=== PATIENT | male | born 1970 | race Two or more races ===

== ENCOUNTER → 2020-06-12 11:32 | Outpatient (BNVA) | payer MEDICARE, SELFPAY | PROVIDERS: PCP Internal Medicine; Visit Provider Internal Medicine Cardiovascular Disease | DX: Z01.810 Encounter for preprocedural cardiovascular examination (principal); I10 Essential (primary) hypertension; E66.01 Morbid (severe) obesity due to excess calories; Z68.43 Body mass index [BMI] 50.0-59.9, adult; Z79.899 Other long term (current) drug therapy | CPT/HCPCS: 99213 ==

== ENCOUNTER 2020-06-21 18:26 | Emergency (ER) | payer MEDICARE, SELFPAY ==
[2020-06-21 18:34] VITALS: BP 140/80; PULSE 83; RESP 16; TEMP 36.7; O2SAT 99; BMI 50.8
--- NOTE | 2020-06-21 19:56 | ED_ITS ---
HPI - Back Pain/Injury General Chief Complaint: Back Pain/Injury Stated Complaint: back pain Time Seen by Provider: 06/21/20 19:40 Source: patient Mode of arrival: ambulatory History of Present Illness HPI Narrative: 50-year-old male complaining of left-sided mid/ upper back pain x3 days. Reports taking Tylenol/ Motrin, and Percocet at home without relief. Denies direct trauma/ falls. Reports pain worse with movement/ arm movement. Denies numbness, tingling, weakness, urinary incontinence or retention Related Data Home Medications Medication Instructions Recorded Confirmed amlodipine 5 mg tablet 5 mg PO DAILY 06/10/20 06/12/20 atenolol 50 mg tablet 50 mg PO DAILY 06/10/20 06/12/20 celecoxib 200 mg capsule 0 mg PO 06/10/20 06/12/20 cetirizine 10 mg tablet 10 mg PO DAILY 06/10/20 06/12/20 cholecalciferol (vitamin D3) 50 50 mcg PO DAILY 06/10/20 06/12/20 mcg (2,000 unit) capsule cyanocobalamin (vitamin B-12) 1,000 mcg PO DAILY 06/10/20 06/12/20 1,000 mcg tablet,extended release duloxetine 60 mg capsule,delayed 0 mg PO 06/10/20 06/12/20 release furosemide 20 mg tablet 20 mg PO QAM 06/10/20 06/12/20 lisinopril 20 mg tablet 20 mg PO DAILY 06/10/20 06/12/20 omeprazole 20 mg capsule,delayed 20 mg PO DAILY 06/10/20 06/12/20 release oxycodone-acetaminophen 5 mg-325 1 tab PO TID PRN 06/10/20 06/12/20 mg tablet Previous Rx's Medication Instructions Recorded cyclobenzaprine 5 mg PO Q8H PRN 5 Days #14 tab 06/21/20 lidocaine [Lidoderm] 1 patch TOPICAL DAILY PRN #30 ea 06/21/20 MDD remove after 12 hours Allergies Allergy/AdvReac Type Severity Reaction Status Date / Time No Known Allergies Allergy Unverified 05/29/20 17:45 Review of Systems Review of Systems: Constitutional: No Weight loss, No Fever, No Chills Cardiovascular: No Chest Pain, No SOB Respiratory: No Cough Gastrointestinal: No Nausea, No Vomiting, No Diarrhea, No Constipation, No Abdominal pain Genitourinary: No Urinary Incontinence /retention, No Flank Pain, No Urinary Flow Changes Musculoskeletal: No joint pain, No Myalgias, No Joint Swelling Skin: No Skin Lesions, No rash Neuro: No Weakness, No Numbness, No Paresthesias Yes all other systems are reviewed and are negative Neurologic: Denies Sensory deficit (Neuro) [facility] Past Medical History Attestation statement: The following information was validated with the patient. Medical History (Updated 06/21/20 @ 19:58 by KINZA Manzanares) Carpal tunnel syndrome Depression GERD (gastroesophageal reflux disease) Hypertension Migraine Morbid obesity Osteoarthritis Sleep apnea Surgical History (Updated 06/07/20 @ 10:46 by CHERYL Crane) History of bunionectomy of left great toe Social History Social History (Updated 06/12/20 @ 11:49 by CHERYL Crane) Alcohol intake: former Smoking Status: Former smoker Smoked in Last 30 Days: No Use of substances other than those prescribed or required for medical reasons: No Advance Directives: No Advance Directives Information Provided: Yes Physical Exam Vital Signs: Vital Signs: Vital Signs Temp Pulse Resp BP Pulse Ox 06/21/20 18:34 98.0 F 83 16 140/80 H 99 Body Mass Index 50.8 Const: General: cooperative and healthy appearing Orientation/consciousness: patient oriented x3 Limitations: no limitations HENMT: Head: Yes normal to inspection Ears: hearing grossly normal bilaterally General nose exam: Normal external nose present Face and sinus: Yes normal facial exam Eyes: General: appearance normal, both eyes and all related structures EOM: EOMs intact bilaterally Neck: Neck: Yes normal visual inspection and No midline deformity Resp: Effort & Inspection: normal respiratory effort Back/Spine/Pelvis: Other: left mid thoracic MSK tenderness. No deformity. No midline spinous tenderness throughout Skin: Wounds: no wounds Neuro: Other: no saddle anesthesia General: patient oriented x3 Gait exam (Neuro): Normal gait present Motor exam (neuro): 5/5 motor strength present throughout Sensory Exam: No Sensory deficit (Neuro) Extrem: General: Yes normal to inspection Course Course Course Narrative: no red flag symptoms or midline spinous tenderness throughout. Likely MSK pain. Low concern for cauda equina/cord compression Discharge Plan Discharge Clinical Impression: Thoracic back pain Patient Disposition: Home, Self-Care Instructions: Back Pain (ED) Additional Instructions: continue taking Tylenol and Motrin at home In addition continue taking previously prescribed Percocet only when pain is severe Add Flexeril to her regimen. It is a muscle relaxer, take at night as it makes you drowsy, do not drive, drink alcohol, or operate anything while taking it In addition Lidoderm patches or numbing patches, apply to painful area if you develop numbness, tingling, weakness, or incontinence return to the ED Prescriptions: New lidocaine [Lidoderm] 5 % adhesive patch,medicated 1 patch topical DAILY MDD remove after 12 hours PRN (Reason: pain) Qty: 30 RF: 0 cyclobenzaprine 5 mg tablet 5 mg PO Q8H PRN (Reason: pain (scale score 7-10)) 5 Days Qty: 14 RF: 0 No Action oxycodone-acetaminophen 5-325 mg tablet 1 tab PO TID PRNRF: 0 cholecalciferol (vitamin D3) 50 mcg (2,000 unit) capsule 50 mcg PO DAILY RF: 0 atenolol 50 mg tablet 50 mg PO DAILY RF: 0 omeprazole 20 mg capsule,delayed release(DR/EC) 20 mg PO DAILY RF: 0 amlodipine 5 mg tablet 5 mg PO DAILY RF: 0 cetirizine 10 mg tablet 10 mg PO DAILY RF: 0 cyanocobalamin (vitamin B-12) 1,000 mcg tablet extended release 1,000 mcg PO DAILY RF: 0 duloxetine 60 mg capsule,delayed release(DR/EC) 0 mg PO RF: 0 furosemide 20 mg tablet 20 mg PO QAM RF: 0 lisinopril 20 mg tablet 20 mg PO DAILY RF: 0 celecoxib 200 mg capsule 0 mg PO RF: 0 Referrals: Paola Cooney MD [Primary Care Provider] - 5 days
== END 2020-06-21 20:35 | disposition home or self-care (01) ==
PROVIDERS: Emergency Provider Emergency Medicine Emergency Medical Services; PCP Internal Medicine
DX: M54.6 Pain in thoracic spine (principal); I10 Essential (primary) hypertension; Z87.891 Personal history of nicotine dependence; Z79.899 Other long term (current) drug therapy
CPT/HCPCS: 99283; 99284

== ENCOUNTER → 2020-07-02 08:17 | Outpatient (BNVA) | payer MEDICARE, SELFPAY | PROVIDERS: PCP Internal Medicine; Referring Provider Internal Medicine; Visit Provider Surgery | DX: E66.01 Morbid (severe) obesity due to excess calories (principal); Z71.3 Dietary counseling and surveillance | CPT/HCPCS: 99212 ==

== ENCOUNTER 2020-07-08 11:51 | Outpatient (REF) | payer MEDICARE, SELFPAY ==
--- NOTE | 2020-07-08 11:55 | XR_ITS ---
EXAMINATION: XR CHEST CLINICAL INFORMATION: Sleep apnea. COMPARISON: Chest 01/12/2017 TECHNIQUE: 2 views of the chest were obtained. FINDINGS: The lungs are well-expanded and clear. The heart size and pulmonary vascularity is normal. There is mild spondylosis dorsal spine. No lytic process. XR/XR chest 2V IMPRESSION: Unremarkable chest exam.
== END 2020-07-08 11:52 | disposition home or self-care (01) ==
LOC: HO.XRAY 11:51
PROVIDERS: PCP Internal Medicine; Visit Provider Surgery
DX: G47.30 Sleep apnea, unspecified (principal); I10 Essential (primary) hypertension
CPT/HCPCS: 71046

== ENCOUNTER 2020-07-22 17:48 | Outpatient (REF) | payer MEDICARE, SELFPAY | END 2020-07-22 17:49 | disposition home or self-care (01) | LOC: HO.LAB 17:48 | PROVIDERS: PCP Internal Medicine; Visit Provider Internal Medicine | DX: Z20.828 Contact with and (suspected) exposure to other viral communicable diseases (principal) | CPT/HCPCS: C9803; U0003 ==

== ENCOUNTER → 2020-08-19 08:09 | Outpatient (BNVA) | payer MEDICARE, SELFPAY | PROVIDERS: PCP Internal Medicine; Referring Provider Internal Medicine; Visit Provider Surgery | DX: E66.01 Morbid (severe) obesity due to excess calories (principal); G47.30 Sleep apnea, unspecified; K21.9 Gastro-esophageal reflux disease without esophagitis; I10 Essential (primary) hypertension | CPT/HCPCS: Q3014 ==

== ENCOUNTER → 2020-08-21 08:23 | Outpatient (BNVA) | payer MEDICARE, SELFPAY | PROVIDERS: PCP Internal Medicine; Referring Provider Internal Medicine; Visit Provider Dietitian, Registered | DX: Z76.89 Persons encountering health services in other specified circumstances (principal) ==

== ENCOUNTER → 2020-08-22 08:21 | Outpatient (BNVA) | payer MEDICARE, SELFPAY | PROVIDERS: PCP Internal Medicine; Referring Provider Internal Medicine; Visit Provider Dietitian, Registered | DX: Z76.89 Persons encountering health services in other specified circumstances (principal) ==

== ENCOUNTER → 2020-09-23 08:09 | Outpatient (BNVA) | payer MEDICARE, SELFPAY | PROVIDERS: PCP Internal Medicine; Visit Provider Surgery | DX: Z13.89 Encounter for screening for other disorder (principal) | CPT/HCPCS: Q3014 ==

== ENCOUNTER → 2020-10-01 08:05 | Outpatient (BNVA) | payer MEDICARE, SELFPAY | PROVIDERS: PCP Internal Medicine; Visit Provider Surgery | DX: E66.01 Morbid (severe) obesity due to excess calories (principal); I10 Essential (primary) hypertension; G47.30 Sleep apnea, unspecified; K21.9 Gastro-esophageal reflux disease without esophagitis | CPT/HCPCS: Q3014 ==

== ENCOUNTER → 2020-10-03 10:34 | Outpatient (BNVA) | payer OTHER, SELFPAY | PROVIDERS: PCP Internal Medicine; Visit Provider Physician Assistant ==

== ENCOUNTER 2020-10-09 10:17 | Inpatient (IN) | payer OTHER, SELFPAY ==
--- NOTE | 2020-10-03 | ECG_ITS ---
Test Reason : ARACELY Blood Pressure : / mmHG Vent. Rate : 064 BPM Atrial Rate : 064 BPM P-R Int : 164 ms QRS Dur : 094 ms QT Int : 408 ms P-R-T Axes : 037 -20 010 degrees QTc Int : 420 ms Normal sinus rhythm Moderate voltage criteria for LVH, may be normal variant Borderline ECG When compared with ECG of 17-NOV-2015 08:04, No significant change was found Referred By: Ivonne Hinojosa Electronically Signed By:KJ HASTINGS
[2020-10-03 09:36] LABS: MANUAL DIFF FLAG NO
[2020-10-03 10:04] LABS: Basophils Percent Auto 0.3 % (0-2); Eosinophils Absolute Auto 0.2 X10*3/uL (0.0-0.4); Eosinophils Percent Auto 2.8 % (0-4); Hematocrit 47.9 % (42-52); Imm Gran Abs Auto 0.02 X10*3/uL (0.00-0.03); Imm Gran Pct Auto 0.3 % (0.0-0.4); Lymphocytes Percent Auto 27.4 % (20-40); Mean Corpuscular HGB Conc 33.4 g/dl (31.0-36.0); Mean Corpuscular Hemoglobin 30.9 pg (27.0-33.0); Mean Corpuscular Volume 92.6 fL (80-98); Mean Platelet Volume 10.5 fL (9.4-12.4); Monocytes Absolute Auto 0.8 X10*3/uL (0.1-1.2); Monocytes Percent Auto 10.2 % (2-11); Neutrophils Absolute Auto 4.4 X10*3/uL (2.0-8.3); Platelet Count 230 X10*3/uL (160-400); Red Blood Count 5.17 X10*6/uL (4.60-5.80); Red Cell Distribution Width 13.2 % (11.0-16.0); White Blood Count 7.5 X10*3/uL (4.8-10.8)
[2020-10-03 10:10] LABS: INTERNATIONAL NORM RATIO 1.2 (0.9-1.1); Prothrombin Time 14.4 SEC (10.8-13.0)
[2020-10-03 10:31] LABS: Estimated Average Glucose 105 mg/dL; Hemoglobin A1c % 5.3 %
[2020-10-03 11:06] LABS: Alanine Aminotransferase 20 U/L (0-40); Albumin Level 4.3 g/dL (3.5-5.0); Alkaline Phosphatase 61 U/L (39-117); Anion Gap 13 (12-20); Aspartate Amino Transferase 25 U/L (5-37); Blood Urea Nitrogen 20 mg/dL (9-16); C Reactive Protein 1.89 mg/dL (< or = 0.50); Calcium 9.3 mg/dL (8.4-10.2); Carbon Dioxide 30 mmol/L (22-29); Chloride 102 mmol/L (96-108); Cholesterol 151 mg/dL; Estimated Glomerular Filt Rate > 60; Glucose Random 91 mg/dL (60-115); HDL Cholesterol 36 mg/dL; LDL Cholesterol Calculated 107 mg/dl; Potassium 4.2 mmol/l (3.3-5.1); Sodium 141 mmol/L (135-145); Total Protein 7.5 g/dL (6.5-8.0); Triglycerides 41 mg/dL
[2020-10-03 11:10] LABS: TSH reflex Free T4 1.38 mIU/mL (0.32-4.0)
[2020-10-03 11:55] VITALS: BP 143/68; PULSE 76; RESP 20; O2SAT 98; BMI 47.4
--- NOTE | 2020-10-03 12:32 | P.CONAN_ITS ---
Documented by User: Ivonne Hollingsworthney 10/06/20 14:23 HPI - Anesthesia Eval Consult details Narrative: 50yo M for Gastrectomy Sleeve Cardiac cleared 11/2019, Harjeet delayed d/t COVID. No changes. Continues to f/u with cardiology for htn. [facility] Past Medical History Medical History Carpal tunnel syndrome Depression GERD (gastroesophageal reflux disease) Hx of renal calculi Hypertension Migraine Osteoarthritis Sleep apnea Family History Family History Father Arthritis Mother No problems noted. Brother No problems noted. Sister No problems noted. Sister No problems noted. Sister No problems noted. Sister No problems noted. Sister No problems noted. Son No problems noted. Son No problems noted. Son No problems noted. Son No problems noted. Family history of problems with anesthesia: No Surgical History Surgical History History of bunionectomy of left great toe History of varicose vein ligation Morbid obesity History of Problems with Anesthesia: No Social History Social History (Updated 10/03/20 @ 12:21 by Ary Blankenship) Household Members: Family Are you a primary long term acute care registered nurse to a significant other at home: No Do you presently have visiting nurse or other home services: No Alcohol intake: current Alcohol intake frequency: holidays/special occasions only Smoking Status: Former smoker Tobacco Type: Cigarette Cigarettes Per Day: 1 Years Smoked: <1 Smoked in Last 30 Days: No Smoking Quit Date: 2000 Use of substances other than those prescribed or required for medical reasons: No Have you been hit, kicked, punched, or otherwise hurt by someone within the past year? If so, by whom?: No Advance Directives Information Provided: No Recently lost weight without trying: No Narrative Narrative: No recent illness. No CP/SOB with walking. Activity limited to knee pain. Meds Allergies Allergy/AdvReac Type Severity Reaction Status Date / Time No Known Allergies Allergy Verified 10/09/20 10:08 Home Medications Medication Instructions Recorded Confirmed Type atenolol 50 mg tablet 50 mg PO DAILY 06/10/20 10/03/20 History cetirizine 10 mg tablet 10 mg PO DAILY 06/10/20 10/03/20 History duloxetine 60 mg capsule,delayed 60 mg PO BID 06/10/20 10/03/20 History release furosemide 20 mg tablet 20 mg PO QAM 06/10/20 10/03/20 History lisinopril 20 mg tablet 20 mg PO DAILY 06/10/20 10/03/20 History omeprazole 20 mg capsule,delayed 20 mg PO BEDTIME 06/10/20 10/03/20 History release oxycodone-acetaminophen 5 mg-325 1 tab PO TID PRN 06/10/20 10/03/20 History mg tablet hydroxyzine pamoate [Vistaril] 50 mg PO BEDTIME PRN 10/03/20 10/03/20 History Exam Exam Date and Time: October 03, 2020 1232 Height,Weight and Vital Signs: Height 5 ft 8 in Weight 141.5 kg Last Vital Signs Pulse 76 10/03/20 11:55 Resp 20 10/03/20 11:55 BP 143/68 H 10/03/20 11:55 Pulse Ox 98 10/03/20 11:55 Pertinent Lab Results Pertinent Lab Results: Laboratory Tests 10/03/20 10/03/20 10/03/20 09:11 09:11 09:11 WBC 7.5 RBC 5.17 Hgb 16.0 Hct 47.9 MCV 92.6 MCH 30.9 MCHC 33.4 RDW 13.2 Plt Count 230 MPV 10.5 Immature Gran % (Auto) 0.3 Neut % (Auto) 59.0 Lymph % (Auto) 27.4 Crisp % (Auto) 10.2 Eos % (Auto) 2.8 Baso % (Auto) 0.3 Lymph # (Auto) 2.0 Crisp # (Auto) 0.8 Eos # (Auto) 0.2 Baso # (Auto) 0.0 Abs Immat Gran (auto) 0.02 Absolute Neuts (auto) 4.4 Absolute Nucleated RBC 0.000 Nucleated RBC % (auto) 0.0 PT 14.4 H INR 1.2 H APTT 34.0 Sodium 141 Potassium 4.2 Chloride 102 Carbon Dioxide 30 H Anion Gap 13 BUN 20 H Creatinine 0.77 Estim Creat Clear Calc TNP Estimated GFR > 60 Random Glucose 91 Estimat Average Glucose Hemoglobin A1c % Calcium 9.3 Total Bilirubin 1.0 AST 25 ALT 20 Alkaline Phosphatase 61 C-Reactive Protein 1.89 H Total Protein 7.5 Albumin 4.3 Triglycerides 41 Cholesterol 151 LDL Cholesterol, Calc 107 HDL Cholesterol 36 TSH 1.38 Blood Type Antibody Screen 10/03/20 10/03/20 09:11 09:11 WBC RBC Hgb Hct MCV MCH MCHC RDW Plt Count MPV Immature Gran % (Auto) Neut % (Auto) Lymph % (Auto) Crisp % (Auto) Eos % (Auto) Baso % (Auto) Lymph # (Auto) Crisp # (Auto) Eos # (Auto) Baso # (Auto) Abs Immat Gran (auto) Absolute Neuts (auto) Absolute Nucleated RBC Nucleated RBC % (auto) PT INR APTT Sodium Potassium Chloride Carbon Dioxide Anion Gap BUN Creatinine Estim Creat Clear Calc Estimated GFR Random Glucose Estimat Average Glucose 105 Hemoglobin A1c % 5.3 Calcium Total Bilirubin AST ALT Alkaline Phosphatase C-Reactive Protein Total Protein Albumin Triglycerides Cholesterol LDL Cholesterol, Calc HDL Cholesterol TSH Blood Type O Positive Antibody Screen NEGATIVE Narrative Narrative: CXR 06/2020 Unremarkable exam. ECHO 10/2019 LVEF 60-65% No RWMA No valve pathology MIBI 2019: No definitive evidence of ischemia or infarction Gated LVEF 48% no transient ischemic dilation but LV chamber is dilated EKG 10/03/20 Normal sinus rhythm @ 64 Moderate voltage criteria for LVH, may be normal variant Borderline ECG When compared with ECG of 17-NOV-2015 08:04, No significant change was found Airway TM Dist: >3cm Neck ROM: Full Adult Head Mouth w/Numbe Teeth: 1. Missing Loose/Missing/Broken Teeth: Yes (Molars pulled) Heart: RRR Lungs: CTAB Assessment and Plan Assessment Anesthesia Assessment: Anesthesia Plan Discussed and PAT Visit Documented by User: Luis A Langley MD 10/09/20 12:56 [facility] Past Medical History Medical History Carpal tunnel syndrome Depression GERD (gastroesophageal reflux disease) Hx of renal calculi Hypertension Migraine Osteoarthritis Sleep apnea Family History Family History Father Arthritis Mother No problems noted. Brother No problems noted. Sister No problems noted. Sister No problems noted. Sister No problems noted. Sister No problems noted. Sister No problems noted. Son No problems noted. Son No problems noted. Son No problems noted. Son No problems noted. Surgical History Surgical History History of bunionectomy of left great toe History of varicose vein ligation Morbid obesity Social History Social History (Updated 10/03/20 @ 12:21 by Ary Blankenship) Household Members: Family Are you a primary long term acute care registered nurse to a significant other at home: No Do you presently have visiting nurse or other home services: No Alcohol intake: current Alcohol intake frequency: holidays/special occasions only Smoking Status: Former smoker Tobacco Type: Cigarette Cigarettes Per Day: 1 Years Smoked: <1 Smoked in Last 30 Days: No Smoking Quit Date: 2000 Use of substances other than those prescribed or required for medical reasons: No Have you been hit, kicked, punched, or otherwise hurt by someone within the past year? If so, by whom?: No Advance Directives Information Provided: No Recently lost weight without trying: No Meds Allergies Allergy/AdvReac Type Severity Reaction Status Date / Time No Known Allergies Allergy Verified 10/09/20 10:08 Home Medications Medication Instructions Recorded Confirmed Type atenolol 50 mg tablet 50 mg PO DAILY 06/10/20 10/03/20 History cetirizine 10 mg tablet 10 mg PO DAILY 06/10/20 10/03/20 History duloxetine 60 mg capsule,delayed 60 mg PO BID 06/10/20 10/03/20 History release furosemide 20 mg tablet 20 mg PO QAM 06/10/20 10/03/20 History lisinopril 20 mg tablet 20 mg PO DAILY 06/10/20 10/03/20 History omeprazole 20 mg capsule,delayed 20 mg PO BEDTIME 06/10/20 10/03/20 History release oxycodone-acetaminophen 5 mg-325 1 tab PO TID PRN 06/10/20 10/03/20 History mg tablet hydroxyzine pamoate [Vistaril] 50 mg PO BEDTIME PRN 10/03/20 10/03/20 History Exam Airway Adult Head Mouth w/Numbe Teeth: 1. Missing Loose/Missing/Broken Teeth: Yes Assessment and Plan Assessment Anesthesia Assessment: Anesthesia Plan Discussed and Chart Reviewed Final Anesthetic Review NPO: Yes ASA Class: III Final Preanesthetic Review: No Changes in Pt Med Stat, Meds/Allgs Chart Reviewed, Consent Obtained/Reviewed and Anes Risks/Benef Reviewed Patient Risk: High Procedure Risk: Intermediate Anesthetic Plan Anesthetic Plan: GA Disposition: Standard PACU
[2020-10-06 12:53] LABS: Insulin Level Total 15.2 uIU/mL
--- NOTE | 2020-10-08 20:52 | MHC.SHP ---
Pre-Procedural Eval Section A The patient is an INPATIENT: Yes The History & Physical has been completed within 30 days and I have reviewed it.: No Section B Chief Complaint: obesity Details of Present Illness: Morbid obesity Relevant Family History (Specify if Yes): No Relevant Social History: None Present Medications: see Short Stay Collaborative assessment Medical History: No relevant PMH History of Previous Operations: No relevant previous surgery Allergies: Allergies Allergy/AdvReac Type Severity Reaction Status Date / Time No Known Allergies Allergy Verified 10/03/20 12:21 Review of Systems Sugical H&P ROS: Negative: Constitution, Cardiovascular, Respiratory, Neurological, Psychiatric, Hem-Onc, Allergic/Immunologic, Gastrointestinal, Genitourinary, Musculoskeletal, Integumentary, Endocrine and Eyes/Ears/Nose/Throat Exam Surgical H&P Exam: Normal: HEENT, Normal: Heart, Normal: Lungs, Normal: Extremities, Normal: Abdomen, Normal: Skin and Normal: Neurological Plan Diagnosis/Plan: Unchanged I have reviewed the history and physical and performed a pertinent physical examination on my patient. No changes have occurred unless specified.
[2020-10-09] VITALS (13 sets, daily range): BP systolic 122–165; BP diastolic 62–98; PULSE 66–157; RESP 14–20; TEMP 35.9–37; O2SAT 95–100
[2020-10-09] MEDS: Lactated Ringers 1,000 ML 999 ML IVCONT (10:35)
[2020-10-09] MEDS: Lactated Ringers 1,000 ML 100 ML IVCONT (10:40)
[2020-10-09 10:44] LABS: COVID-19 Test Negative (Negative)
[2020-10-09] MEDS: ceFAZolin Sodium/Dextrose,Iso 2 GM/50 ML PIGGYBACK IV ×2 (11:12→19:36)
--- NOTE | 2020-10-09 17:09 | P.DS_ITS ---
DS: Providers Provider Date of Service: 10/10/20 Date of admission: 10/09/20 10:17 Primary care physician: Paola Cooney MD DS: Medications Discharge Medications Home Medications: Home Medications Medication Instructions Recorded Confirmed atenolol 50 mg tablet 50 mg PO DAILY 06/10/20 10/03/20 cetirizine 10 mg tablet 10 mg PO DAILY 06/10/20 10/03/20 duloxetine 60 mg capsule,delayed 60 mg PO BID 06/10/20 10/03/20 release furosemide 20 mg tablet 20 mg PO QAM 06/10/20 10/03/20 lisinopril 20 mg tablet 20 mg PO DAILY 06/10/20 10/03/20 omeprazole 20 mg capsule,delayed 20 mg PO BEDTIME 06/10/20 10/03/20 release oxycodone-acetaminophen 5 mg-325 1 tab PO TID PRN 06/10/20 10/03/20 mg tablet hydroxyzine pamoate [Vistaril] 50 mg PO BEDTIME PRN 10/03/20 10/03/20 Previous Rx's Medication Instructions Recorded lidocaine [Lidoderm] 1 patch TOPICAL DAILY PRN #30 ea 06/21/20 MDD remove after 12 hours amlodipine 5 mg tablet 5 mg PO QAM #30 tab 07/23/20 ondansetron HCl 4 mg tablet 4 mg PO Q6H PRN #30 tab 10/01/20 pantoprazole 40 mg tablet,delayed 40 mg PO DAILY #30 tab 10/01/20 release polyethylene glycol 3350 17 gram 17 g PO DAILY #14 ea 10/01/20 oral powder packet sucralfate 100 mg/mL oral 10 ml PO BID #420 ml 10/01/20 suspension DS: Summary Time Spent with Patient Time attestation: ADMITTING DIAGNOSIS: morbid obesity, HTN, GERD, migraines , arthritis, ARACELY, depression, hiatal hernia DISCHARGE DIAGNOSIS: same, s/p laparoscopic sleeve gastrectomy and repair of hiatal hernia PAST SURGICAL HISTORY: bunionectomy PROCEDURE: upper endoscopy, laparoscopic sleeve gastrectomy with gastropexy, repair of hiatal hernia and lysis of adhesions DISCHARGE SUMMARY: History of Present Illness: The patient is a 50 year-old man with a BMI of 53.49 kg/m2 and associated co- morbidities as described above. The patient had extensive work-up,lost 39.6 lbs preoperatively and was electively scheduled for laparoscopic, possible open s leeve gastrectomy and gastropexy. Risks and complications of the surgery were discussed with the patient in advance, particularly the possibility of , pulmonary embolism, anastomotic leak, bleeding, bowel injury, GERD, cardiac, renal or pulmonary complications. The patient understood all the risks and was in agreement with the surgical plan. Hospital Course: The patient underwent an uneventful laparoscopic sleeve gastrectomy with gastropexy and repair of hiatal hernia on the day of admission. Postoperatively, the patient was transferred to the surgical floor. The patient was on IV Aceta minophen and IV dilaudid for pain control. Patient was started on bariatric phase 1 diet POD #0. On postoperative day one, the patient was feeling well without nausea, vomiting, fevers, or tachycardia. The patient had some mild incisional pain. The abdomen was soft. On the morning of postoperative day one, the patient was continued on 1 ounce of water or ice every half hour. During the first day, the patient did fairly well, having some incisional pain, but able to ambulate adequately and to tolerate liquids well. Since the patient is doing well, we decided that the patient was ready to be discharged. The patient was given instructions to follow-up with me next week and to call my office for any fever over 101, persistent abdominal pain, nausea, vomiting, GERD, symptoms of DVT such as calf tenderness, or leg swelling, or pulmonary embolism such as chest pain or shortness of breath. The patient was also instructed to drink 40-60 ounces of liquids per day using the 1-ounce cups. The patient was given prescription for Tylenol for pain, Zofran prn for nausea, and pantoprazole and carafate. The patient was encouraged to ambulate and use the incentive spirometer. The patient was allowed to shower, but no baths, and encouraged to stay active at home. All of these instructions were given to the patient personally. All questions were answered and the patient understood all instructions, the instructions were also given to the patient in print. Total time spent providing and/or coordinating discharge services: 30 minutes Discharge coordination time: Greater than 30 minutes Physical Exam Vital Signs: Vital Signs: Last Vital Signs Temp 98.6 F 10/09/20 16:55 Pulse 87 10/09/20 16:55 Resp 14 10/09/20 16:55 BP 154/88 H 10/09/20 16:55 Pulse Ox 97 10/09/20 16:55 Body Mass Index 47.4 DS: Data Data Completed and Pending Pending studies at discharge: Pending at discharge 10/09/20 16:24 Surgical [PTH] Routine Labs on day of discharge: Laboratory Tests 10/03/20 10/03/20 10/03/20 09:11 09:11 09:11 WBC 7.5 RBC 5.17 Hgb 16.0 Hct 47.9 MCV 92.6 MCH 30.9 MCHC 33.4 RDW 13.2 Plt Count 230 MPV 10.5 Immature Gran % (Auto) 0.3 Neut % (Auto) 59.0 Lymph % (Auto) 27.4 [place] % (Auto) 10.2 Eos % (Auto) 2.8 Baso % (Auto) 0.3 Lymph # (Auto) 2.0 [place] # (Auto) 0.8 Eos # (Auto) 0.2 Baso # (Auto) 0.0 Abs Immat Gran (auto) 0.02 Absolute Neuts (auto) 4.4 Absolute Nucleated RBC 0.000 Nucleated RBC % (auto) 0.0 PT 14.4 H INR 1.2 H APTT 34.0 Sodium 141 Potassium 4.2 Chloride 102 Carbon Dioxide 30 H Anion Gap 13 BUN 20 H Creatinine 0.77 Estim Creat Clear Calc TNP Estimated GFR > 60 Random Glucose 91 Estimat Average Glucose Hemoglobin A1c % Total Insulin Calcium 9.3 Total Bilirubin 1.0 AST 25 ALT 20 Alkaline Phosphatase 61 C-Reactive Protein 1.89 H Total Protein 7.5 Albumin 4.3 Triglycerides 41 Cholesterol 151 LDL Cholesterol, Calc 107 HDL Cholesterol 36 TSH 1.38 COVID-19 (RAF) COVID-19 Clin Com Blood Type Antibody Screen 10/03/20 10/03/20 10/03/20 09:11 09:11 09:11 WBC RBC Hgb Hct MCV MCH MCHC RDW Plt Count MPV Immature Gran % (Auto) Neut % (Auto) Lymph % (Auto) [place] % (Auto) Eos % (Auto) Baso % (Auto) Lymph # (Auto) [place] # (Auto) Eos # (Auto) Baso # (Auto) Abs Immat Gran (auto) Absolute Neuts (auto) Absolute Nucleated RBC Nucleated RBC % (auto) PT INR APTT Sodium Potassium Chloride Carbon Dioxide Anion Gap BUN Creatinine Estim Creat Clear Calc Estimated GFR Random Glucose Estimat Average Glucose 105 Hemoglobin A1c % 5.3 Total Insulin 15.2 Calcium Total Bilirubin AST ALT Alkaline Phosphatase C-Reactive Protein Total Protein Albumin Triglycerides Cholesterol LDL Cholesterol, Calc HDL Cholesterol TSH COVID-19 (RAF) COVID-19 [employer] Com Blood Type O Positive Antibody Screen NEGATIVE 10/09/20 10:15 WBC RBC Hgb Hct MCV MCH MCHC RDW Plt Count MPV Immature Gran % (Auto) Neut % (Auto) Lymph % (Auto) [place] % (Auto) Eos % (Auto) Baso % (Auto) Lymph # (Auto) [place] # (Auto) Eos # (Auto) Baso # (Auto) Abs Immat Gran (auto) Absolute Neuts (auto) Absolute Nucleated RBC Nucleated RBC % (auto) PT INR APTT Sodium Potassium Chloride Carbon Dioxide Anion Gap BUN Creatinine Estim Creat Clear Calc Estimated GFR Random Glucose Estimat Average Glucose Hemoglobin A1c % Total Insulin Calcium Total Bilirubin AST ALT Alkaline Phosphatase C-Reactive Protein Total Protein Albumin Triglycerides Cholesterol LDL Cholesterol, Calc HDL Cholesterol TSH COVID-19 (RAF) Negative COVID-19 Clin Com See Note Blood Type Antibody Screen Discharge Plan Discharge Anticipated Discharge Date/Time: 10/10/20 11:06 Patient Disposition: Home, Self-Care Referrals: Paola Cooney MD [Primary Care Provider] - Discharge Medications: Continued amlodipine 5 mg tablet 5 mg PO QAM Qty: 30 RF: 5 lidocaine [Lidoderm] 5 % adhesive patch,medicated 1 patch topical DAILY MDD remove after 12 hours PRN (Reason: pain) Qty: 30 RF: 0 hydroxyzine pamoate [Vistaril] 50 mg Capsule 50 mg PO BEDTIME PRN (Reason: Insomnia) RF: 0 pantoprazole 40 mg tablet,delayed release (DR/EC) 40 mg PO DAILY Qty: 30 RF: 2 sucralfate 100 mg/mL suspension 10 ml PO BID Qty: 420 RF: 2 ondansetron HCl [Zofran] 4 mg tablet 4 mg PO Q6H PRN (Reason: nausea and vomiting) Qty: 30 RF: 0 oxycodone-acetaminophen 5-325 mg tablet 1 tab PO TID PRN (Reason: Pain) RF: 0 atenolol 50 mg tablet 50 mg PO DAILY RF: 0 omeprazole 20 mg capsule,delayed release(DR/EC) 20 mg PO BEDTIME RF: 0 cetirizine 10 mg tablet 10 mg PO DAILY RF: 0 duloxetine 60 mg capsule,delayed release(DR/EC) 60 mg PO BID RF: 0 furosemide 20 mg tablet 20 mg PO QAM RF: 0 lisinopril 20 mg tablet 20 mg PO DAILY RF: 0 Discontinued polyethylene glycol 3350 [Miralax] 17 gram powder in packet 17 g PO DAILY Qty: 14 RF: 0 Discharge Orders: Discharge Order (Routine); Ordered 10/10/20 Ordered By: Jerald Dominguez Diet: other Activity on Discharge: No heavy lifting Stand Alone Forms: Patient Portal Discharge page Activity Restrictions/Additional Instructions: No tub baths, sex or returning to work until discussed at first post op appointment. No exercise, alcohol, tobacco or illegal drug use. Continue to use incentive spirometer hourly while awake. Walk in home for 5- 10 minutes every 2 hours during the first week. Continue phase 1 diet today and start phase 2 diet tomorrow morning. Follow all instructions in the bariatric handbook and call with any questions. Visit Report Forms: Patient Portal Discharge page Care Plan Goals: weight loss Health Concerns: morbid obesity Plan of Treatment: see discharge instructions
[2020-10-09] MEDS: Metoclopramide HCl 10 MG/2 ML VIAL IVPUSH (17:58)
[2020-10-09] MEDS: Famotidine/PF 20 MG/2 ML VIAL IVPUSH ×2 (18:01→21:52)
[2020-10-09 19:27] LABS: Hematocrit 47.1 % (42-52); Hemoglobin 15.7 g/dl (14.0-18.0)
[2020-10-09] MEDS: Lactated Ringers 1,000 ML 125 ML IVCONT (19:32)
[2020-10-09 19:57] LABS: Anion Gap 16 (12-20); Blood Urea Nitrogen 13 mg/dL (9-16); Calcium 8.6 mg/dL (8.4-10.2); Carbon Dioxide 25 mmol/L (22-29); Chloride 103 mmol/L (96-108); Creatinine Clr Calc Pharmacy 166.3; Estimated Glomerular Filt Rate > 60; Glucose Random 157 mg/dL (60-115); Potassium 3.8 mmol/l (3.3-5.1); Sodium 140 mmol/L (135-145)
--- NOTE | 2020-10-09 20:09 | PM.OP ---
Brief Operative Note Date of Service: 10/09/20 Pre-op diagnosis: Refractory morbid obesity and comorbidities (see below) Post-op diagnosis: same (diaphragmatic hernia, umbilical hernia and adhesions) Procedure: INITIAL PATIENT BMI ON PRESENTATION AT OUR OFFICE: 53.5 kg/m2 LAST BMI BEFORE SURGERY: 46.8 kg/m2 COMORBIDITIES: diaphragmatic hernia, incarcerated umbilical hernia, intra-abdominal adhesions, sleep apnea, GERD, hypertension, lower extremity edema, degenerative joint disease, depression, liver steatosis, liver fibrosis The patient participated in an intensive weekly lifestyle intervention and exercise program during which the patient has lost between the initial office visit and the last preoperative visit 43.2 lbs, or 12.28% of initial actual body weight. The patient met the BMI-criteria for bariatric surgery based on the BMI on initial presentation. The patient should not be penalized for achieving such weight loss because it is not sustainable long-term without surgical intervention and it was achieved in preparation for bariatric surgery under my direction and based on my published research ([email or web address] and [email or web address]) that a 10% preoperative weight loss improves long-term weight loss after surgery and reduces perioperative complications. Insurance carriers such as [facility] have endorsed my recommendations and have included in their policies criteria to include a 10% preoperative weight loss requirement. PROCEDURE: Esophago-gastroscopy, laparoscopic repair of incarcerated diaphragmatic hernia, laparoscopic lysis of adhesions, laparoscopic sleeve gastrectomy and laparoscopic gastropexy INDICATIONS: This is a 50 year-old male who was electively scheduled for laparoscopic, possibly open sleeve gastrectomy. The risks and complications of the procedure were discussed with the patient in advance, particularly the possibility of ; pulmonary embolism; staple line leak; bleeding; GERD; cardiac, pulmonary, or renal complications; as well as long-term problems such as insufficient weight loss, vitamin deficiency, strictures, or ulcers. The patient understood all the risks, and was in agreement to proceed with surgery. DESCRIPTION OF PROCEDURE: After informed consent was obtained from the patient, the patient was given preoperative antibiotics, and was transferred to the operating room. After successful induction of general anesthesia, a Hobson catheter and pneumatic compressive devices were placed on both lower extremities. An upper endoscopy was performed next. The oropharynx and esophagus appeared to be within normal limits. There was a diaphragmatic hernia present of moderate size that was not reported at the preoperative upper GI. The stomach was entered. Then after all fluid and air were suctioned and the stomach was fully decompressed, the scope was withdrawn and secured in the mid esophagus. The patient was then prepped and draped in the usual sterile manner, and abdominal access was established at the right upper quadrant with the Brandyn technique. A 12 mm blunt port was inserted, and the abdomen was insufflated with CO2 to a pressure of 15 mmHg. Under direct visualization, additional ports were placed, specifically two 5 mm Versi-step ports to the left upper quadrant, and a 5 mm Versi-Step port to the right upper quadrant. 1% lidocaine plan was used to infiltrate all port sites as well as all fascia defects. Using the EndoClose suture passer device, we placed a #1 Polysorb tie across the falciform ligament in order to retract it up against the abdominal wall and prevent injury of the ligament with our instruments during the procedure. There were adhesions at the upper abdomen from an incarcerated umbilical hernia involving the omentum and the anterior abdominal wall. Those were lysed completely with the ultrasonic device (R-Squaredunderbeat, Olympus). Following that, the patient was placed in a steep reverse Trendelenburg position. An additional 5 mm port was placed to the right flank for the Mediflex retractor that was used to retract the left lobe of the liver. The gastro-esophageal fat pad was opened with the ultrasonic device (Thunderbeat, Olympus) and the anterior esophagus and hiatus were exposed. The angle of His was opened with the ultrasonic device the fundus of the stomach from any diaphragmatic and splenic attachments. I then opened the gastrocolic ligament between the transverse colon and the greater curvature of the stomach with the ultrasonic device to enter the lesser sac and facilitate the ligation of the short gastric vessels. I started at a mid-point along the greater curvature and using the Thunderbeat, all short gastric vessels were divided all the way to the angle of His until the left vlad was completely dissected at its entirety. I then divided the gastro-colic ligament distally to a distance of about 3-4 cm proximal to the esophagus. There were extensive congenital adhesions between the pancreas and posterior gastric wall. Those were lysed completely with the ultrasonic device. Adhesiolysis took approximately 45 min to complete. There was an obvious significant-sized hiatal hernia. I continued dissecting along the hiatus toward the left vlad and the angle of His. I fully mobilized the fat pad that was incarcerated in the hernia. I then continued by dissecting even further into the posterior retro-esophageal space all the way to the angle of His. I continued to mobilize the esophagus into the mediastinum circumferentially. Both vagal nerves were seen and preserved. At that point, I was able to have at least 3 to 5 cm of esophagus into the abdomen. After I completely mobilized the esophagus from both the left and right vlad and I had a good mobilization of the esophagus circumferentially, I closed the hernia defect with three interrupted #0 Surgidac suture using the Endo Stitch device, two of which were placed posterior and one anterior to the esophagus. The stomach was then divided transversely with two Endo SHARONDA-45 purple and five SHARONDA-60 articulating purple loads using the [employer]305 stapler and loads. Every effort was made that the gastric sleeve had a tubular shape and an even caliber throughout. Once the sleeve resection was completed, the staple line of the gastric sleeve was reinforced with Hemoclips. The resected stomach was retrieved without difficulty from the Brandyn port. A gastropexy was then performed in order to prevent postoperative GERD and partial gastric volvulus. Several interrupted 2.0 Surgidac sutures were placed between the sleeve's staple line and the previously divided greater omentum and gastro-colic ligament using the Endo-Stitch device. An upper endoscopy was performed. There was no narrowing at the GE junction. The scope was easily advanced all the way to the pylorus which was clearly visualized. There was no narrowing anywhere and the sleeve's caliber was even throughout. The sleeve's staple line was inspected and there was no evidence of ischemia, bleeding or dehiscence. At that point the gastroscope was withdrawn from the patient?s mouth while we were decompressing the bowel and the stomach from any remaining air. I looked into the lesser sac to see how the sleeve was situating and it was situating well. There was no bleeding from the staple line, spleen, or short gastric vessels. The Mediflex retractor was removed, and the undersurface of the liver was inspected and there was no bleeding. The patient was placed in supine position. I closed the fascial defect of the 12 mm port site with a figure of eight #1 Polysorb suture. Then 100 cc 0.25 % Marcaine plain with 10 mg of Dexamethasone were used to infiltrate the fascial closure as well as all skin incisions. At this point, the abdomen was deflated, all ports were removed under direct vision, and no bleeding was noted from any of the port sites. The skin incisions were irrigated with saline and were closed with 4-0 absorbable monofilament sutures. Steri-Strips and OpSites were used to cover all incisions. The patient was extubated and was transferred in stable condition to the recovery room for further care. I was present and performed all robert parts of the procedure. Ms. Hunter was the airplane first officer. There were no residents to assist with this case. Federico Dominguez MD, PhD, FACS Surgeon: Jerald Dominguez MD Anesthesia: GETA, local and other (TAP block) Employee Relations Consultant: Chante Hunter Estimated blood loss (mL): 10 IV fluids (mL): 2,500 Urine output (mL): 0 (No Hobson to record) Pathology: other (Stomach) Condition: stable Disposition: PACU
[2020-10-09] MEDS: ondansetron HCL 4 MG/2 ML VIAL IVPUSH (20:30)
[2020-10-09] MEDS: 0.9 % Sodium Chloride Flush 3 ML SYRINGE IVFLUSH (21:59)
[2020-10-10 03:09] VITALS: BP 139/83; PULSE 69; RESP 20; TEMP 36.5; O2SAT 100
[2020-10-10] MEDS: ondansetron HCL 4 MG/2 ML VIAL IVPUSH (04:01)
[2020-10-10] MEDS: Lactated Ringers 1,000 ML 125 ML IVCONT (04:02)
[2020-10-10 04:53] LABS: MANUAL DIFF FLAG NO
[2020-10-10 04:57] LABS: Hematocrit 44.9 % (42-52); Hemoglobin 14.8 g/dl (14.0-18.0); Imm Gran Abs Auto 0.02 X10*3/uL (0.00-0.03); Imm Gran Pct Auto 0.2 % (0.0-0.4); Lymphocytes Absolute Auto 0.7 X10*3/uL (1.2-4.9); Lymphocytes Percent Auto 8.5 % (20-40); Mean Corpuscular Hemoglobin 30.4 pg (27.0-33.0); Mean Corpuscular Volume 92.2 fL (80-98); Mean Platelet Volume 10.3 fL (9.4-12.4); Monocytes Absolute Auto 0.4 X10*3/uL (0.1-1.2); Monocytes Percent Auto 4.6 % (2-11); Neutrophils Absolute Auto 7.2 X10*3/uL (2.0-8.3); Neutrophils Percent Auto 86.7 % (45-73); Platelet Count 237 X10*3/uL (160-400); Red Blood Count 4.87 X10*6/uL (4.60-5.80); Red Cell Distribution Width 12.9 % (11.0-16.0); White Blood Count 8.3 X10*3/uL (4.8-10.8)
[2020-10-10 05:22] LABS: Anion Gap 16 (12-20); Blood Urea Nitrogen 11 mg/dL (9-16); Carbon Dioxide 25 mmol/L (22-29); Chloride 102 mmol/L (96-108); Creatinine Clr Calc Pharmacy 166.3; Estimated Glomerular Filt Rate > 60; Glucose Random 148 mg/dL (60-115); Potassium 4.6 mmol/l (3.3-5.1); Sodium 138 mmol/L (135-145)
[2020-10-10 08:00] VITALS: BP 161/78; PULSE 68; RESP 19; TEMP 36.9; O2SAT 100
--- NOTE | 2020-10-10 08:11 | PM.PNGS ---
Subjective Subjective Date of Service: 10/10/20 Interval history: Patient cesar sminimal pain. No nausea. Ambulated and used the spirometry. Physical Exam Vital Signs: Vital Signs: Last Vital Signs Temp 97.7 F 10/10/20 03:09 Pulse 69 10/10/20 03:09 Resp 20 10/10/20 03:09 BP 139/83 10/10/20 03:09 Pulse Ox 100 10/10/20 03:09 Body Mass Index 47.4 GI: Inspection: Yes normal to inspection, Yes incision (dry, clean and intact) and Yes obesity Extrem: Right lower extremity: normal to inspection (no calf tenderness) Left lower extremity: normal to inspection (no calf tenderness) Progress Note: A&P Assessment and plan (1) Morbid obesity: Status: Acute (2) Hypertension: Problem details: taking atenolol, amlodipine & lisinopril Status: Acute (3) Sleep apnea: Problem details: has CPAP-uses daily Status: Acute (4) GERD (gastroesophageal reflux disease): Problem details: omeprazole controls symptoms Status: Acute (5) S/P laparoscopic sleeve gastrectomy: Status: Acute Assessment and Plan: 50 year old Male was admitted 10/09/2020 with morbid obesity and comorbidities. Problem 1: s/p laparoscopic sleeve gastrectomy, gastropexy, diaphragmatic hernia repair, and lysis of adhesions Status: Doing well Plan: Check am labs, If OK, will continue phase 1 bariatric diet and discharge later today. (6) S/P repair of paraesophageal hernia: Status: Acute (7) Diaphragmatic hernia: Status: Acute (8) Umbilical hernia: Status: Acute (9) Depression: Problem details: controlled w/duloxetine Status: Inactive (10) Lower extremity edema: Status: Acute (11) Steatosis, liver: Status: Acute (12) Liver fibrosis: Status: Acute (13) Intra-abdominal adhesions: Status: Acute (14) Congenital intra-abdominal adhesions: Status: Acute (15) Osteoarthritis: Problem details: in knees Status: Inactive Fall Risk Details Current Medications: Current Medications Generic Name Dose Route Start Last Admin Trade Name Freq PRN Reason Stop Dose Admin Amlodipine Besylate 5 mg 10/10/20 09:00 Amlodipine Besylate 5 Mg Tablet PO DAILY BONY Protocol Atenolol 50 mg 10/10/20 09:00 Atenolol 50 Mg Tablet PO DAILY BONY Protocol Famotidine 20 mg 10/09/20 21:00 10/09/20 21:52 Famotidine/Pf 20 Mg/2 Ml Vial IVPUSH 20 mg BID BONY Administration Hydromorphone HCl 0.25 mg 10/09/20 19:07 Hydromorphone Hcl 0.5 Mg/0.5 Ml Syringe IVPUSH Q4H PRN Pain, Moderate (Pain Scale 4-6 Hydroxyzine HCl 50 mg 10/09/20 19:07 Hydroxyzine Hcl 50 Mg Tablet PO BEDTIME PRN Insomnia Lactated Ringer's 1,000 mls @ 125 mls/hr 10/09/20 19:07 10/10/20 04:02 Lr IVCONT 125 mls/hr .Q8H BONY Administration Acetaminophen 1,000 mg in 100 mls @ 16.7 mls/hr 10/09/20 19:07 10/10/20 07:45 Ofirmev IV Not Given .Q6H BONY Lisinopril 20 mg 10/10/20 09:00 Lisinopril 20 Mg Tablet PO DAILY [facility] Protocol Metoclopramide HCl 10 mg 10/09/20 17:52 10/09/20 17:58 Metoclopramide Hcl 10 Mg/2 Ml Vial IVPUSH 10 mg Q6H PRN Administration Nausea Ondansetron HCl 4 mg 10/09/20 19:07 10/10/20 04:01 Ondansetron Hcl 4 Mg/2 Ml Vial IVPUSH 4 mg Q8H BONY Administration Sodium Chloride 3 ml 10/10/20 00:00 10/10/20 07:46 0.9 % Sodium Chloride Flush 3 Ml Syringe IVFLUSH Not Given QSHIFT [facility] Time Spent With Patient Time: Total time spent is greater than 50% in coordination of care (as documented) at patient's floor/unit and/or counseling patient: Time with patient: less than 15 minutes
[2020-10-10] MEDS: amLODIPine Besylate 5 MG TABLET PO (08:39)
[2020-10-10] MEDS: atenoloL 50 MG TABLET PO (08:39)
--- NOTE | 2020-10-10 08:39 | MHC.CM.PN ---
PATIENT IS FULLY INDEPENDENT. DISCHARGED HOME - SELF CARE RN AWARE OF PLAN.
[2020-10-10] MEDS: Famotidine/PF 20 MG/2 ML VIAL IVPUSH (08:40)
--- NOTE | 2020-10-10 09:23 | HO.POSTANES ---
Post Anesthesia Evaluation Post Anesthesia Evaluation Vital Signs: Vital Signs Temp Pulse Resp BP Pulse Ox 10/10/20 08:00 98.5 F 68 19 161/78 H 100 10/10/20 03:09 97.7 F 69 20 139/83 100 10/09/20 23:55 98.4 F 70 18 152/98 H 100 Anesthesia: General Endotracheal-GETA Mental Status: Awake Pain Control: Satisfactory Nausea/Vomiting: None Hydration: Adequate Anesthesia-Related Issues: No Anes. Related Issues
== END 2020-10-10 10:35 | disposition home or self-care (01) | DRG 620 ==
LOC: HO.SSSA 17:08 → HO.S3 17:49
PROVIDERS: Physician Assistant; Admitting Provider Surgery; PCP Internal Medicine; Visit Provider Surgery
PROC: 0DB64Z3 Excision of Stomach, Percutaneous Endoscopic Approach, Vertical (ICD-10-PCS; CPT 43845; principal; 2020-10-09 11:30)
DX: E66.01 Morbid (severe) obesity due to excess calories (principal); K44.0 Diaphragmatic hernia with obstruction, without gangrene; K21.9 Gastro-esophageal reflux disease without esophagitis; F32.9 Major depressive disorder, single episode, unspecified; K66.0 Peritoneal adhesions (postprocedural) (postinfection); G47.30 Sleep apnea, unspecified; Z68.43 Body mass index [BMI] 50.0-59.9, adult; Z20.822 Contact with and (suspected) exposure to COVID-19; Z79.899 Other long term (current) drug therapy
CPT/HCPCS: 36415; 80048; 80053; 80061; 83036; 83525; 84443; 85014; 85018; 85025; 85610; 85730; 86140; 86850; 86900; 86901; 87635; 88307; 88342; 93005; 99024; A4649; J0131; J0690; J1100; J1170; J2250; J2370; J2405; J2765; J3010

== ENCOUNTER → 2020-10-17 07:20 | Outpatient (BNVA) | payer OTHER, SELFPAY | PROVIDERS: PCP Internal Medicine; Visit Provider Surgery | DX: E66.01 Morbid (severe) obesity due to excess calories (principal); Z98.84 Bariatric surgery status | CPT/HCPCS: 99212 ==

== ENCOUNTER 2020-10-22 14:51 | Outpatient (REF) | payer OTHER, SELFPAY ==
--- NOTE | ~2020-10-22 | US_ITS ---
EXAMINATION: US VENOUS ULTRASOUND WITH DOPPLER LOWER EXTREMITY, BILATERAL CLINICAL INFORMATION: Pain lower leg. COMPARISON: None TECHNIQUE: Ultrasound of the deep veins is performed from the hip to the calf with compression sonography and color and pulse Doppler assessment. Spectral analysis with color-flow imaging is performed. FINDINGS: RIGHT: There is normal venous compression and respiratory variation and augmented flow. The visualized common femoral vein, superficial femoral vein, profunda femoral vein, popliteal vein, and the trifurcation region shows no evidence of deep venous thrombosis. There is no significant popliteal fossa cyst. LEFT: There is normal venous compression and respiratory variation and augmented flow. The visualized common femoral vein, superficial femoral vein, profunda femoral vein, popliteal vein, and the trifurcation region shows no evidence of deep venous thrombosis. There is no significant popliteal fossa cyst. If the patient's symptoms persist, followup ultrasound in 5 days 7 days might be of value to exclude proximal propagation from a non-visualized calf vein. US/US venous duplex LE BI IMPRESSION: No DVT demonstrated in the bilateral lower extremity.
== END 2020-10-22 14:52 | disposition home or self-care (01) ==
LOC: HO.US 14:51
PROVIDERS: PCP Internal Medicine; Visit Provider Surgery
DX: M79.669 Pain in unspecified lower leg (principal); Z98.84 Bariatric surgery status
CPT/HCPCS: 93970

== ENCOUNTER → 2020-11-12 08:09 | Outpatient (BNVA) | payer OTHER, SELFPAY | PROVIDERS: PCP Internal Medicine; Visit Provider Surgery | DX: E66.01 Morbid (severe) obesity due to excess calories (principal); Z68.41 Body mass index [BMI] 40.0-44.9, adult; I10 Essential (primary) hypertension; Z71.3 Dietary counseling and surveillance | CPT/HCPCS: 99212 ==

== ENCOUNTER → 2020-12-10 08:13 | Outpatient (BNVA) | payer OTHER, SELFPAY | PROVIDERS: PCP Internal Medicine; Visit Provider Surgery ==

== ENCOUNTER → 2020-12-15 10:11 | Outpatient (BNVA) | payer OTHER, SELFPAY | PROVIDERS: PCP Internal Medicine; Visit Provider Internal Medicine Cardiovascular Disease | DX: I10 Essential (primary) hypertension (principal) | CPT/HCPCS: 93005; 99212 ==

== ENCOUNTER 2024-06-08 10:36 | Emergency (ER) | payer OTHER, SELFPAY ==
--- NOTE | ~2024-06-08 | XR_ITS ---
EXAMINATION: XR FOOT, LEFT CLINICAL INFORMATION: Pain COMPARISON: October 27, 2012 TECHNIQUE: AP, lateral, and oblique views of the left foot. FINDINGS: There is no interval change in appearance of surgical resection of distal fifth metatarsal. The rest of dose are unremarkable no fracture or osseous destruction seen. XR/XR foot LT min 3V IMPRESSION: No interval change. Status post resection of the distal fifth metatarsal Electronically signed by: Liborio Stallings MD 06/08/2024 02:51 PM EDT
[2024-06-08 10:41] VITALS: BP 128/72; PULSE 65; RESP 20; TEMP 36.7; O2SAT 97; BMI 43.9
--- NOTE | 2024-06-08 12:40 | ED.LOWEXIN ---
HPI - Extremity Injury (Lower) General Chief Complaint: Extremity Injury, Lower Stated Complaint: toe inj Time Seen by Provider: 06/08/24 12:39 Source: patient Mode of arrival: ambulatory Limitations: no limitations History of Present Illness HPI Narrative: Patient is a 54-year-old male presents emergency department for evaluation. Reports a couple of days ago he stubbed his left great toe on the sofa. He noticed that part of the distal tip of the nail was coming up from the surface so he used toenail clippers to cut this. Skin was ultimately exposed beneath it and he had some blood from this area. He saw a blood blister develop and so he popped this. He continues to have pain to this area, some bloody and pus-like discharge as well. He reports he is not a diabetic. Pain increases with weight-bearing. Last tetanus vaccination 2021 Related Data Home Medications ?Medication ?Instructions ?Recorded ?Confirmed atenolol 50 mg tablet 50 mg PO DAILY 06/10/20 10/03/20 cetirizine 10 mg tablet 10 mg PO DAILY 06/10/20 10/03/20 duloxetine 60 mg capsule,delayed 60 mg PO BID 06/10/20 10/03/20 release omeprazole 20 mg capsule,delayed 20 mg PO BEDTIME 06/10/20 10/03/20 release oxycodone-acetaminophen 5 mg-325 1 tab PO TID PRN Pain 06/10/20 10/03/20 mg tablet hydroxyzine pamoate 50 mg capsule 50 mg PO BEDTIME PRN Insomnia 10/03/20 10/03/20 (Vistaril) Previous Rx's ?Medication ?Instructions ?Recorded lidocaine 5 % topical patch 1 patch topical DAILY PRN pain #30 06/21/20 (Lidoderm) ea ondansetron HCl 4 mg tablet 4 mg PO Q6H PRN nausea and 10/01/20 (Zofran) vomiting #30 tabs pantoprazole 40 mg tablet,delayed 40 mg PO DAILY #30 tabs 10/01/20 release fondaparinux 2.5 mg/0.5 mL 2.5 mg (0.5 mL) subcut DAILY #5 mL 10/17/20 subcutaneous solution syringe (Arixtra) sucralfate 100 mg/mL oral 10 ml PO BID #600 mL 12/15/20 suspension amlodipine 5 mg tablet 5 mg PO QAM #30 tabs 10/14/21 cephalexin 500 mg capsule 500 mg PO QID #28 caps 06/08/24 Allergies Allergy/AdvReac Type Severity Reaction Status Date / Time No Known Allergies Allergy Verified 06/08/24 10:44 Review of Systems Review of Systems: Yes all other systems are reviewed and are negative [facility] Past Medical History Attestation statement: The following information was validated with the patient. Source: old records reviewed Medical History Liver fibrosis Steatosis, liver Lower extremity edema Hx of renal calculi Carpal tunnel syndrome Osteoarthritis GERD (gastroesophageal reflux disease) Hypertension Depression Migraine Sleep apnea Surgical History History of sleeve gastrectomy History of varicose vein ligation Morbid obesity History of bunionectomy of left great toe Family History Family History Father Arthritis Mother No problems noted. Brother No problems noted. Sister No problems noted. Sister No problems noted. Sister No problems noted. Sister No problems noted. Sister No problems noted. Son No problems noted. Son No problems noted. Son No problems noted. Son No problems noted. Social History Social History (Updated 10/03/20 @ 12:21 by Ary Blankenship RN) Household Members: Family Are you a primary intensive care anaesthetist to a significant other at home: No Do you presently have visiting nurse or other home services: No Alcohol intake: current Alcohol intake frequency: holidays/special occasions only Comment: no longer nauseous Cigarettes Per Day: 1 Years Smoked: <1 Advance Directives: No Advance Directives Information Provided: Yes Do you have a plan to hurt others: No Plan service: No Current occupational status: disabled Physical Exam Vital Signs: Vital Signs: Last Vital Signs Temp 98.0 F 06/08/24 10:41 Pulse 65 06/08/24 10:41 Resp 20 06/08/24 10:41 BP 128/72 06/08/24 10:41 Pulse Ox 97 06/08/24 10:41 O2 Del Method Room Air 06/08/24 10:41 BMI result Body Mass Index 43.9 Appearance: Alert.?Oriented to person, place and time. No acute distress.?Normal affect. CVS: Heart sounds normal. Normal heart rate and rhythm.? Pulses normal.?? Respiratory: No respiratory distress.? Lung sounds clear to auscultation bilaterally?? Skin: Skin warm and dry.? Normal skin color.? Extremities: No lower extremity edema.? Left great toe without obvious deformity, mild erythema but no warmth. Toe was held in full extension, has some increased pain with flexion but is able to flex the digit. No subungual hematoma is present. The distal nail bed is scabbed with a scant amount of serosanguineous discharge noted. Neuro: Moves all extremities spontaneously. Sensation intact bilaterally. Ambulates with normal steady gait. Medications Administered Discontinued Medications Generic Name Dose Route Start Last Admin Trade Name Freq PRN Reason Stop Dose Admin Cephalexin HCl 500 mg 06/08/24 12:49 06/08/24 13:08 Cephalexin 500 Mg Capsule PO 06/08/24 12:50 500 mg ONCE ONE Administration Medical Decision Making Medical Decision Making [facility] Narrative: Patient is a 54-year-old male with past medical history of osteoarthritis, carpal tunnel syndrome, renal calculi, liver steatosis/fibrosis, GERD, hypertension, migraines, ARACELY presenting to emergency department for evaluation of injury to the left great toe as per HPI. Extremity is neurovascularly intact distally. No subungual hematoma is present. XR was obtained and is without evidence of acute fracture to the distal tuft. Given his reported pus-like discharge in his current presentation we discussed the use of antibiotics, outpatient follow-up with PCP/Podiatry as necessary. Provided with a postop shoe to take pain off of the great toe when ambulating. Differential Diagnosis Differential Diagnoses: The differential diagnosis associated with the presentation includes (See narrative above) Independent Interpretation I performed an independent interpretation of an: Plain X-Ray (See narrative above) Radiology Impression Discussion of test interpretation with radiology: I have reviewed the radiologist's reading. Radiologist Impression: XR/XR foot LT min 3V IMPRESSION: No interval change. Status post resection of the distal fifth metatarsal Independent Historian Clinical information obtained from an independent historian. History obtained from or confirmed by: Spouse External Record Review External record reviewed: Outpatient record Prescription Management I considered prescription management with: Pain Medication (Tylenol) and Antibiotic Discharge Plan Discharge Clinical Impression: Contusion of toe, right, Nail avulsion of toe Patient Disposition: Home, Self-Care Instructions: Nail Avulsion (ED) Prescriptions: New cephalexin 500 mg capsule 500 mg PO QID Qty: 28 0RF No Action sucralfate 100 mg/mL suspension 10 ml PO BID Qty: 600 0RF amlodipine 5 mg tablet 5 mg PO QAM Qty: 30 2RF Rx Instructions: please call and reschedule last appointment lidocaine [Lidoderm] 5 % adhesive patch,medicated 1 patch topical DAILY MDD remove after 12 hours PRN (Reason: pain) Qty: 30 0RF Rx Instructions: leave on most painful area for up to 12 hrs hydroxyzine pamoate [Vistaril] 50 mg Capsule 50 mg PO BEDTIME PRN (Reason: Insomnia) pantoprazole 40 mg tablet,delayed release (DR/EC) 40 mg PO DAILY Qty: 30 2RF ondansetron HCl [Zofran] 4 mg tablet 4 mg PO Q6H PRN (Reason: nausea and vomiting) Qty: 30 0RF oxycodone-acetaminophen 5-325 mg tablet 1 tab PO TID PRN (Reason: Pain) atenolol 50 mg tablet 50 mg PO DAILY omeprazole 20 mg capsule,delayed release(DR/EC) 20 mg PO BEDTIME cetirizine 10 mg tablet 10 mg PO DAILY duloxetine 60 mg capsule,delayed release(DR/EC) 60 mg PO BID fondaparinux [Arixtra] 2.5 mg/0.5 mL syringe 2.5 mg subcut DAILY Qty: 5 0RF Referrals: Yumiko Prakash MD [Primary Care Provider] - Print Language: Croatian
[2024-06-08] MEDS: cephALEXin 500 MG CAPSULE PO (13:08)
[2024-06-08 15:21] VITALS: BP 128/72; PULSE 65; RESP 20; TEMP 36.7; O2SAT 97
== END 2024-06-08 15:22 | disposition home or self-care (01) ==
PROVIDERS: Emergency Provider Student in an Organized Health Care Education/Training Program; PCP Internal Medicine
DX: S91.202A Unspecified open wound of left great toe with damage to nail, initial encounter (principal); S90.211A Contusion of right great toe with damage to nail, initial encounter; W22.03XA Walked into furniture, initial encounter; Y93.9 Activity, unspecified; Y92.039 Unspecified place in apartment as the place of occurrence of the external cause; Y99.9 Unspecified external cause status
CPT/HCPCS: 73630; 99283

== ENCOUNTER 2024-09-20 11:56 | Emergency (ER) | payer OTHER, SELFPAY ==
--- NOTE | ~2024-09-20 | XR_ITS ---
EXAMINATION: XR KNEE 4 OR MORE VIEWS RIGHT HISTORY: pain x 3 wks COMPARISON: There are no prior studies available for comparison. FINDINGS: Four views of the right knee are submitted. Osseous mineralization is normal. There is no fracture or dislocation. There is severe osteoarthritis of the medial and patellofemoral compartments, with joint space narrowing and osteophyte formation. More moderate changes are noted involving the lateral compartment. The soft tissues are unremarkable. There is no joint effusion. XR/XR knee RT 4V IMPRESSION: Osteoarthritis of the right knee as described. Electronically signed by: Joseph Ying MD 09/20/2024 01:03 PM RONEN
--- NOTE | ~2024-09-20 | XR_ITS ---
EXAMINATION: XR ELBOW, LEFT CLINICAL INFORMATION: severe pain since yesterday COMPARISON: None available. TECHNIQUE: AP, lateral, and oblique views of the left elbow. FINDINGS: No acute fracture, dislocation, or suspicious focal bony abnormality. There is a healed distal diaphyseal fracture of the humerus. Mild to moderate osteoarthrosis of the radiocapitellar and ulnar trochlear joints present. No evidence of joint effusion is seen. There are medial epicondylar and lateral epicondylar enthesophytes. No soft tissue abnormalities. XR/XR elbow LT 2V IMPRESSION: 1. No acute findings left elbow. No evidence of joint effusion. 2. Healed fracture distal humeral diaphysis. 3. 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 4. Enthesopathy of the medial and lateral epicondyles. Electronically signed by: Martinez Anaya MD 09/20/2024 01:08 PM RONEN
[2024-09-20 12:15] VITALS: BP 132/78; PULSE 63; RESP 18; TEMP 36.8; O2SAT 97; BMI 44.7
--- NOTE | 2024-09-20 12:15 | ED_ITS ---
HPI - General Adult General Chief complaint: Extremity Injury, Lower Stated complaint: Pain L elbow & R knee Time Seen by Provider: 09/20/24 16:36 Source: patient and RN notes reviewed Mode of arrival: ambulatory Limitations: no limitations History of Present Illness ED Provider: Bertha Toribio PA-C HPI narrative: This is a 54-year-old male, with a history of osteoarthritis, who presents emergency department with concerns for right knee pain, and left elbow pain. Patient reports he has had right knee pain ongoing for the last 3-4 weeks. Patient states that he has a history of arthritis, and states that the pain has only worsened. He states that the pain worsens with weight-bearing, and with range of motion. Denies any new trauma, injury, heavy lifting or falls. Patient does report over the last 3-4 days, he has had increased pain in his left elbow. Denies any injury, trauma, or heavy lifting. 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 He has been taking ibuprofen and consistently which has not been providing him with much relief. He denies seeing a orthopedic provider for any of his symptoms recently. He denies any SOB or chest pain. He is right-hand dominant. He does report that as a young adult, he fractured his left arm. No other complaints or concerns at this time. MD complaint: Right knee pain, left elbow pain Location: upper extremity Radiation: non-radiation and extremity Severity: moderate Quality: burning and aching Pain Consistency: constant Relieving factors: rest Exacerbating factors: movement Associated symptoms: denies other symptoms Treatments prior to arrival: none Related Data Home Medications ?Medication ?Instructions ?Recorded ?Confirmed atenolol 50 mg tablet 50 mg PO DAILY 06/10/20 10/03/20 cetirizine 10 mg tablet 10 mg PO DAILY 06/10/20 10/03/20 duloxetine 60 mg capsule,delayed 60 mg PO BID 06/10/20 10/03/20 release omeprazole 20 mg capsule,delayed 20 mg PO BEDTIME 06/10/20 10/03/20 release oxycodone-acetaminophen 5 mg-325 1 tab PO TID PRN Pain 06/10/20 10/03/20 mg tablet hydroxyzine pamoate 50 mg capsule 50 mg PO BEDTIME PRN Insomnia 10/03/20 10/03/20 (Vistaril) Previous Rx's ?Medication ?Instructions ?Recorded lidocaine 5 % topical patch 1 patch topical DAILY PRN pain #30 06/21/20 (Lidoderm) ea ondansetron HCl 4 mg tablet 4 mg PO Q6H PRN nausea and 10/01/20 (Zofran) vomiting #30 tabs pantoprazole 40 mg tablet,delayed 40 mg PO DAILY #30 tabs 10/01/20 release fondaparinux 2.5 mg/0.5 mL 2.5 mg (0.5 mL) subcut DAILY #5 mL 10/17/20 subcutaneous solution syringe (Arixtra) sucralfate 100 mg/mL oral 10 ml PO BID #600 mL 12/15/20 suspension amlodipine 5 mg tablet 5 mg PO QAM #30 tabs 10/14/21 cephalexin 500 mg capsule 500 mg PO QID #28 caps 06/08/24 acetaminophen 500 mg tablet 500 - 1,000 mg (1 - 2 x 500 mg) PO 09/20/24 (Tylenol Extra Strength) Q6H PRN pain #30 tabs ibuprofen 600 mg tablet 600 mg PO Q6H PRN pain #30 tabs 09/20/24 Allergies Allergy/AdvReac Type Severity Reaction Status Date / Time No Known Allergies Allergy Verified 09/20/24 12:18 Review of Systems 2 Review of Systems: Yes all other systems are reviewed and are negative Constitutional: Constitutional: Reports as per [facility] Past Medical History Medical History Liver fibrosis Steatosis, liver Lower extremity edema Hx of renal calculi Carpal tunnel syndrome Osteoarthritis GERD (gastroesophageal reflux disease) Hypertension Depression Migraine Sleep apnea Surgical History History of sleeve gastrectomy History of varicose vein ligation Morbid obesity History of bunionectomy of left great toe Family History Family History Father Arthritis Mother No problems noted. Brother No problems noted. Sister No problems noted. Sister No problems noted. Sister No problems noted. Sister No problems noted. Sister No problems noted. Son No problems noted. Son No problems noted. Son No problems noted. Son No problems noted. Social History Social History (Updated 10/03/20 @ 12:21 by Ary Blankenship RN) Household Members: Family Are you a primary childcare director to a significant other at home: No Do you presently have visiting nurse or other home services: No Alcohol intake: current Alcohol intake frequency: holidays/special occasions only Comment: no longer nauseous Cigarettes Per Day: 1 Years Smoked: <1 Advance Directives: No Advance Directives Information Provided: Yes service: No Current occupational status: disabled Physical Exam ED Vital Signs: Vital Signs - 24 hr 09/20/24 12:15 09/20/24 17:45 09/20/24 17:56 Temperature 98.2 F 98.2 F 98.2 F Pulse Rate 63 54 54 Respiratory Rate 18 16 16 Blood Pressure 132/78 117/70 117/70 Pulse Oximetry 97 98 98 Oxygen Delivery Method Room Air Room Air Room Air BMI result Body Mass Index 44.7 Const General: cooperative, comfortable and no acute distress Orientation/consciousness: patient oriented x3 Limitations: no limitations HENMT Head: Yes normal to inspection, Yes normocephalic and Yes atraumatic Ears: hearing grossly normal bilaterally General nose exam: Normal external nose present Face and sinus: Yes normal facial exam Mouth: Normal oral and palatal mucosa present, oropharynx normal and moist mucous membranes Throat: Yes posterior oropharynx normal Eyes General: appearance normal, both eyes and all related structures Eyelids: Yes eyelids normal Conjunctivae: conjunctivae normal Sclerae: sclerae normal Pupils: Equal, round and reactive pupils present EOM: EOMs intact bilaterally Neck Neck: Yes normal visual inspection, Yes full ROM and Yes no lymphadenopathy Lymphatic: no lymphadenopathy noted Chest Chest palpation & inspection: normal inspection of the chest Resp Effort & Inspection: normal respiratory effort and able to speak in complete sentences Auscultation: clear to auscultation bilaterally, no crackles, no rales, no rhonchi and no wheezes Cardio Rate: regular rate Rhythm: regular rhythm Heart sounds: S1 normal heart sound present and S2 normal heart sound present GI Inspection: Yes normal to inspection Skin General skin exam: no rashes or lesions noted Trauma: no lacerations or abrasions Wounds: no wounds Neuro General: patient oriented x3 and moves all extremities Cranial nerves: Yes Equal, round and reactive pupils present Extrem Other: Left elbow, with full range of motion, no overlying erythema or warmth. No bony abnormalities. No bony step-off. He does have tenderness palpation along any medial and lateral epicondyle. Right knee, with no obvious bony deformity or swelling. No erythema or warmth. Crepitus noted with range of motion, full range of motion. He does have tenderness palpation along the medial and lateral joint line, positive patellar grind test, pain with varus and valgus strain, negative anterior-posterior drawer test. General: Yes normal to inspection Right upper extremity: normal to inspection Left upper extremity: normal to inspection Right lower extremity: normal to inspection Left lower extremity: normal to inspection Course Course Course Narrative: This is a rapid medical exam performed by Luc Fink NP: Additional HPI, ROS, PE not included below will be deferred to primary provider. Patient is a 54-year-old male presenting with complaint of left elbow and right knee pain. Knee pain x 3 weeks, elbow pain since yesterday. Denies fall or other trauma. Denies fevers, chills. States feels different from his OA. Plan: imaging, labs Medical Decision Making Medical Decision Making [facility] Narrative: This is a 54-year-old male who presents emergency department with concerns for left elbow pain, and right knee pain. No trauma or injury. On arrival, vital signs within normal limits. He is speaking full sentences under no acute distress. Left elbow, with no bony deformity or swelling. He does have full range of motion of both joints. Right knee x-ray was performed revealing severe osteoarthritis. Left elbow revealing a healed fracture of the distal humeral diaphysis, [id number] degenerative arthritis of the elbow joint, as well as enthesopathy of the medial and lateral epicondyles. I discussed overall workup with patient. He reports that he did fracture his arm in the past, this is likely the finding that they were seeing on x-ray. He has full range of motion, he does have tenderness palpation along the medial and lateral epicondyle. Strong radial pulse. Stressed the importance of following up with non destructive evaluation specialist. Discharged on ibuprofen and Tylenol. Given strict return precautions. He understands and agrees with plan. Patient stable for discharge Differential Diagnosis Differential Diagnoses: The differential diagnosis associated with the presentation includes Epicondylitis, fracture, contusion, sprain, strain, osteoarthritis, internal ligamentous derangement of the knee Lab Data [facility] Lab Attestation statement: I reviewed the patient's lab results. No leukocytosis, stable H&H, no evidence of BRENDAN, slight elevation in CRP, ESR within normal limits. 09/20/24 14:34 09/20/24 14:34 Labs: Lab Results 09/20/24 Range/Units 14:34 WBC 7.6 (4.8-10.8) X10*3/uL RBC 5.02 (4.60-5.80) X10*6/uL Hgb 15.6 (14.0-18.0) g/dl Hct 45.7 (42.0-52.0) % MCV 91.0 (80.0-98.0) fL MCH 31.1 (27.0-33.0) pg MCHC 34.1 (31.0-36.0) g/dl RDW 13.3 (11.0-16.0) % Plt Count 228 (160-400) X10*3/uL MPV 9.7 (9.4-12.4) fL Immature Gran % (Auto) 0.3 (0.0-0.4) % Neut % (Auto) 60.1 (45-73) % Lymph % (Auto) 28.1 (20-40) % [place] % (Auto) 7.9 (2-11) % Eos % (Auto) 3.3 (0-4) % Baso % (Auto) 0.3 (0-2) % Lymph # (Auto) 2.2 (1.2-4.9) X10*3/uL [place] # (Auto) 0.6 (0.1-1.2) X10*3/uL Eos # (Auto) 0.3 (0.0-0.4) X10*3/uL Baso # (Auto) 0.0 (0.0-0.2) X10*3/uL Abs Immat Gran (auto) 0.02 (0.00-0.03) X10*3/uL Absolute Neuts (auto) 4.6 (2.0-8.3) x10*3/uL Absolute Nucleated RBC 0.000 (0.0-0.012) X10*3/uL Nucleated RBC % (auto) 0.0 (0.0-0.2) /100WBC ESR 7 (0-15) MM/HR Sodium 144 (135-145) mmol/L Potassium 3.7 (3.3-5.1) mmol/L Chloride 109 H (96-108) mmol/L Carbon Dioxide 31 H (22-29) mmol/L Anion Gap 8 L (12-20) BUN 12 (9-16) mg/dL Creatinine 0.82 (0.5-1.4) mg/dL Estim Creat Clear Calc 140.6 Estimated GFR > 60 Random Glucose 114 (60-115) mg/dL Calcium 9.6 D (8.4-10.2) mg/dL Total Bilirubin 0.4 (0.0-1.0) mg/dL AST 25 (5-37) U/L ALT 18 (0-40) U/L Alkaline Phosphatase 73 (39-117) U/L C-Reactive Protein 0.59 H (< or = 0.50) mg/dL Total Protein 7.3 (6.5-8.0) g/dL Albumin 4.0 (3.5-5.0) g/dL Radiology Impression Discussion of test interpretation with radiology: I have reviewed the radiologist's reading. Radiologist Impression: [address] [address] XRay Report Signed Patient: Surinder Mckinney MR#: [id number] : 1970 Acct:[id number] Age/Sex: 54 / M ADM Date: 09/20/24 Loc: .ED Attending Dr: Ordering Physician: Tonya Fink NP Date of Service: 09/20/24 Procedure(s): XR knee RT 4V Accession Number(s): [id number] cc: Yumiko Prakash MD; Tonya Fink NP~ EXAMINATION: XR KNEE 4 OR MORE VIEWS RIGHT HISTORY: pain x 3 wks COMPARISON: There are no prior studies available for comparison. FINDINGS: Four views of the right knee are submitted. Osseous mineralization is normal. There is no fracture or dislocation. There is severe osteoarthritis of the medial and patellofemoral compartments, with joint space narrowing and osteophyte formation. More moderate changes are noted involving the lateral compartment. The soft tissues are unremarkable. There is no joint effusion. XR/XR knee RT 4V IMPRESSION: Osteoarthritis of the right knee as described. Electronically signed by: Joseph Ying MD 09/20/2024 01:03 PM EST RP Dictated By: Joseph Ying MD XR/XR elbow LT 2V IMPRESSION: 1. No acute findings left elbow. No evidence of joint effusion. 2. Healed fracture distal humeral diaphysis. 3. 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 4. Enthesopathy of the medial and lateral epicondyles. Electronically signed by: Martinez Anaya MD 09/20/2024 01:08 PM EST RP Dictated By: Martinez Anaya MD Independent Historian Clinical information obtained from an independent historian. History obtained from or confirmed by: Spouse Discharge Plan Discharge Clinical Impression: Elbow pain, left, Knee pain, right Patient Disposition: Home, Self-Care Instructions: Knee Pain (ED), Arthralgia (ED) Additional Instructions: You were seen in the emergency department due to left elbow pain, and right knee pain. Your x-ray of your left elbow shows an old fracture of your distal humeral diaphysis, you also have [id number] degenerative arthritis, as well as inflammation seen. Your x-ray of your right knee shows severe osteoarthritis in the right knee. You need to follow-up with the non destructive evaluation specialist, call tomorrow to make an appointment. criminal research specialist can help treat your symptoms, refer to physical therapy, and help manage pain and symptoms. Alternate between ibuprofen and or Tylenol as needed for pain and symptoms. Rest, ice, and elevate as this can also help with your symptoms. If any new or worsening symptoms occur including but not limited to inability to flex or extend at your joints, increased redness, swelling, please seek emergent care. If you develop chest pain or shortness of breath, please call 911. Follow-up with your primary care physician. Prescriptions: New ibuprofen 600 mg tablet 600 mg PO Q6H PRN (Reason: pain) Qty: 30 0RF acetaminophen [Tylenol Extra Strength] 500 mg tablet 500 - 1,000 mg PO Q6H PRN (Reason: pain) Qty: 30 0RF No Action sucralfate 100 mg/mL suspension 10 ml PO BID Qty: 600 0RF amlodipine 5 mg tablet 5 mg PO QAM Qty: 30 2RF Rx Instructions: please call and reschedule last appointment lidocaine [Lidoderm] 5 % adhesive patch,medicated 1 patch topical DAILY MDD remove after 12 hours PRN (Reason: pain) Qty: 30 0RF Rx Instructions: leave on most painful area for up to 12 hrs hydroxyzine pamoate [Vistaril] 50 mg Capsule 50 mg PO BEDTIME PRN (Reason: Insomnia) cephalexin 500 mg capsule 500 mg PO QID Qty: 28 0RF pantoprazole 40 mg tablet,delayed release (DR/EC) 40 mg PO DAILY Qty: 30 2RF ondansetron HCl [Zofran] 4 mg tablet 4 mg PO Q6H PRN (Reason: nausea and vomiting) Qty: 30 0RF oxycodone-acetaminophen 5-325 mg tablet 1 tab PO TID PRN (Reason: Pain) atenolol 50 mg tablet 50 mg PO DAILY omeprazole 20 mg capsule,delayed release(DR/EC) 20 mg PO BEDTIME cetirizine 10 mg tablet 10 mg PO DAILY duloxetine 60 mg capsule,delayed release(DR/EC) 60 mg PO BID fondaparinux [Arixtra] 2.5 mg/0.5 mL syringe 2.5 mg subcut DAILY Qty: 5 0RF Referrals: [facility] [Provider Group] Interventions: ED Discharge Assessment Last Done: 09/20/24 17:56 Discharge Date/Time: 09/20/24 17:56 Print Language: [place]ese
[2024-09-20 14:39] LABS: MANUAL DIFF FLAG NO
[2024-09-20 14:51] LABS: Basophils Percent Auto 0.3 % (0-2); Eosinophils Absolute Auto 0.3 X10*3/uL (0.0-0.4); Eosinophils Percent Auto 3.3 % (0-4); Hematocrit 45.7 % (42.0-52.0); Hemoglobin 15.6 g/dl (14.0-18.0); Imm Gran Abs Auto 0.02 X10*3/uL (0.00-0.03); Imm Gran Pct Auto 0.3 % (0.0-0.4); Lymphocytes Absolute Auto 2.2 X10*3/uL (1.2-4.9); Lymphocytes Percent Auto 28.1 % (20-40); Mean Corpuscular HGB Conc 34.1 g/dl (31.0-36.0); Mean Corpuscular Hemoglobin 31.1 pg (27.0-33.0); Mean Platelet Volume 9.7 fL (9.4-12.4); Monocytes Absolute Auto 0.6 X10*3/uL (0.1-1.2); Monocytes Percent Auto 7.9 % (2-11); Neutrophils Absolute Auto 4.6 x10*3/uL (2.0-8.3); Neutrophils Percent Auto 60.1 % (45-73); Platelet Count 228 X10*3/uL (160-400); Red Blood Count 5.02 X10*6/uL (4.60-5.80); Red Cell Distribution Width 13.3 % (11.0-16.0); White Blood Count 7.6 X10*3/uL (4.8-10.8)
[2024-09-20 14:54] LABS: Alanine Aminotransferase 18 U/L (0-40); Alkaline Phosphatase 73 U/L (39-117); Anion Gap 8 (12-20); Aspartate Amino Transferase 25 U/L (5-37); Bilirubin Total 0.4 mg/dL (0.0-1.0); Blood Urea Nitrogen 12 mg/dL (9-16); C Reactive Protein 0.59 mg/dL (< or = 0.50); Calcium 9.6 mg/dL (8.4-10.2); Carbon Dioxide 31 mmol/L (22-29); Chloride 109 mmol/L (96-108); Creatinine Clr Calc Pharmacy 140.6; Estimated Glomerular Filt Rate > 60; Glucose Random 114 mg/dL (60-115); Potassium 3.7 mmol/L (3.3-5.1); Sodium 144 mmol/L (135-145); Total Protein 7.3 g/dL (6.5-8.0)
[2024-09-20 15:43] LABS: Erythrocyte Sedimentation Rate 7 MM/HR (0-15)
[2024-09-20 17:45] VITALS: BP 117/70; PULSE 54; RESP 16; TEMP 36.8; O2SAT 98
[2024-09-20 17:56] VITALS: BP 117/70; PULSE 54; RESP 16; TEMP 36.8; O2SAT 98
== END 2024-09-20 17:56 | disposition home or self-care (01) ==
PROVIDERS: Registered Nurse Emergency; Emergency Provider Emergency Medicine; PCP Internal Medicine
DX: M25.562 Pain in left knee (principal); M25.561 Pain in right knee; I10 Essential (primary) hypertension; Z98.84 Bariatric surgery status; Z79.899 Other long term (current) drug therapy
CPT/HCPCS: 36415; 73070; 73564; 80053; 85025; 85652; 86140; 99283

== ENCOUNTER → 2024-09-20 12:17 | Outpatient (BNV) | payer OTHER, SELFPAY | PROVIDERS: PCP Internal Medicine; Visit Provider Radiology Diagnostic Radiology | DX: M17.11 Unilateral primary osteoarthritis, right knee (principal); M19.022 Primary osteoarthritis, left elbow; M77.8 Other enthesopathies, not elsewhere classified; S42.492 Other displaced fracture of lower end of left humerus | CPT/HCPCS: 73070; 73564 ==

== ENCOUNTER 2024-10-22 08:10 | Outpatient (REF) | payer OTHER, SELFPAY ==
--- NOTE | ~2024-10-22 | XR_ITS ---
EXAMINATION: XR KNEE 3 VIEWS RIGHT HISTORY: M17.11 - Unilateral primary osteoarthritis, right knee COMPARISON: Comparison is made with the prior examination dated 09/20/2024. FINDINGS: Standing AP views of the bilateral knees and additional lateral and sunrise patellar views of the right knee are submitted. Osseous mineralization is normal. There is no fracture or dislocation. There is severe osteoarthritis of the medial and patellofemoral compartments, and moderate osteoarthritis of the lateral compartment, with joint space narrowing and osteophyte formation. There is severe osteoarthritis of the medial compartment of the left knee. The soft tissues are unremarkable. There is no joint effusion. XR/XR knee RT 3V IMPRESSION: Osteoarthritis of the right knee as described. Electronically signed by: Joseph Ying MD 10/22/2024 02:20 PM RONEN
--- OUTSIDE RECORDS SUMMARY | 2024-10-22 08:23 | XMS_ITS | Continuity of Care Document ---
Author Organization [facility] Address [address] [address],[address] [place] [address] Phone Care Team Providers Care Corporate Real Estate Manager Name Role Phone Z-Converted, Provider Unavailable Unavailabl e Medications Medication Instructions Dosage Effective Dates (start - stop) Status Comments Lasix 20 mg Tab 2 Every Day - Active M-4 [employer]EE [employer] use daily prn edema as directed - Active Lasix 20 mg Tab 1 Every Day - Active ibuprofen 800 mg Tab 1 T.I.D prn pain - Active atenolol 50 mg Tab 1 tab PO daily - Ac tive lisinopril 10 mg Tab 1 tab PO daily - Active Advance Directives Directive Yes / No Effective Date File Name No Information Encounters Encounter Description Practice Location Reason(s) For Visit Diagnoses Date Provider Providers Copied on Encounter [facility], [address] [place] [address],[facility] [address], [place], [place], [id number], tel:[phone] Converted Locations No Information 8 Z-Convert ed Provider. . [facility], [address] [address],[address], [place], [place], [id number], [place] tel:[phone] [facility] Pain in joint involving lower legBackache, unspecifiedEdem aCough 8 Z-Convert ed Provider. . [facility], [address] [place] [address],[address], [place], [place], [id number], tel:[phone] Converted Locations No Information 8 Z-Convert ed Provider. . [facility], [address] [facility] [address], [place], [place], [id number], [place] tel:[phone] [facility] Unspecified essential hypertension Jun- 0 8 Z-Convert ed Provider. . [facility], [address] [facility] [address] [facility] [address] [facility], [place], [place], [id number], [place] tel:[phone] Converted Locations No Information 8 Dobles Lissa . [address] [place], [place], [id number] . tel:[phone] [facility], [address] [facility] [address], [place], [place], [id number], [place] tel:[phone] [facility] Urinary frequency 8 Dobles Lissa . [address] [place], [place], [id number] . tel:[phone] [facility], [address] [facility] [address], [place], [place], [id number], [place] tel:[phone] [facility] Unspecified chest pain 8 Z-Convert ed Provider. . Family History Family Member Type Diagnosis Age At Onset No Information Immunizations Vaccine Date Status Comments INFLUENZA VACCINE AGE 3 AND ABOVE administered Source: New Immuniza tion Record Payers Payer name Insurance type Covered constitution party ID Authoriza tion(s) No Information Social History Type Description Quantity Date Captured Comments Sex Male Smoking Status No Information Chief Complaint And Reason For Visit No Information Reason For Referral Reason For Referral No Information History Of Present Illness Encounter Date Complaint History Of Prese nt Illness No Information Functional Status Date Functional Assessmen t No Information Instructions Date Instruction Additional Infor mation No Information Assessments Type Assessment Date No Information Patient Care Teams Name Effective Dates (start - stop) Status Members No Information
--- OUTSIDE RECORDS SUMMARY | 2024-10-22 08:23 | XMS_ITS | Encounter Summary ---
Author Organization [facility] Address [address] [facility] [address] [place] [address] Care Team Providers Care Sales And Marketing Associate Name Role Phone Unavailable Primary Care Provider Unavailabl e Encounter Details Date Type Department Care Team (Latest Contact Info) Description 05/15/2019 Abstract [facility]VERSION[facility] Dental, Provider, DDS Social History Tobacco Use Types Packs/Day Years Used Date Smoking Tobacco: Never Assessed Sex and Gender Information Value Date Recorded Sex Assigned at Male 07/12/2022 10:25 AM EDT Legal Sex Male 10:25 AM EDT Gender Identity Not on file Sexual Orientation Not on file documented as of this encounter Plan of Treatment Not on file documented as of this encounter Visit Diagnoses Not on filedocumented in this encounter
--- OUTSIDE RECORDS SUMMARY | 2024-10-22 08:23 | XMS_ITS | Clinical Summary ---
Author Organization [facility] it Address [address] [place] [address] Care Team Providers Care Human Resources Intern Name Role Phone Yumiko Michelle MD Primary Care Prov ider Allergies No known active allergies Medications celecoxib (CeleBREX) 200 mg capsule Take 1 Capsule by mouth 2 times daily as needed for Pain. 4 Active atenoloL (TENORMIN) 50 mg tablet Take 1 tablet (50 mg total) by mouth 1 (one) time each day. 4 Active amLODIPine (NORVASC) 5 mg tablet Take 1 tablet (5 mg total) by mouth 1 (one) time each day. 4 Active docusate sodium (COLACE) 250 mg capsule Take 1 Capsule by mouth daily as needed for Constipation. 4 Active pantoprazole (PROTONIX) 40 mg EC tablet Take 1 tablet (40 mg total) by mouth 1 (one) time each day. 4 Active capsaicin (Zostrix) 0.033 % cream Apply 4 g topically 3 times daily as needed (PAIN). 4 Active diclofenac (VOLTAREN) 1 % topical gel Apply 1 Dose topically 2 (two) times a day. 4 Active DULoxetine (CYMBALTA) [address] capsule Take 1 capsule (30 mg total) by mouth 1 (one) time each day. 90 capsule 4 Active fexofenadine (EDDY) 60 mg tablet Take 1 tablet (60 mg total) by mouth 1 (one) time each day. 90 tablet 4 Active Active Problems Problem Noted Date Diagnosed Date Seasonal allergies 06/06/2024 Hypercholesterolemia 06/22/2023 Sweating increase 09/08/2021 Chronic, continuous use of opioids 05/03/2019 Morbid obesity 12/23/2016 Umbilical hernia without obstruction and without gangrene 06/02/2016 Meralgia paresthetica of right side 11/04/2014 Overview (08/14/2024): Per Dr. Ruiz note 10/22/14 OA (osteoarthritis) of knee 01/18/2013 Overview (08/14/2024): Xrays mod OA 11/2011 DJD of shoulder 01/18/2013 Overview (08/14/2024): Mild on xray 2011 Obstructive sleep apnea 10/30/2012 Vitamin D deficiency 08/10/2012 Essential hypertension, benign 06/14/2011 Low testosterone 06/14/2011 Overview (08/14/2024): Previously saw Dr. Samuel (Uro) and used testosterone gel; DC'd about 2013 Arthralgia of multiple sites 06/14/2011 Overview (08/14/2024): Low back, both knees, ankles, left shoulder Diagnosed with RA prev PCP but no inflammatory changes observed in joints today Will get previous records Fibromyalgia 06/14/2011 Overview (08/14/2024): Per patient. Dx from previous PCP GERD (gastroesophageal reflux disease) 1 Migraine 06/14/2011 Depression with anxiety 06/14/2011 Overview (08/14/2024): Sees Mecca Campuzano therapist, Quique Henderson prescriber at [facility] in [place]. CTS (carpal tunnel syndrome) 06/14/2011 Immunizations Name Administration Dates Next Due Hepatitis B (Iztckcw-U-Pibha , Recombivax HB-Adult) 19yo and older 04/08/2014,08/31/2013,08/01/2013 Influenza Quadravalent, MDCK , 0.5ml, preservative free (Flucelvax) 6mo and older 06/22/2023,07/26/2022,06/25/2021,2019,07/30/2019,07/25/2018 Influenza Quadravalent, MDCK , 0.5ml, with preservative (Flucelvax) 6mo and older 07/04/2017 Influenza trivalent, 0.5mL, preservative free (Fluarix; FluLaval; Fluzone) ages 6mo and older (Afluria) 3 years and older 06/06/2024,09/21/2016,05/23/2015,2013,07/12/2013,08/10/2012,06/14/2011 MMR, measles mumps and rubel la Live (Priorix; M-M-R II) 12mo and older 08/01/2013 Td Tetanus diptheria (Tdvax) 7yo and older 12/15/2021 Tdap Tetanus diptheria acell ular pertussis (Boostrix; Adacel) 7yo and older 12/02/2011 Zoster recombinant (Shingrix ) 19yo and older 09/06/2023 Surgical History Surgery Date Site/Laterality Comments FOOT SURGERY 2009, 2010 PROCEDURE: HISTORICAL FOOT SURGERY; COMMENT: [facility]- left metatarsal repair BARIATRIC SURGERY 10/09/2020 PROCEDURE: [facility] RSTRICTIV PX LONGITUDINAL GASTRECTOMY; COMMENT: Dr. Dominguez - May Medical History Medical History Date Comments Arthralgia of multiple sites 06/14/2011 DX: Arthralgia of multiple sites Essential hypertension, benign 06/14/2011 D X:Essential hypertension, benign Hypercholesterolemia 06/14/2011 DX:Hypercho lesterolemia Low testosterone 06/14/2011 DX:Low testoste patrick CTS (carpal tunnel syndrome) 06/14/2011 DX: CTS (carpal tunnel syndrome) Depression with anxiety 06/14/2011 DX:Depre ssion with anxiety; COMMENT: Sees Mecca Campuzano therapist, Quique Henderson prescriber at [facility] in [place]. Migraine 06/14/2011 DX:Migraine GERD (gastroesophageal reflux disease) 06/14/2011 DX:GERD (gastroesophageal reflux disease) Fibromyalgia 06/14/2011 DX:Fibromyalgia; COMMENT: Per patient. Dx from previous PCP Vitamin D deficiency 08/10/2012 DX:Vitamin D deficiency Sleep apnea 10/30/2012 DX:Sleep apnea Morbid obesity (CMS/HCC) 12/23/2016 DX:Morb id obesity ([facility]) Chronic, continuous use of opioids 05/03/2019 DX:Chronic, continuous use of opioids Family History Medical History Relation Name Comments No Known Problems Brother 1 Half pater nal Other: HIV Brother 2 Half paternal Asthma Daughter Abel : 09/08/1993 Arthritis Father GI problems Father Diabetes Maternal Grandfather No Known Problems Maternal Grandmother No Known Problems Mother No Known Problems Paternal Grandfather No Known Problems Paternal Grandmother No Known Problems Sister 1 Half pater nal No Known Problems Sister 2 Half pater nal No Known Problems Sister 3 Half pater nal No Known Problems Sister 4 Half pater nal No Known Problems Sister 5 Half mater nal Asthma Son 1 Danish : 04/04/2000 No Known Problems Son 2 Surinder Lloyd : 2000; fraternal twin No Known Problems Son 3 Surinder Todd : 2000; fraternal twin No Known Problems Son 4 Romina : 003 Breast cancer Neg Hx Colon cancer Neg Hx Heart attack Neg Hx Ovarian cancer Neg Hx Prostate cancer Neg Hx Uterine cancer Neg Hx Relation Name Status Comments Brother 1 Alive Brother 2 Daughter Abel Alive Father Alive Maternal Grandfather Maternal Grandmother Alive Mother Alive Paternal Grandfather Paternal Grandmother Sister 1 Alive Sister 2 Alive Sister 3 Alive Sister 4 Alive Sister 5 Alive Son 1 Danish Alive Son 2 Surinder Lloyd Alive Son 3 Surinder Todd Alive Son 4 Romina Alive Social History Tobacco Use Types Packs/Day Years Used Date Smoking Tobacco: Never Smokeless Tobacco: Never Alcohol Use Standard Drinks/Week Comments Yes 0 (1 standard drink = 0.6 oz pur e alcohol) Sex and Gender Information Value Date Recorded Sex Assigned at Male 09/20/2024 3:09 PM EST Legal Sex Male 2:57 AM EST Gender Identity Male 09/20/2024 3:09 PM EST Sexual Orientation Straight 09/20/2024 3: 09 PM EST Obstetrics History Last Filed Vital Signs Vital Sign Reading Time Taken Comments Blood Pressure 112/66 06/06/2024 2:20 PM EDT Pulse 67 06/06/2024 2:20 PM EDT Temperature - - Respiratory Rate - - Oxygen Saturation - - Inhaled Oxygen Concentration - - Weight 131 kg (288 lb 12.8 oz) 06/06/2024 2:20 P M EDT Height 172.7 cm (5' 8 ) 06/06/2024 2:20 PM EDT Body Mass Index 43.91 06/06/2024 2:20 PM EDT Plan of Treatment Upcoming Encounters Date Type Department Care Team (Late st Contact Info) Description 10/23/2024 9:30 AM EST Office Visit Adult Medicine [facility] [address] [place] [phone] Yumiko Michelle MD [address] [place] [id number] Health Maintenance Due Date Last Done Comments Pneumococcal Vaccine: 50+ Years (1 of 1 - PCV) 02/17/2022 DTaP,Tdap,and Td Vaccines (3 - Td or Tdap) 06/16/2022 12/15/2021, 12/02/2011 HIV Screening 08/21/2022 Social Influencers of Health Screening 08/21/2022 Zoster Vaccines (2 of 2) 11/01/2023 09/06/2023 COVID-19 Vaccine (4 - season) 2024 09/06/2023, 2021, 12/30/2020 Depression Screening 10/20/2024 10/20/2023 Hypertension/CHF/CAD Annual BMP Blood Test 04/19/2025 04/19/2024, 04/19/2024 Colorectal Cancer Screening: FIT-DNA (Cologuard) 09/16/2025 09/16/2022 Cholesterol Screening (Lipid Panel) 04/19/2029 04/19/2024, 04/19/2024 MMR Vaccines Aged Out 08/01/2013 No longer eligi ble based on patient's age to complete this topic Hepatitis B Vaccines Completed 04/08/2014, 08/31/2013, 08/01/2013 Hepatitis C Screening Completed 07/26/2022 Influenza Vaccine Completed 06/06/2024, , 07/26/2022, Additional history exists HIB Vaccines Aged Out No longer eligi ble based on patient's age to complete this topic HPV Vaccines Aged Out No longer eligi ble based on patient's age to complete this topic Hepatitis A Vaccines Aged Out No long er eligible based on patient's age to complete this topic IPV Vaccines Aged Out No longer eligi ble based on patient's age to complete this topic Meningococcal ACWY Vaccine Aged Out N o longer eligible based on patient's age to complete this topic Meningococcal B Vacine Aged Out No lo nger eligible based on patient's age to complete this topic Pneumococcal Vaccine: Pediatrics (0 to 5 Years) and At-Risk Patients (6 to 64 Years) Aged Out No longer eligible based on patient's age to complete this topic RSV Immunization Patients Under 20 months Aged Out No longer eligible based on patient's age to complete this topic Varicella Vaccines Aged Out No longer eligible based on patient's age to complete this topic Procedures Procedure Name Priority Date/Time Associated Diagnosis Comments ANNUAL BMP BLOOD TEST Routine 04/19/2024 LIPID PANEL Routine 04/19/2024 DEPRESSION SCREENING Routine 10/20/2023 FIT-DNA Routine 09/16/2022 HEPATITIS C SCREENING Routine 07/26/2022 from Last 3 Months or Most Recently Relevant to Health Maintenance Results * Annual BMP Blood Test (04/19/2024) Pathologist [facility] Annual BMP Blood Test Abstracted Historical Provider HEALTH MAINTENANCE Final Result * (ABNORMAL) Lipid panel (04/19/2024) [facility] LDL/HDL Ratio 4 0 - 4 Triglycerides 75 0 - 150 mg/dL Cholesterol 148 0 - 200 mg/dL HDL 39(A) >=40 mg/dL LDL Cholesterol 94 0 - 100 mg/dL Blood Venous blood specimen / Unknown Historical Provider LAB BLOOD ORDERABLES Sylvia l Result * Depression Screening (10/20/2023) [facility] Depression Screening Abstracted Historical Provider HEALTH MAINTENANCE Final Result * FIT-DNA (Cologuard) (09/16/2022) [facility] Colorectal Cancer Screening: FIT-DNA (Cologuard) Negative, Abstracted Historical Provider HEALTH MAINTENANCE Final Result * Hepatitis C Screening (07/26/2022) [facility] Hepatitis C Screening Abstracted Historical Provider HEALTH MAINTENANCE Final Result from Last 3 Months or Most Recently Relevant to Health Maintenance Care Teams Human Resources Intern Relationship Specialty Start Date End Date Yumiko Michelle MD PCP - General Internal Medicine 05/06/22
--- OUTSIDE RECORDS SUMMARY | 2024-10-22 08:23 | XMS_ITS | Clinical Summary ---
Author Organization [employer] Address [address] [facility] [address] [place] [address] Care Team Providers Care Trimmer Sorter Name Role Phone Unavailable Primary Care Provider Unavailabl e Social History Tobacco Use Types Packs/Day Years Used Date Smoking Tobacco: Never Assessed Sex and Gender Information Value Date Recorded Sex Assigned at Male 07/12/2022 10:25 AM EDT Legal Sex Male 10:25 AM EDT Gender Identity Not on file Sexual Orientation Not on file Plan of Treatment Health Maintenance Due Date Last Done Comments CT Colonography 1972 Colonoscopy 1972 Colorectal Cancer Screening 1972 Depression Screening 1972 FIT DNA/Cologuard 1972 FIT 1972 FOBT 1972 Lipid Panel 1972 Sigmoidoscopy 1972 Alcohol/Substance Use Screening 1984 Tobacco Screening 1984 Family Planning (PISQ) 02/17/1987 DTaP/Tdap/Td Vaccines (1 - Tdap) 02/17/1991 Hepatitis B Vaccines (1 of 3 - 19+ 3-dose series) 02/17/1991 Pneumococcal Vaccine: 50+ Ye ars (1 of 1 - PCV) 02/17/2022 Zoster Vaccines (1 of 2) 02/17/2022 COVID-19 Vaccine ( - 2023-2 5 season) 2024 Influenza Vaccine (#1) 2024 RSV Patients and Pa tients Aged 60 years or older (1 - 1-dose 75+ series) 02/17/2047 HIB Vaccines Aged Out No longer eligi [...] patient's age to complete this topic Meningococcal Vaccine Aged Out No shashank kang eligible based on patient's age to complete this topic Pneumococcal Vaccine: Pediat rics (0 to 5 Years) and At-Risk Patients (6 to 49) Years) Aged Out No longer eligible b ased on patient's age to complete this topic RSV under 20 months Aged Out No longe r eligible based on patient's age to complete this topic Rotavirus Vaccines Aged Out No longer eligible based on patient's age to complete this topic
== END 2024-10-22 08:11 | disposition home or self-care (01) ==
LOC: HO.HOSX 08:10
PROVIDERS: Visit Provider Physician Assistant
DX: M17.11 Unilateral primary osteoarthritis, right knee (principal); M25.562 Pain in left knee
CPT/HCPCS: 73562; 99202

== ENCOUNTER 2024-10-22 13:56 | Outpatient (AMB) | payer OTHER, SELFPAY ==
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
[2024-10-22 14:24] VITALS: BMI 44.1
--- OUTSIDE RECORDS SUMMARY | 2024-10-22 15:07 | XMS_ITS | Encounter Summary ---
Author Organization [facility] Address [address] [place] [address] Care Team Providers Care Car Rental Sales Assistant Name Role Phone Paola Cooney MD Primary Care Provider Medina Amaya MD Primary Care Provider Yumiko Jerome MD Primary Care Prov ider Sylvie Groves NP Unavailable Pritesh Santana MD Unavailable Unavailabl e Encounter Details Date Type Department Care Team Description 08/01/2019 [facility] Medical Records [address] [place] [address] 90[address] Abstract, Provider Social History Tobacco Use Types Packs/Day Years Used Date Smoking Tobacco: Never Smokeless Tobacco: Never Alcohol Use Standard Drinks/Week Comments Yes 0 (1 standard drink = 0.6 oz pur e alcohol) Social occasions Sex Assigned at Date Recorded Male 03/07/2020 10:51 AM EDT Job Start Date Occupation Industry Not on file Not on file Not on file documented as of this encounter Plan of Treatment Not on file documented as of this encounter Visit Diagnoses Not on filedocumented in this encounter Care Teams Car Rental Sales Assistant Relationship Specialty Start Date End Date Paola Cooney MD PCP - General 06/30/10 02/24/21 Medina Lemus MD PCP - General Internal Medicine 02/25/21 05/05/22 Yumiko Prakash MD [address] [place] [address] [id number] PCP - General Internal Medicine 05/06/22 Sylvie Groves NP [address] [place] [address] 01020 Specialist Nurse Practitioner [facility] 06/06/24 Pritesh Santana MD [address] [place] [address] 59483 Specialist Pulmonology 06/06/24 documented as of this encounter
--- OUTSIDE RECORDS SUMMARY | 2024-10-22 15:07 | XMS_ITS | Clinical Summary ---
Author Organization [facility] it Address [address] [place] [address] Care Team Providers Care Learning Coach Name Role Phone Yumiko Michelle MD Primary [...] Mecca Campuzano therapist, Quique Henderson prescriber at [facility] in [place]. CTS (carpal tunnel syndrome) 06/14/2011 Immunizations Name Administration Dates Next Due Hepatitis B (Iwyfuag-O-Spzrr , Recombivax HB-Adult) 19yo and older 04/08/2014,08/31/2013,08/01/2013 [...] 2009, 2010 PROCEDURE: HISTORICAL FOOT SURGERY; COMMENT: [facility]- left metatarsal repair BARIATRIC SURGERY 10/09/2020 PROCEDURE: [facility] RSTRICTIV PX LONGITUDINAL GASTRECTOMY; COMMENT: Dr. Dominguez - Nitro Medical History Medical History Date Comments Arthralgia of multiple sites 06/14/2011 DX: Arthralgia of multiple sites Essential hypertension, benign 06/14/2011 D X:Essential hypertension, benign Hypercholesterolemia 06/14/2011 DX:Hypercho lesterolemia Low testosterone 06/14/2011 DX:Low testoste patrick CTS (carpal tunnel syndrome) 06/14/2011 DX: CTS (carpal tunnel syndrome) Depression with anxiety 06/14/2011 DX:Depre ssion with anxiety; COMMENT: Sees Mecca Campuzano therapist, Quique Henderson prescriber at [facility] in [place]. Migraine 06/14/2011 DX:Migraine GERD (gastroesophageal reflux disease) 06/14/2011 DX:GERD (gastroesophageal reflux disease) Fibromyalgia 06/14/2011 DX:Fibromyalgia; COMMENT: Per patient. Dx from previous PCP Vitamin D deficiency 08/10/2012 DX:Vitamin D deficiency Sleep apnea 10/30/2012 DX:Sleep apnea Morbid obesity (CMS/HCC) 12/23/2016 DX:Morb id obesity ([facility]) Chronic, continuous use of opioids 05/03/2019 DX:Chronic, [...] 9:30 AM EST Office Visit Adult Medicine [facility] [address] [place] [phone] Yumiko Michelle MD [address] [place] [address]684 Health Maintenance Due Date Last Done Comments [...] * Annual BMP Blood Test (04/19/2024) Pathologist [facility] Annual BMP Blood Test Abstracted Historical Provider HEALTH MAINTENANCE Final Result * (ABNORMAL) Lipid panel (04/19/2024) [facility] LDL/HDL Ratio 4 0 - 4 Triglycerides 75 0 - 150 mg/dL Cholesterol 148 0 - 200 mg/dL HDL 39(A) >=40 mg/dL LDL Cholesterol 94 0 - 100 mg/dL Blood Venous blood specimen / Unknown Historical Provider LAB BLOOD ORDERABLES Sylvia l Result * Depression Screening (10/20/2023) [facility] Depression Screening Abstracted Historical Provider HEALTH MAINTENANCE Final Result * FIT-DNA (Cologuard) (09/16/2022) [facility] Colorectal Cancer Screening: FIT-DNA (Cologuard) Negative, Abstracted Historical Provider HEALTH MAINTENANCE Final Result * Hepatitis C Screening (07/26/2022) [facility] Hepatitis C Screening Abstracted Historical Provider HEALTH MAINTENANCE Final Result from Last 3 Months or Most Recently Relevant to Health Maintenance Care Teams Learning Coach Relationship Specialty Start Date End Date Yumiko Michelle MD PCP - General Internal Medicine 05/06/22
--- OUTSIDE RECORDS SUMMARY | 2024-10-22 15:07 | XMS_ITS | Encounter Summary ---
Author Organization [facility] Address [address] [place] [address] Care Team Providers Care Importer Or Exporter Name Role Phone Paola Cooney MD Primary Care Provider Mdeina Amaya MD Primary Care Provider Yumiko Jerome MD Primary Care Prov ider Sylvie Groves NP Unavailable [phone] Pritesh Santana MD Unavailable Unavailabl e Encounter Details Date Type Department Care Team Description 06/15/2011 Release of Information Medical Records [address] [place] [address] Abstract, Provider Social History Tobacco Use Types Packs/Day Years Used Date Smoking Tobacco: Never Smokeless Tobacco: Never Alcohol Use Standard Drinks/Week Comments Not Asked 0 (1 standard drink = 0.6 oz pur e alcohol) Sex Assigned at Date Recorded Male 03/07/2020 10:51 AM EDT Job Start Date Occupation Industry Not on file Not on file Not on file documented as of this encounter Plan of Treatment Not on file documented as of this encounter Visit Diagnoses Not on filedocumented in this encounter Care Teams Importer Or Exporter Relationship Specialty Start Date End Date Paola Cooney MD PCP - General 06/30/10 02/24/21 Medina Lemus MD PCP - General Internal Medicine 02/25/21 05/05/22 Yumiko Prakash MD [address] [place] [address] [phone] PCP - General Internal Medicine 05/06/22 Sylvie Groves NP [address] [place] [address] Specialist Nurse Practitioner [facility] 06/06/24 Pritesh Santana MD [address] [place] [address] Specialist Pulmonology 06/06/24 documented as of this encounter
--- OUTSIDE RECORDS SUMMARY | 2024-10-22 15:07 | XMS_ITS | Encounter Summary ---
Author Organization [facility] Address [address] [place] [address] Care Team Providers Care Violin Repairer Name Role Phone Paola Cooney MD Primary Care Provider Medina Amaya MD Primary Care Provider Yumiko Jerome MD Primary Care Prov ider Sylvie Groves NP Unavailable [phone] Pritesh Santana MD Unavailable Unavailabl e Encounter Details Date Type Department Care Team Description 06/28/2019 Pyridine Recovery Operator Report Medical Records [address] [place] [address] Beronica Solis Social History Tobacco Use Types Packs/Day Years [...] on filedocumented in this encounter Care Teams Violin Repairer Relationship Specialty Start Date End Date Paola Cooney MD PCP - General 06/30/10 02/24/21 Medina Lemus MD PCP - General Internal Medicine 02/25/21 05/05/22 Yumiko Prakash MD [address] [place] [address] [id number] PCP - General Internal Medicine 05/06/22 Sylvie Groves NP [address] [place] [address] Specialist Nurse Practitioner [facility] 06/06/24 Pritesh Santana MD [address] [place] [address] Specialist Pulmonology 06/06/24 documented as of this encounter
--- OUTSIDE RECORDS SUMMARY | 2024-10-22 15:07 | XMS_ITS | Encounter Summary ---
Author Organization [facility] Address [address] [place] [address] Care Team Providers Care Conference Services Coordinator Name Role Phone Paola Cooney MD Primary Care Provider Medina Amaya MD Primary Care Provider Yumiko Jerome MD Primary Care Prov ider Sylvie Groves DRY END TESTER Unavailable [phone] Pritesh Santana MD Unavailable Unavailabl e Reason for Visit * Reason Onset Date Comments Faxed Refill 02/12/2019 Encounter Details Date Type Department Care Team Description 02/12/2019 Refill Adult Medicine [address] [address] Paola Cooney MD Faxed Refill Social History Tobacco Use Types Packs/Day Years Used Date Smoking Tobacco: Never Smokeless Tobacco: Never Alcohol Use Standard Drinks/Week Comments Yes 0 (1 standard drink = 0.6 oz pur e alcohol) Social occasions Sex Assigned at Date Recorded Male 03/07/2020 10:51 AM EDT Job Start Date Occupation Industry Not on file Not on file Not on file documented as of this encounter Miscellaneous Notes * Telephone Encounter - Judit Hoyt M.A. - 02/12/2019 3:29 PM EDT Lab Results Component Value Date NA 141 01/22/2019 K 4.1 01/22/2019 CO2 27 01/22/2019 CL 105 01/22/2019 BUN 18 01/22/2019 CREAT 0.75 01/22/2019 GLU 110 01/22/2019 CA 9.2 01/22/2019 GFR > 60 01/22/2019 * Telephone Encounter - Mikki Norton - 02/12/2019 2:36 PM EDT Patient would like script to be: E-PRESCRIBED/FAXED TO PHARMACY WHEN WAS THE PATIENT'S LAST APPOINTMENT IN ADULT MEDICINE? 01/22/19 WHEN WAS THE LAST TIME THE PATIENT SAW THEIR PCP? 12/28/18 Does patient have an upcoming appointment? No-patient refused appointment, will call back to book appointment (THE MEDICATION REQUESTED IS ON THE MED LIST ABOVE) All of the medications requested were on the CURRENT MEDS list Did you check the Pharmacy information above?: YES Patient wants: 30 -day supply Is this a mail order prescription request ? NO If the refill is from a FAXED refill request what is the RX # listed on the fax? N/A Patients current insurance carrier is: [place] / [place] / Product Type: MEDICARE [id number] documented in this encounter Plan of Treatment Not on file documented as of this encounter Visit Diagnoses Not on filedocumented in this encounter Care Teams Conference Services Coordinator Relationship Specialty Start Date End Date Paola Cooney MD PCP - General 06/30/10 02/24/21 Medina Lemus MD PCP - General Internal Medicine 02/25/21 05/05/22 Ruth Digeo, Yumiko Shah MD [address] [place] [address] PCP - General Internal Medicine 05/06/22 Sylvie Groves NP [address] [place] [address]60[address] Specialist Nurse Practitioner Family 06/06/24 Pritesh Santana MD [address] [place] [address] 44830 Specialist Pulmonology 06/06/24 documented as of this encounter
--- OUTSIDE RECORDS SUMMARY | 2024-10-22 15:07 | XMS_ITS | Encounter Summary ---
Author Organization [facility] Address [address] [place] [address] Care Team Providers Care Fitness Manager Name Role Phone Paola Cooney MD Primary Care Provider Medina Amaya MD Primary Care Provider Yumiko Jerome MD Primary Care Prov ider Sylvie Groves NP Unavailable [phone] Pritesh Santana MD Unavailable Unavailabl e Encounter Details Date Type Department Care Team Description 06/21/2019 Pre K Lead Teacher Report Medical Records [address] [place] [address] Abstract, Provider Social History Tobacco Use Types [...] on filedocumented in this encounter Care Teams Fitness Manager Relationship Specialty Start Date End Date Paola Cooney MD PCP - General 06/30/10 02/24/21 Medina Lemus MD PCP - General Internal Medicine 02/25/21 05/05/22 Yumiko Prakash MD [address] [place] [address] [phone] PCP - General Internal Medicine 05/06/22 Sylvie Groves NP [address] [place] [address]20 Specialist Nurse Practitioner [facility] 06/06/24 Pritesh Santana MD [address] [place] [address] Specialist Pulmonology 06/06/24 documented as of this encounter
--- OUTSIDE RECORDS SUMMARY | 2024-10-22 15:07 | XMS_ITS | Encounter Summary ---
Author Organization [facility] Address [address] [place] [address] Care Team Providers Care Cell Preparer Name Role Phone Paola Cooney MD Primary Care Provider Medina Amaya MD Primary Care Provider Yumiko Jerome MD Primary Care Prov ider Sylvie Groves VENDING MACHINE COIN COLLECTOR Unavailable [phone] Pritesh Santana MD Unavailable Unavailabl e Reason for Visit * Reason Onset Date Comments Faxed Refill 08/31/2019 Encounter Details Date Type Department Care Team Description 08/31/2019 Refill Adult Medicine [address] [address] Paola Cooney MD Faxed Refill Social History [...] encounter Miscellaneous Notes * Telephone Encounter - Martinez Luong M.A. - 09/03/2019 9:25 AM EST Faxed to pharmacy * Telephone Encounter - Barbara Dorantes M.A. - 09/03/2019 8:29 AM EST Lab Results Component Value Date NA 141 01/22/2019 K 4.1 01/22/2019 CO2 27 01/22/2019 CL 105 01/22/2019 BUN 18 01/22/2019 CREAT 0.75 01/22/2019 GLU 110 01/22/2019 CA 9.2 01/22/2019 GFR > 60 01/22/2019 * Telephone Encounter - Jennifer Tse - 08/31/2019 5:35 PM EST Patient would like script to be: E-PRESCRIBED/FAXED TO PHARMACY WHEN WAS THE PATIENT'S LAST APPOINTMENT IN ADULT MEDICINE? 07/30/19 WHEN WAS THE LAST TIME THE PATIENT SAW THEIR PCP? Same as above Does patient have an upcoming appointment? Yes 11/05/19 (THE MEDICATION REQUESTED IS ON THE MED [...] N/A Patients current insurance carrier is: [facility] / Plan: [facility] [employer] / Product Type: HMO [id number] documented in this encounter Plan of Treatment Not on file documented as of this encounter Visit Diagnoses Not on filedocumented in this encounter Care Teams Cell Preparer Relationship Specialty Start Date End Date Paola Cooney MD PCP - General 06/30/10 02/24/21 Medina Lemus MD PCP - General Internal Medicine 02/25/21 05/05/22 Yumiko Prakash MD [address] [place] [address]20 PCP - General Internal Medicine 05/06/22 Sylvie Groves NP [address] [place] [address]20 Specialist Nurse Practitioner Family 06/06/24 Pritesh Santana MD [address] [place] [address] Specialist Pulmonology 06/06/24 documented as of this encounter
--- OUTSIDE RECORDS SUMMARY | 2024-10-22 15:07 | XMS_ITS | Encounter Summary ---
Author Organization [facility] Address [address] [place] [address] Care Team Providers Care Talent Acquisition Consultant Name Role Phone Yumiko Prakash MD Primary Care Prov ider Sylvie Groves ATTENDANCE OFFICER Unavailable [phone] Pritesh Santana MD Unavailable Unavailabl e Reason for Referral * EXTERNAL (Routine) - Authorized/Booked Specialty Diagnoses / Procedures Referred By Andrew wilde Referred To Contact Ophthalmology Procedures REFERRAL TO EXTERNAL OPHTHALMOLOGY Dominic Baldwin MD [address] [place] [address] Default, Provider Referral ID Status Reason Start Date Expiration Date V isits Requested Visits Authorized [id number] Authorized/B ooked 12/09/2023 12/08/2024 1 1 Encounter Details Date Type Department Care Team Description 12/09/2023 Pt. Non Urgent Medical Question Adult Medicine [address] [address] Yumiko Prakash MD [address] [place] [address] [phone] Social History Tobacco Use Types Packs/Day Years Used Date Smoking Tobacco: Never Smokeless Tobacco: Never Alcohol Use Standard Drinks/Week Comments Yes 0 (1 standard drink = 0.6 oz pur e alcohol) Social occasions Sex Assigned at Date Recorded Male 03/07/2020 10:51 AM EDT Job Start Date Occupation Industry Not on file Not on file Not on file documented as of this encounter Progress Notes * Noy Nayak R.N. - 12/09/2023 10:24 AM EDT Left detailed message on identified vm for pt advising referral Sent my chart message * Noy Nayak R.N. - 12/09/2023 10:11 AM EDT Please advise, ROSALINO 10/20/23 with PCP documented in this encounter Miscellaneous Notes * Telephone Encounter - Macho Gamboa - 12/09/2023 9:58 AM EDTFrom: Surinder Doss To: Grisel Diego Sent: 12/09/2023 9:45 AM EDT Subject: Eye Exam Rai . por favor necesito un referido para dominic un oftalm??logo lo m??s pronto posible. Los espejuelos que tengo no me ayudan mucho para estudiar me raj dolor de carlos alberto. Panfilo documented in this encounter Plan of Treatment Not on file documented as of this encounter Visit Diagnoses Not on filedocumented in this encounter Care Teams Talent Acquisition Consultant Relationship Specialty Start Date End Date Yumiko Prakash MD [address] [place] [phone] PCP - General Internal Medicine 05/06/22 Sylvie Groves NP [address] [place] [address] Specialist Nurse Practitioner Family 06/06/24 Pritesh Santana MD [address] [place] [address] 118[address] Specialist Pulmonology 06/06/24 documented as of this encounter
--- OUTSIDE RECORDS SUMMARY | 2024-10-22 15:07 | XMS_ITS | Encounter Summary ---
Author Organization [facility] Address [address] [place] [address] Care Team Providers Care Poly Packer And Heat Sealer Name Role Phone Paola Cooney MD Primary Care Provider Medina Amaya MD Primary Care Provider Yumiko Jerome MD Primary Care Prov ider Sylvie Groves NP Unavailable [phone] Pritesh Santana MD Unavailable Unavailabl e Encounter Details Date Type Department Care Team Description 08/13/2019 Old Medical Records Medical Records [address] [place] [address] Abstract, Provider Social History Tobacco Use Types [...] on filedocumented in this encounter Care Teams Poly Packer And Heat Sealer Relationship Specialty Start Date End Date Paola Cooney MD PCP - General 06/30/10 02/24/21 Medina Lemus MD PCP - General Internal Medicine 02/25/21 05/05/22 Yumiko Prakash MD [address] [place] [address] [phone] PCP - General Internal Medicine 05/06/22 Sylvie Groves NP [address] [place] [address]20 Specialist Nurse Practitioner [facility] 06/06/24 Pritesh Santana MD [address] [place] [address] Specialist Pulmonology 06/06/24 documented as of this encounter
--- OUTSIDE RECORDS SUMMARY | 2024-10-22 15:07 | XMS_ITS | Encounter Summary ---
Author Organization [employer] [facility] Address [address] [facility] [address] [place] [address] Care Team Providers Care Marine Fireman Name Role Phone Unavailable Primary Care Provider [...]
--- OUTSIDE RECORDS SUMMARY | 2024-10-22 15:07 | XMS_ITS | Encounter Summary ---
Author Organization [facility] Address [address] [place] [address] Care Team Providers Care Founder And Ceo Name Role Phone Paola Cooney MD Primary Care Provider Medina Amaya MD Primary Care Provider Yumiko Jerome MD Primary Care Prov ider Sylvie Groves NP Unavailable [phone] Pritesh Santana MD Unavailable Unavailabl e Encounter Details Date Type Department Care Team Description 10/21/2017 [facility] Medical Records [address] [place] [address] Abstract, Provider Social History Tobacco Use Types [...] on filedocumented in this encounter Care Teams Founder And Ceo Relationship Specialty Start Date End Date Paola Cooney MD PCP - General 06/30/10 02/24/21 Medina Lemus MD PCP - General Internal Medicine 02/25/21 05/05/22 Yumiko Prakash MD [address] [place] [address] [phone] PCP - General Internal Medicine 05/06/22 Sylvie Groves NP [address] [place] [address] Specialist Nurse Practitioner [facility] 06/06/24 Pritesh Santana MD [address] [place] [address] Specialist Pulmonology 06/06/24 documented as of this encounter
--- OUTSIDE RECORDS SUMMARY | 2024-10-22 15:07 | XMS_ITS | Encounter Summary ---
Author Organization [facility] Address [address] [place] [address] Care Team Providers Care Barber Shop Manager Name Role Phone Paola Cooney MD Primary Care Provider Medina Amaya MD Primary Care Provider Yumiko Jerome MD Primary Care Prov ider Sylvie Groves NP Unavailable [phone] Pritesh Santana MD Unavailable Unavailabl e Encounter Details Date Type Department Care Team Description 02/23/2017 [facility] Medical Records [address] [place] [address] Abstract, Provider Social History Tobacco Use Types [...] on filedocumented in this encounter Care Teams Barber Shop Manager Relationship Specialty Start Date End Date Paola Cooney MD PCP - General 06/30/10 02/24/21 Medina Lemus MD PCP - General Internal Medicine 02/25/21 05/05/22 Yumiko Prakash MD [address] [place] [address] [id number] PCP - General Internal Medicine 05/06/22 Sylvie Groves NP [address] [place] [address] Specialist Nurse Practitioner [facility] 06/06/24 Pritesh Santana MD [address] [place] [address] Specialist Pulmonology 06/06/24 documented as of this encounter
--- OUTSIDE RECORDS SUMMARY | 2024-10-22 15:07 | XMS_ITS | Encounter Summary ---
Author Organization [facility] Address [address] [place] [address] Care Team Providers Care Order Entry Administrator Name Role Phone Paola Cooney MD Primary Care Provider Medina Amaya MD Primary Care Provider Yumiko Jerome MD Primary Care Prov ider Sylvie Groves NP Unavailable [phone] Pritesh Santana MD Unavailable Unavailabl e Encounter Details Date Type Department Care Team Description 03/03/2020 Cork Grinder Report Medical Records [address] [place] [address] Dom Warren MD Social History Tobacco Use Types Packs/Day Years [...] on filedocumented in this encounter Care Teams Order Entry Administrator Relationship Specialty Start Date End Date Paola Cooney MD PCP - General 06/30/10 02/24/21 Medina Lemus MD PCP - General Internal Medicine 02/25/21 05/05/22 Yumiko Prakash MD [address] [place] [address] [phone] PCP - General Internal Medicine 05/06/22 Sylvie Groves NP [address] [place] [address]20 Specialist Nurse Practitioner Family 06/06/24 Pritesh Santana MD [address] [place] [address] 25081 Specialist Pulmonology 06/06/24 documented as of this encounter
--- OUTSIDE RECORDS SUMMARY | 2024-10-22 15:07 | XMS_ITS | Encounter Summary ---
Author Organization [facility] Address [address] [place] [address] Care Team Providers Care Shook Splicer Name Role Phone Paola Cooney MD Primary Care Provider Medina Amaya MD Primary Care Provider Yumiko Jerome MD Primary Care Prov ider Sylvie Groves NP Unavailable [phone] Pritesh Santana MD Unavailable Unavailabl e Encounter Details Date Type Department Care Team Description 08/18/2015 CUSTOMER LOYALTY REPRESENTATIVE/[employer] Report Medical Records [address] [place] [address] Abstract, Provider Social History Tobacco Use Types Packs/Day Years Used Date Smoking Tobacco: Never Smokeless Tobacco: Never Alcohol Use Standard Drinks/Week Comments Yes 0 (1 standard drink = 0.6 oz pur e alcohol) Socially Sex Assigned at Date Recorded Male 03/07/2020 10:51 AM EDT Job Start Date Occupation Industry Not on file Not on file Not on file documented as of this encounter Plan of Treatment Not on file documented as of this encounter Visit Diagnoses Not on filedocumented in this encounter Care Teams Shook Splicer Relationship Specialty Start Date End Date Paola Cooney MD PCP - General 06/30/10 02/24/21 Medina Lemus MD PCP - General Internal Medicine 02/25/21 05/05/22 Yumiko Prakash MD [address] [place] [address] [phone] PCP - General Internal Medicine 05/06/22 Sylvie Groves NP [address] [place] [address] Specialist Nurse Practitioner Family 06/06/24 Pritesh Santana MD [address] [place] [address] Specialist Pulmonology 06/06/24 documented as of this encounter
--- OUTSIDE RECORDS SUMMARY | 2024-10-22 15:07 | XMS_ITS | Encounter Summary ---
Author Organization [facility] Address [address] [place] [address] Care Team Providers Care Blackjack Dealer Name Role Phone Paola Cooney MD Primary Care Provider Medina Amaya MD Primary Care Provider Yumiko Jerome MD Primary Care Prov ider Sylvie Groves NP Unavailable Pritesh Santana MD Unavailable Unavailabl e Encounter Details Date Type Department Care Team Description 11/13/2018 [facility] Medical Records [address] [place] [address] Abstract, Provider Social History Tobacco Use Types [...] on filedocumented in this encounter Care Teams Blackjack Dealer Relationship Specialty Start Date End Date Paola Cooney MD PCP - General 06/30/10 02/24/21 Medina Lemus MD PCP - General Internal Medicine 02/25/21 05/05/22 Yumiko Prakash MD [address] [place] [address] [id number] PCP - General Internal Medicine 05/06/22 Sylvie Groves NP [address] [place] [address] Specialist Nurse Practitioner [facility] 06/06/24 Pritesh Santana MD [address] [place] [address] Specialist Pulmonology 06/06/24 documented as of this encounter
--- OUTSIDE RECORDS SUMMARY | 2024-10-22 15:07 | XMS_ITS | Encounter Summary ---
Author Organization [facility] Address [address] [place] [address] Care Team Providers Care It Administrative Assistant Name Role Phone Paola Cooney MD Primary Care Provider Medina Amaya MD Primary Care Provider Yumiko Jerome MD Primary Care Prov ider Sylvie Groves NP Unavailable [phone] Pritesh Santana MD Unavailable Unavailabl e Encounter Details Date Type Department Care Team Description 12/07/2011 Controlled Substance Plan Medical Records [address] [place] [address] Abstract, Provider Social History Tobacco Use Types Packs/Day Years Used Date Smoking Tobacco: Never Smokeless Tobacco: Never Alcohol Use Standard Drinks/Week Comments No 0 (1 standard drink = 0.6 oz pur e alcohol) Sex Assigned at Date Recorded Male 03/07/2020 10:51 AM EDT Job Start Date Occupation Industry Not on file Not on file Not on file documented as of this encounter Plan of Treatment Not on file documented as of this encounter Visit Diagnoses Not on filedocumented in this encounter Care Teams It Administrative Assistant Relationship Specialty Start Date End Date Paola Cooney MD PCP - General 06/30/10 02/24/21 Medina Lemus MD PCP - General Internal Medicine 02/25/21 05/05/22 Yumiko Prakash MD [address] [place] [address] [id number] PCP - General Internal Medicine 05/06/22 Sylvie Groves NP [address] [place] [address]389 Specialist Nurse Practitioner Family 06/06/24 Pritehs Santana MD [address] [place] [address] 08176 Specialist Pulmonology 06/06/24 documented as of this encounter
--- OUTSIDE RECORDS SUMMARY | 2024-10-22 15:07 | XMS_ITS | Encounter Summary ---
Author Organization [facility] Address [address] [place] [address] Care Team Providers Care Gasser Machine Operator Name Role Phone Paola Cooney MD Primary Care Provider Medina Amaya MD Primary Care Provider Yumiko Jerome MD Primary Care Prov ider Sylvie Groves SET UP INSPECTOR Unavailable [phone] Pritesh Santana MD Unavailable Unavailabl e Reason for Visit * Reason Onset Date Comments Testing 01/04/2019 ECHO Appt Encounter Details Date Type Department Care Team Description 01/04/2019 Telephone Radiology - [address] [address] Paola Cooney MD Testing (ECHO Appt) Social History Tobacco Use Types Packs/Day Years [...] encounter Miscellaneous Notes * Telephone Encounter - Chrissy Roland - 01/04/2019 8:20 AM EDT ECHO has been scheduled at [facility] for 01/29/19 at 1:00 pm Information letter has been mailed Chrissy Sen documented in this encounter Plan of Treatment Not on file documented as of this encounter Visit Diagnoses Not on filedocumented in this encounter Care Teams Gasser Machine Operator Relationship Specialty Start Date End Date Paola Cooney MD PCP - General 06/30/10 02/24/21 Medina Lemus MD PCP - General Internal Medicine 02/25/21 05/05/22 Yumiko Prakash MD [address] [place] [address] PCP - General Internal Medicine 05/06/22 Sylvie Groves NP [address] [place] [address] Specialist Nurse Practitioner Family 06/06/24 Pritesh Santana MD [address] [place] [address] Specialist Pulmonology 06/06/24 documented as of this encounter
--- OUTSIDE RECORDS SUMMARY | 2024-10-22 15:07 | XMS_ITS | Encounter Summary ---
Author Organization [facility] Address [address] [place] [address] Care Team Providers Care Vehicle And Equipment Cleaner Name Role Phone Paola Cooney MD Primary Care Provider Medina Amaya MD Primary Care Provider Yumiko Jerome MD Primary Care Prov ider Sylvie Groves NP Unavailable Pritesh Santana MD Unavailable Unavailabl e Encounter Details Date Type Department Care Team Description 07/23/2020 Director Of Catering Report Medical Records [address] [place] [address] Jerald Dominguez MD Social History Tobacco Use Types Packs/Day [...] on filedocumented in this encounter Care Teams Vehicle And Equipment Cleaner Relationship Specialty Start Date End Date Paola Cooney MD PCP - General 06/30/10 02/24/21 Medina Lemus MD PCP - General Internal Medicine 02/25/21 05/05/22 Yumiko Prakash MD [address] [place] [address] PCP - General Internal Medicine 05/06/22 Sylvie Groves NP [address] [place] [address] Specialist Nurse Practitioner Family 06/06/24 Pritesh Santana MD [address] [place] [address] Specialist Pulmonology 06/06/24 documented as of this encounter
--- OUTSIDE RECORDS SUMMARY | 2024-10-22 15:07 | XMS_ITS | Encounter Summary ---
Author Organization [facility] Address [address] [place] [address] Care Team Providers Care Interior Horticulturist Name Role Phone Paola Cooney MD Primary Care Provider Medina Amaya MD Primary Care Provider Yumiko Jerome MD Primary Care Prov ider Sylvie Groves NP Unavailable [phone] Pritesh Santana MD Unavailable Unavailabl e Encounter Details Date Type Department Care Team Description 07/19/2019 Ware Finisher Report Medical Records [address] [place] [address] Jerald Dominguez MD Social History Tobacco Use [...] on filedocumented in this encounter Care Teams Interior Horticulturist Relationship Specialty Start Date End Date Paola Cooney MD PCP - General 06/30/10 02/24/21 Medina Lemus MD PCP - General Internal Medicine 02/25/21 05/05/22 Yumiko Prakash MD [address] [place] [address] PCP - General Internal Medicine 05/06/22 Sylvie Groves NP [address] [place] [address] Specialist Nurse Practitioner Family 06/06/24 Pritesh Santana MD [address] [place] [address] Specialist Pulmonology 06/06/24 documented as of this encounter
--- OUTSIDE RECORDS SUMMARY | 2024-10-22 15:07 | XMS_ITS | Encounter Summary ---
Author Organization [facility] Address [address] [place] [address] Care Team Providers Care Glass Laminating Operator Name Role Phone Paola Cooney MD Primary Care Provider Medina Amaya MD Primary Care Provider Yumiko Jerome MD Primary Care Prov ider Sylvie Groves NP Unavailable [phone] Pritesh Santana MD Unavailable Unavailabl e Encounter Details Date Type Department Care Team Description 07/27/2012 Business Affairs Manager Report Medical Records [address] [place] [address] Jayme Samuel, PA-C Social History Tobacco Use Types Packs/Day Years [...] on filedocumented in this encounter Care Teams Glass Laminating Operator Relationship Specialty Start Date End Date Paola Cooney MD PCP - General 06/30/10 02/24/21 Medina Lemus MD PCP - General Internal Medicine 02/25/21 05/05/22 Yumiko Prakash MD [address] [place] [address] [phone] PCP - General Internal Medicine 05/06/22 Sylvie Groves NP [address] [place] [address] Specialist Nurse Practitioner Family 06/06/24 Pritesh Santana MD [address] [place] [address] 480[address] Specialist Pulmonology 06/06/24 documented as of this encounter
--- OUTSIDE RECORDS SUMMARY | 2024-10-22 15:07 | XMS_ITS | Encounter Summary ---
Author Organization [facility] Address [address] [place] [address] Care Team Providers Care Tempering Kiln Tender Name Role Phone Paola Cooney MD Primary Care Provider Medina Amaya MD Primary Care Provider Yumiko Jerome MD Primary Care Prov ider Sylvie Groves NP Unavailable [phone] Pritesh Santana MD Unavailable Unavailabl e Reason for Visit * Reason Onset Date Comments Faxed Refill 11/20/2019 Encounter Details Date Type Department Care Team Description 11/20/2019 Refill Adult Medicine [address] [address] Paola Cooney MD Faxed Refill Social History [...] encounter Miscellaneous Notes * Telephone Encounter - Radha Conti - 11/20/2019 11:55 AM EDT Patient would like script to be: E-PRESCRIBED/FAXED TO PHARMACY WHEN WAS THE PATIENT'S LAST APPOINTMENT IN ADULT MEDICINE? 11/05/19 WHEN WAS THE LAST TIME THE PATIENT SAW THEIR PCP? 07/30/19 Does patient have an upcoming appointment? Yes 02/07/20 (THE MEDICATION REQUESTED IS ON THE MED LIST ABOVE) All of the medications requested were on the CURRENT MEDS list Did you check the Pharmacy information above?: YES Patient wants: 90 -day supply Is this a mail order prescription request ? NO If the refill is from a FAXED refill request what is the RX # listed on the fax? N/A Patients current insurance carrier is: Payor: [employer] [facility] Fineline MCR / Plan: [facility] / Product Type: HMO [id number] documented in this encounter Plan of Treatment Not on file documented as of this encounter Visit Diagnoses Not on filedocumented in this encounter Care Teams Tempering Kiln Tender Relationship Specialty Start Date End Date Paola Cooney MD PCP - General 06/30/10 02/24/21 Medina Lemus MD PCP - General Internal Medicine 02/25/21 05/05/22 Yumiko Prakash MD [address] [place] [address] PCP - General Internal Medicine 05/06/22 Sylvie Groves NP [address] [place], [place] [phone] Specialist Nurse Practitioner Family 06/06/24 Pritesh Santana MD [address] [place], [place] [phone] Specialist Pulmonology 06/06/24 documented as of this encounter
--- OUTSIDE RECORDS SUMMARY | 2024-10-22 15:07 | XMS_ITS | Encounter Summary ---
Author Organization [facility] Address [address] [place] [address] Care Team Providers Care Visual Merchandising Associate Name Role Phone Paola Cooney MD Primary Care Provider Medina Amaya MD Primary Care Provider Yumiko Jerome MD Primary Care Prov ider Sylvie Groves NP Unavailable [phone] Pritesh Santana MD Unavailable Unavailabl e Encounter Details Date Type Department Care Team Description 07/12/2019 Scale Tester Report Medical Records [address] [place] [address] Abstract, Provider Social History Tobacco Use Types [...] on filedocumented in this encounter Care Teams Visual Merchandising Associate Relationship Specialty Start Date End Date Paola Cooney MD PCP - General 06/30/10 02/24/21 Medina Lemus MD PCP - General Internal Medicine 02/25/21 05/05/22 Yumiko Prakash MD [address] [place] [address] [phone] PCP - General Internal Medicine 05/06/22 Sylvie Groves NP [address] [place] [address]20 Specialist Nurse Practitioner [facility] 06/06/24 Pritesh Santana MD [address] [place] [address]6300 Specialist Pulmonology 06/06/24 documented as of this encounter
--- OUTSIDE RECORDS SUMMARY | 2024-10-22 15:07 | XMS_ITS | Encounter Summary ---
Author Organization [facility] Address [address] [place] [address] Care Team Providers Care Bulk Tank Driver Name Role Phone Paola Cooney MD Primary Care Provider Medina Amaya MD Primary Care Provider Yumiko Jerome MD Primary Care Prov ider Sylvie Groves STAINED GLASS GLAZIER Unavailable [phone] Pritesh Santana MD Unavailable Unavailabl e Reason for Visit * Reason Onset Date Comments radiology 07/27/2014 mri testing. Encounter Details Date Type Department Care Team Description 07/27/2014 [place] Adult [address] [address] Paola Cooney MD radiology (mri testing.) Social History Tobacco Use Types Packs/Day Years [...] encounter Miscellaneous Notes * Telephone Encounter - Patti Roldan L.P.N. - 07/29/2014 9:47 AM EST External order forwarded to [facility] 07/29/2014 Medicare/[employer] No auth requried * Telephone Encounter - Paola Cooney MD - 07/29/2014 9:20 AM EST Order placed for external MRI. * Telephone Encounter - Shonda Agrawal - 07/27/2014 12:37 PM EST Surinder Doss will not fit in the mri machine at [place] for the mri lumbar spine you requested, can you please order an external mri lumbar spine for him to have his test on the open mri scanner? Thanks. Shonda. MRI Dept. documented in this encounter Plan of Treatment Not on file documented as of this encounter Results * MRI OF LUMBAR SPINE NO CONTRAST (08/06/2014) Paola Cooney MD MRI documented in this encounter Visit Diagnoses Diagnosis Low back pain radiating to right leg- Primary Lumbago documented in this encounter Care Teams Bulk Tank Driver Relationship Specialty Start Date End Date Paola Cooney MD PCP - General 06/30/10 02/24/21 Medina Lemus MD PCP - General Internal Medicine 02/25/21 05/05/22 Yumiko Prakash MD [address] [place] [address] PCP - General Internal Medicine 05/06/22 Sylvie Groves NP [address] [place] [address] [phone] Specialist Nurse Practitioner Family 06/06/24 Pritesh Santana MD [address] [place] [address] Specialist Pulmonology 06/06/24 documented as of this encounter
--- OUTSIDE RECORDS SUMMARY | 2024-10-22 15:07 | XMS_ITS | Encounter Summary ---
Author Organization [facility] Address [address] [place] [address] Care Team Providers Care Weight Loss Counselor Name Role Phone Paola Cooney MD Primary Care Provider Medina Amaya MD Primary Care Provider Yumiko Jerome MD Primary Care Prov ider Sylvie Groves NP Unavailable [phone] Pritesh Santana MD Unavailable Unavailabl e Encounter Details Date Type Department Care Team Description 07/21/2016 [facility] Medical Records [address] [place] [address] Abstract, Provider Social History Tobacco Use Types [...] on filedocumented in this encounter Care Teams Weight Loss Counselor Relationship Specialty Start Date End Date Paola Cooney MD PCP - General 06/30/10 02/24/21 Medina Lemus MD PCP - General Internal Medicine 02/25/21 05/05/22 Yumiko Prakash MD [address] [place] [address] [phone] PCP - General Internal Medicine 05/06/22 Sylvie Groves NP [address] [place] [address]20 Specialist Nurse Practitioner [facility] 06/06/24 Pritesh Santana MD [address] [place] [address] Specialist Pulmonology 06/06/24 documented as of this encounter
--- OUTSIDE RECORDS SUMMARY | 2024-10-22 15:07 | XMS_ITS | Encounter Summary ---
Author Organization [facility] Address [address] [place] [address] Care Team Providers Care Caddie Name Role Phone Paola Cooney MD Primary Care Provider Medina Amaya MD Primary Care Provider Yumiko Jerome MD Primary Care Prov ider Sylvie Groves NP Unavailable Pritesh Santana MD Unavailable Unavailabl e Encounter Details Date Type Department Care Team Description 07/24/2019 Square Cutter Report Medical Records [address] [place] [address] Jerald Dominguez MD Social History Tobacco Use [...] on filedocumented in this encounter Care Teams Caddie Relationship Specialty Start Date End Date Paola Cooney MD PCP - General 06/30/10 02/24/21 Medina Lemus MD PCP - General Internal Medicine 02/25/21 05/05/22 Yumiko Prakash MD [address] [place] [address]20 PCP - General Internal Medicine 05/06/22 Sylvie Groves NP [address] [place] [address]20 Specialist Nurse Practitioner Family 06/06/24 Pritesh Santana MD [address] [place] [address] Specialist Pulmonology 06/06/24 documented as of this encounter
--- OUTSIDE RECORDS SUMMARY | 2024-10-22 15:07 | XMS_ITS | Encounter Summary ---
Author Organization [facility] Address [address] [place] [address] Care Team Providers Care Tin Worker Name Role Phone Paola Cooney MD Primary Care Provider Medina Amaya MD Primary Care Provider Yumiko Jerome MD Primary Care Prov ider Sylvie Groves CARE COORDINATOR Unavailable [phone] Pritesh Santana MD Unavailable Unavailabl e Reason for Visit * Reason Onset Date Comments Provider Call Back 05/11/2012 Encounter Details Date Type Department Care Team Description 05/11/2012 Telephone Adult [address] [address] Paola Cooney MD Provider Call Back Social History Tobacco Use Types Packs/Day Years [...] encounter Miscellaneous Notes * Telephone Encounter - Clarita Liu - 05/11/2012 3:20 PM EDT [facility] returning Margaux call. Please call [phone] and ask for Pio. documented in this encounter Plan of Treatment Not on file documented as of this encounter Visit Diagnoses Not on filedocumented in this encounter Care Teams Tin Worker Relationship Specialty Start Date End Date Paola Cooney MD PCP - General 06/30/10 02/24/21 Medina Lemus MD PCP - General Internal Medicine 02/25/21 05/05/22 Yumiko Prakash MD [address] [place] [address] PCP - General Internal Medicine 05/06/22 Sylvie Groves NP [address] [place] [address] Specialist Nurse Practitioner Family 06/06/24 Pritesh Santana MD [address] [place] [address] Specialist Pulmonology 06/06/24 documented as of this encounter
--- OUTSIDE RECORDS SUMMARY | 2024-10-22 15:07 | XMS_ITS | Encounter Summary ---
Author Organization [facility] Address [address] [place] [address] Care Team Providers Care Self Pay Collector Name Role Phone Paola Cooney MD Primary Care Provider Medina Amaya MD Primary Care Provider Yumiko Jerome MD Primary Care Prov ider Sylvie Groves NP Unavailable [phone] Pritesh Santana MD Unavailable Unavailabl e Encounter Details Date Type Department Care Team Description 10/17/2020 Back Tender Report Medical Records [address] [place] [address] Jerald Dominguez MD Social History Tobacco Use [...] on filedocumented in this encounter Care Teams Self Pay Collector Relationship Specialty Start Date End Date Paola Cooney MD PCP - General 06/30/10 02/24/21 Medina Lemus MD PCP - General Internal Medicine 02/25/21 05/05/22 Yumiko Prakash MD [address] [place] [address] PCP - General Internal Medicine 05/06/22 Sylvie Groves NP [address] [place] [address] Specialist Nurse Practitioner Family 06/06/24 Pritesh Santana MD [address] [place] [address] Specialist Pulmonology 06/06/24 documented as of this encounter
--- OUTSIDE RECORDS SUMMARY | 2024-10-22 15:07 | XMS_ITS | Encounter Summary ---
Author Organization [facility] Address [address] [place] [address] Care Team Providers Care Divinity Professor Name Role Phone Paola Cooney MD Primary Care Provider Medina Amaya MD Primary Care Provider Yumiko Jerome MD Primary Care Prov ider Sylvie Groves MEDICAL CLERK Unavailable [phone] Pritesh Santana MD Unavailable Unavailabl e Reason for Visit * Reason Onset Date Comments Faxed Refill 04/09/2016 Encounter Details Date Type Department Care Team Description 04/09/2016 Refill Adult Medicine [address] [address] Paola Cooney MD Faxed Refill Social History [...] encounter Miscellaneous Notes * Telephone Encounter - Tala Campuzano - 04/09/2016 9:43 AM EDT Patient would like script to be: E-PRESCRIBED/FAXED TO PHARMACY WHEN WAS THE PATIENT'S LAST APPOINTMENT IN ADULT MEDICINE? 11/13/2015 WHEN WAS THE LAST TIME THE PATIENT SAW THEIR PCP? Same as above Does patient have an upcoming appointment? Yes 04/12/2016 (THE MEDICATION REQUESTED IS ON THE MED LIST ABOVE) All of the medications requested were on the CURRENT MEDS list Did you check the Pharmacy information above?: YES Patient wants: 30 -day supply Is this a mail order prescription request ? NO Patients current insurance carrier is: [place] / Plan: MEDICAID $0 UNLTD V/REF REQ. /Product Type: MEDICAID [id number] documented in this encounter Plan of Treatment Not on file documented as of this encounter Visit Diagnoses Not on filedocumented in this encounter Care Teams Divinity Professor Relationship Specialty Start Date End Date Paola Cooney MD PCP - General 06/30/10 02/24/21 Medina Lemus MD PCP - General Internal Medicine 02/25/21 05/05/22 Yumiko Prakash MD [address] [place] [address] PCP - General Internal Medicine 05/06/22 Sylvie Groves NP [address] [place] [address] Specialist Nurse Practitioner Family 06/06/24 Pritesh Santana MD [address] [place] [address] Specialist Pulmonology 06/06/24 documented as of this encounter
--- OUTSIDE RECORDS SUMMARY | 2024-10-22 15:07 | XMS_ITS | Encounter Summary ---
Author Organization [facility] Address [address] [place] [address] Care Team Providers Care Unmanned Aircraft Systems Roboticist Name Role Phone Paola Cooney MD Primary Care Provider Medina Amaya MD Primary Care Provider Yumiko Jerome MD Primary Care Prov ider Sylvie Groves NP Unavailable [phone] Pritesh Santana MD Unavailable Unavailabl e Encounter Details Date Type Department Care Team Description 08/19/2020 Black Puller Report Medical Records [address] [place] [address] Jerald Dominguez MD Social History Tobacco Use [...] on filedocumented in this encounter Care Teams Unmanned Aircraft Systems Roboticist Relationship Specialty Start Date End Date Paola Cooney MD PCP - General 06/30/10 02/24/21 Medina Lemus MD PCP - General Internal Medicine 02/25/21 05/05/22 Yumiko Prakash MD [address] [place] [address] PCP - General Internal Medicine 05/06/22 Sylvie Groves NP [address] [place] [address] Specialist Nurse Practitioner Family 06/06/24 Pritesh Santana MD [address] [place] [address] Specialist Pulmonology 06/06/24 documented as of this encounter
--- OUTSIDE RECORDS SUMMARY | 2024-10-22 15:07 | XMS_ITS | Encounter Summary ---
Author Organization [facility] Address [address] [place] [address] Care Team Providers Care Director Of Finance Name Role Phone Paola Cooney MD Primary Care Provider Medina Amaya MD Primary Care Provider Yumiko Jerome MD Primary Care Prov ider Sylvie Groves CYBER SECURITY ARCHITECT Unavailable [phone] Pritesh Santana MD Unavailable Unavailabl e Encounter Details Date Type Department Care Team Description 01/26/2019 Orders Only Medical Records [address] [place] [address] Paola Cooney MD Social History Tobacco Use Types Packs/Day [...] on file documented as of this encounter Procedures Procedure Name Priority Date/Time Associated Diagnosis Comments OUTSIDE VASCULAR STUDY Routine 01/23/2019 OUTSIDE VASCULAR STUDY Routine 01/23/2019 documented in this encounter Results * OUTSIDE VASCULAR STUDY (01/23/2019) Lissa Miner DPM CARDIOLOGY * OUTSIDE VASCULAR STUDY (01/23/2019) Paola Cooney MD CARDIOLOGY documented in this encounter Visit Diagnoses Not on filedocumented in this encounter Care Teams Director Of Finance Relationship Specialty Start Date End Date Paola Cooney MD PCP - General 06/30/10 02/24/21 Medina Lemus MD PCP - General Internal Medicine 02/25/21 05/05/22 Yumiko Prakash MD [address] [place] [address] PCP - General Internal Medicine 05/06/22 Sylvie Groves NP [address] [place] [address] Specialist Nurse Practitioner Family 06/06/24 Pritesh Santana MD [address] [place] [address] Specialist Pulmonology 06/06/24 documented as of this encounter
--- OUTSIDE RECORDS SUMMARY | 2024-10-22 15:07 | XMS_ITS | Encounter Summary ---
Author Organization [facility] Address [address] [place] [address] Care Team Providers Care Gas Engine Repairer Name Role Phone Paola Cooney MD Primary Care Provider Medina Amaya MD Primary Care Provider Yumiko Jerome MD Primary Care Prov ider Sylvie Groves NP Unavailable [phone] Pritesh Santana MD Unavailable Unavailabl e Encounter Details Date Type Department Care Team Description 09/15/2012 Industrial Psychology Professor Report Medical Records [address] [place] [address] Jayme Samuel, PA-C Social History Tobacco Use [...] on filedocumented in this encounter Care Teams Gas Engine Repairer Relationship Specialty Start Date End Date Paola Cooney MD PCP - General 06/30/10 02/24/21 Medina Lemus MD PCP - General Internal Medicine 02/25/21 05/05/22 Yumiko Prakash MD [address] [place] [address] [id number] PCP - General Internal Medicine 05/06/22 Sylvie Groves NP [address] [place] [address] 01020 Specialist Nurse Practitioner Family 06/06/24 Pritesh Santana MD [address] [place] [address] 8[address]80 Specialist Pulmonology 06/06/24 documented as of this encounter
--- OUTSIDE RECORDS SUMMARY | 2024-10-22 15:07 | XMS_ITS | Encounter Summary ---
Author Organization [facility] Address [address] [place] [address] Care Team Providers Care Medical Diagnostic Radiographer Name Role Phone Paola Cooney MD Primary Care Provider Medina Amaya MD Primary Care Provider Yumiko Jerome MD Primary Care Prov ider Sylvie Groves NP Unavailable [phone] Pritesh Santana MD Unavailable Unavailabl e Encounter Details Date Type Department Care Team Description 07/20/2016 [facility] Medical Records [address] [place] [address] Abstract, Provider Social History Tobacco Use Types [...] on filedocumented in this encounter Care Teams Medical Diagnostic Radiographer Relationship Specialty Start Date End Date Paola Cooney MD PCP - General 06/30/10 02/24/21 Medina Lemus MD PCP - General Internal Medicine 02/25/21 05/05/22 Yumiko Prakash MD [address] [place] [address] [phone] PCP - General Internal Medicine 05/06/22 Sylvie Groves NP [address] [place] [address]20 Specialist Nurse Practitioner [facility] 06/06/24 Pritesh Santana MD [address] [place] [address] 15291 Specialist Pulmonology 06/06/24 documented as of this encounter
--- OUTSIDE RECORDS SUMMARY | 2024-10-22 15:07 | XMS_ITS | Encounter Summary ---
Author Organization [facility] Address [address] [place] [address] Care Team Providers Care Process Designer Name Role Phone Paola Cooney MD Primary Care Provider Medina Amaya MD Primary Care Provider Yumiko Jerome MD Primary Care Prov ider Sylvie Groves GUT SNATCHER Unavailable [phone] Pritesh Santana MD Unavailable Unavailabl e Reason for Visit * Reason Onset Date Comments refill request 10/12/2018 Encounter Details Date Type Department Care Team Description 10/12/2018 Refill Adult Medicine [address] [address] Paola Cooney MD refill request Social History Tobacco Use Types Packs/Day Years [...] Telephone Encounter - Judit Hoyt M.A. - 10/13/2018 10:03 AM EST Script written and in patient warp picker * Telephone Encounter - Corrine Rodríguez - 10/13/2018 9:26 AM EST Pt checking on status of medication * Telephone Encounter - Judit Hoyt M.A. - 10/12/2018 2:05 PM EST Last fill / Controlled substance contract and last issue date of medication reviewed. Patient is due for medication. Lab Results Component Value Date URINEOXYCOD POSITIVE 01/11/2018 URBENZO NEGATIVE 01/11/2018 URAMPHETAMIN NEGATIVE 01/11/2018 URMARIJUANA NEGATIVE 01/11/2018 UROPIATES NEGATIVE 01/11/2018 URBARBITUATE NEGATIVE 01/11/2018 URCOCAINE NEGATIVE 01/11/2018 HYDROCODONE Negative 12/02/2016 Mass pat printed and in providers bin for review * Telephone Encounter - Lissa Hall - 10/12/2018 1:27 PM EST Patient would like script to be: PLACED IN PATIENT AIRCRAFT ENGINE TECHNICIAN TO BE PICKED UP WHEN WAS THE PATIENT'S LAST APPOINTMENT IN ADULT MEDICINE? 07/25/18 WHEN WAS THE LAST TIME THE PATIENT SAW THEIR PCP? 04/25/18 Does patient have an upcoming appointment? Yes 10/26/18 (THE MEDICATION REQUESTED IS ON THE MED LIST ABOVE) All of the medications requested were on the CURRENT MEDS list Did you check the Pharmacy information above?: NO Patient wants: 30 -day supply Is this a mail order prescription request ? NO If the refill is from a FAXED refill request what is the RX # listed on the fax? N/A Patients current insurance carrier is: [place] / Plan: MEDICAID $0 UNLTD V/REF REQ. /Product Type: MEDICAID [id number] documented in this encounter Plan of Treatment Not on file documented as of this encounter Visit Diagnoses Diagnosis Primary osteoarthritis of both knees Primary localized osteoarthrosis, lower leg Primary osteoarthritis of both shoulders documented in this encounter Care Teams Process Designer Relationship Specialty Start Date End Date Paola Cooney MD PCP - General 06/30/10 02/24/21 Medina Lemus MD PCP - General Internal Medicine 02/25/21 05/05/22 Yumiko Prakash MD [address] [place] [address] [phone] PCP - General Internal Medicine 05/06/22 Sylvie Groves NP [address] [place] [address] [phone] Specialist Nurse Practitioner Family 06/06/24 Pritesh Santana MD [address] [place] [address]87 Specialist Pulmonology 06/06/24 documented as of this encounter
--- OUTSIDE RECORDS SUMMARY | 2024-10-22 15:07 | XMS_ITS | Encounter Summary ---
Author Organization [facility] Address [address] [place] [address] Care Team Providers Care Piece Work Checker Name Role Phone Paola Cooney MD Primary Care Provider Medina Amaya MD Primary Care Provider Yumiko Jerome MD Primary Care Prov ider Sylvie Groves NP Unavailable [phone] Pritesh Santana MD Unavailable Unavailabl e Encounter Details Date Type Department Care Team Description 09/24/2020 Hospital Medical Records [address] [place] [address] Jerald Dominguez MD Social History Tobacco Use [...] on filedocumented in this encounter Care Teams Piece Work Checker Relationship Specialty Start Date End Date Paola Cooney MD PCP - General 06/30/10 02/24/21 Medina Lemus MD PCP - General Internal Medicine 02/25/21 05/05/22 Yumiko Prakash MD [address] [place] [address] [phone] PCP - General Internal Medicine 05/06/22 Sylvie Groves NP [address] [place] [address] Specialist Nurse Practitioner Family 06/06/24 Pritesh Santana MD [address] [place] [address] Specialist Pulmonology 06/06/24 documented as of this encounter
--- OUTSIDE RECORDS SUMMARY | 2024-10-22 15:07 | XMS_ITS | Encounter Summary ---
Author Organization [facility] Address [address] [place] [address] Care Team Providers Care Vehicle Damage Appraiser Name Role Phone Paola Cooney MD Primary Care Provider Medina Amaya MD Primary Care Provider Yumiko Jerome MD Primary Care Prov ider Sylvie Groves WHEEL ROLLER Unavailable [phone] Pritesh Santana MD Unavailable Unavailabl e Encounter Details Date Type Department Care Team Description 10/09/2015 Pt. Non Urgent Medic al Question Adult Medicine [address] [address] Paola Cooney MD Social History Tobacco Use [...] as of this encounter Progress Notes * Tala Campuzano L.P.N. - 10/09/2015 1:19 PM ESTFrom: Surinder Doss To: Paola Cooney MD Sent: 10/09/2015 12:42 PM EST Subject: Question regarding OUTSIDE LAB I have a question about OUTSIDE LAB resulted on 09/16/15. What is the result of this exam Dra. Cooney? ? documented in this encounter Plan of Treatment Not on file documented as of this encounter Visit Diagnoses Not on filedocumented in this encounter Care Teams Vehicle Damage Appraiser Relationship Specialty Start Date End Date Paola Cooney MD PCP - General 06/30/10 02/24/21 Medina Lemus MD PCP - General Internal Medicine 02/25/21 05/05/22 Yumiko Prakash MD [address] [place] [address] PCP - General Internal Medicine 05/06/22 Sylvie Groves NP [address] [place] [address] Specialist Nurse Practitioner Family 06/06/24 Pritesh Santana MD [address] [place] [address] Specialist Pulmonology 06/06/24 documented as of this encounter
--- OUTSIDE RECORDS SUMMARY | 2024-10-22 15:07 | XMS_ITS | Encounter Summary ---
Author Organization [facility] Address [address] [place] [address] Care Team Providers Care Non Destructive Testing Supervisor Name Role Phone Paola Cooney MD Primary Care Provider Medina Amaya MD Primary Care Provider Yumiko Jerome MD Primary Care Prov ider Sylvie Groves STUFFER Unavailable [phone] Pritesh Santana MD Unavailable Unavailabl e Encounter Details Date Type Department Care Team Description 11/01/2020 [facility] Adult Medicine [address] [address] Paola Cooney MD Social History Tobacco Use Types Packs/Day Years Used Date Smoking Tobacco: Never Smokeless Tobacco: Never Alcohol Use Standard Drinks/Week Comments Yes 0 (1 standard drink = 0.6 oz pur e alcohol) Social occasions Sex Assigned at Date Recorded Male 03/07/2020 10:51 AM EDT Job Start Date Occupation Industry Not on file Not on file Not on file COVID-19 Exposure Response Date Recorded In the last month, have you been in contact with someone who was confirmed or suspected to have Coronavirus / COVID-19? No / Unsure 11/03/2020 10:07 AM EST documented as of this encounter Miscellaneous Notes * Telephone Encounter - Paola Cooney MD - 11/03/2020 11:01 AM EST Reviewed MassPAT. Patient was seen in office today for hospital follow-up and I gave him his prescription. * Telephone Encounter - Michelle He M.A. - 11/03/2020 8:59 AM EST ROSALINO 09/18/2020 telehealth F/U appt 01/06/2021 Lab Results Component Value Date URBENZO NONE DETECTED 02/12/2020 UROPIATES NONE DETECTED 02/12/2020 URBARBITUATE NONE DETECTED 02/12/2020 PAINAMPHETAM NONE DETECTED 02/12/2020 PAINCOCAINE NONE DETECTED 02/12/2020 PAINCANNABIN NONE DETECTED 02/12/2020 Pt due for refill Masspat in bin documented in this encounter Plan of Treatment Not on file documented as of this encounter Visit Diagnoses Diagnosis Primary osteoarthritis of both knees Primary localized osteoarthrosis, lower leg Primary osteoarthritis of both shoulders documented in this encounter Care Teams Non Destructive Testing Supervisor Relationship Specialty Start Date End Date Paola Cooney MD PCP - General 06/30/10 02/24/21 Medina Lemus MD PCP - General Internal Medicine 02/25/21 05/05/22 Yumiko Prakash MD [address] [place] [address] PCP - General Internal Medicine 05/06/22 Sylvie Groves NP [address] [place] [address] Specialist Nurse Practitioner Family 06/06/24 Pritesh Santana MD [address] [place] [address] Specialist Pulmonology 06/06/24 documented as of this encounter
--- OUTSIDE RECORDS SUMMARY | 2024-10-22 15:07 | XMS_ITS | Encounter Summary ---
Author Organization [facility] Address [address] [place] [address] Care Team Providers Care Design Drafter Name Role Phone Paola Cooney MD Primary Care Provider Medina Amaya MD Primary Care Provider Yumiko Jerome MD Primary Care Prov ider Sylvie Groves NP Unavailable [phone] Pritesh Santana MD Unavailable Unavailabl e Encounter Details Date Type Department Care Team Description 06/29/2019 Medical Marijuana Card Medical Records [address] [place] [address] Abstract, Provider Social History Tobacco Use Types [...] on filedocumented in this encounter Care Teams Design Drafter Relationship Specialty Start Date End Date Paola Cooney MD PCP - General 06/30/10 02/24/21 Medina Lemus MD PCP - General Internal Medicine 02/25/21 05/05/22 Yumiko Prakash MD [address] [place] [address] [phone] PCP - General Internal Medicine 05/06/22 Sylvie Groves NP [address] [place] [address] Specialist Nurse Practitioner [facility] 06/06/24 Pritesh Santana MD [address] [place] [address] Specialist Pulmonology 06/06/24 documented as of this encounter
--- OUTSIDE RECORDS SUMMARY | 2024-10-22 15:07 | XMS_ITS | Encounter Summary ---
Author Organization [facility] Address [address] [place] [address] Care Team Providers Care Laundry Tub Maker Name Role Phone Paola Cooney MD Primary Care Provider Medina Amaya MD Primary Care Provider Yumiko Jerome MD Primary Care Prov ider Sylvie Groves NP Unavailable [phone] Pritesh Santana MD Unavailable Unavailabl e Encounter Details Date Type Department Care Team Description 10/01/2020 Python Programmer Report Medical Records [address] [place] [address] Jerald Dominguez MD Social History Tobacco Use [...] on filedocumented in this encounter Care Teams Laundry Tub Maker Relationship Specialty Start Date End Date Paola Cooney MD PCP - General 06/30/10 02/24/21 Medina Lemus MD PCP - General Internal Medicine 02/25/21 05/05/22 Yumiko Prakash MD [address] [place] [address] PCP - General Internal Medicine 05/06/22 Sylvie Groves NP [address] [place] [address] Specialist Nurse Practitioner Family 06/06/24 Pritesh Santana MD [address] [place] [address] Specialist Pulmonology 06/06/24 documented as of this encounter
--- OUTSIDE RECORDS SUMMARY | 2024-10-22 15:07 | XMS_ITS | Clinical Summary ---
Author Organization [employer] Address [address] [facility] [address] [place] [address] Care Team Providers Care Territory Sales Executive Name Role Phone Unavailable Primary Care Provider [...]
--- OUTSIDE RECORDS SUMMARY | 2024-10-22 15:07 | XMS_ITS | Encounter Summary ---
Author Organization [facility] Address [address] [place] [address] Care Team Providers Care Transition Nurse Name Role Phone Paola Cooney MD Primary Care Provider Medina Amaya MD Primary Care Provider Yumiko Jreome MD Primary Care Prov ider Sylvie Groves OPERATIONS OFFICER Unavailable [phone] Pritesh Santana MD Unavailable Unavailabl e Reason for Visit * Reason Onset Date Comments Faxed Refill 03/09/2019 Encounter Details Date Type Department Care Team Description 03/09/2019 Refill Adult Medicine [address] [address] Paola Cooney MD Faxed Refill Social History [...] Telephone Encounter - Judit Hoyt M.A. - 03/09/2019 11:16 AM EDT Lab Results Component Value Date NA 141 01/22/2019 K 4.1 01/22/2019 CO2 27 01/22/2019 CL 105 01/22/2019 BUN 18 01/22/2019 CREAT 0.75 01/22/2019 GLU 110 01/22/2019 CA 9.2 01/22/2019 GFR > 60 01/22/2019 Please review as care team is out of office Thank You * Telephone Encounter - Nidia Reagan - 03/09/2019 10:07 AM EDT Patient would like script to be: E-PRESCRIBED/FAXED TO PHARMACY WHEN WAS THE PATIENT'S LAST APPOINTMENT IN ADULT MEDICINE? 01-22-2019 WHEN WAS THE LAST TIME THE PATIENT SAW THEIR PCP? 12-28-2018 Does patient have an upcoming appointment? 05-03-2019 (THE MEDICATION REQUESTED IS ON THE MED LIST ABOVE) All of the medications requested were on the CURRENT MEDS list Did you check the Pharmacy information above?: YES Patient wants: 30 -day supply Is this a mail order prescription request ? NO If the refill is from a FAXED refill request what is the RX # listed on the fax? [id number] & [id number] & [id number] Patients current insurance carrier is: [place] / [place] / Product Type: MEDICARE [id number] documented in this encounter Plan of Treatment Not on file documented as of this encounter Visit Diagnoses Diagnosis Low back pain radiating to right leg Lumbago Primary osteoarthritis of both knees Primary localized osteoarthrosis, lower leg Loose body in knee, left documented in this encounter Care Teams Transition Nurse Relationship Specialty Start Date End Date Paola Cooney MD PCP - General 06/30/10 02/24/21 Medina Lemus MD PCP - General Internal Medicine 02/25/21 05/05/22 Yumiko Prakash MD [address] [place] [address] PCP - General Internal Medicine 05/06/22 Sylvie Groves NP [address] [place] [address]20 Specialist Nurse Practitioner Family 06/06/24 Pritesh Santana MD [address] [place] [address] Specialist Pulmonology 06/06/24 documented as of this encounter
--- OUTSIDE RECORDS SUMMARY | 2024-10-22 15:07 | XMS_ITS | Encounter Summary ---
Author Organization [facility] Address [address] [place] [address] Care Team Providers Care Escalator Mechanic Name Role Phone Paola Cooney MD Primary Care Provider Medina Amaya MD Primary Care Provider Yumiko Jerome MD Primary Care Prov ider Sylvie Groves NP Unavailable [phone] Pritesh Santana MD Unavailable Unavailabl e Encounter Details Date Type Department Care Team Description 08/26/2014 SECURITY GUARD SUPERVISOR/MassPat Report Medical Records [address] [place] [address] Abstract, Provider Social History Tobacco Use Types [...] on filedocumented in this encounter Care Teams Escalator Mechanic Relationship Specialty Start Date End Date Paola Cooney MD PCP - General 06/30/10 02/24/21 Medina Lemus MD PCP - General Internal Medicine 02/25/21 05/05/22 Yumiko Prakash MD [address] [place] [address] [phone] PCP - General Internal Medicine 05/06/22 Sylvie Groves NP [address] [place] [address] Specialist Nurse Practitioner [facility] 06/06/24 Pritesh Santana MD [address] [place] [address] Specialist Pulmonology 06/06/24 documented as of this encounter
--- OUTSIDE RECORDS SUMMARY | 2024-10-22 15:07 | XMS_ITS | Encounter Summary ---
Author Organization [facility] Address [address] [place] [address] Care Team Providers Care Pocket Maker Name Role Phone Medina Lemus MD Primary Care Provider Yumiko Jerome MD Primary Care Prov ider Sylvie Groves NP Unavailable Pritesh Santana MD Unavailable Unavailabl e Encounter Details Date Type Department Care Team Description 03/06/2021 [facility] Medical Records [address] [place] [address] Abstract, Provider Social History Tobacco Use Types [...] on filedocumented in this encounter Care Teams Pocket Maker Relationship Specialty Start Date End Date Medina Lemus MD PCP - General Internal Medicine 02/25/21 05/05/22 Yumiko Prakash MD [address] [place] [address] PCP - General Internal Medicine 05/06/22 Sylvie Groves NP [address] [place] [address] [place] [address] Specialist Nurse Practitioner Family 06/06/24 Pritesh Santana MD [address] [place] [address] Specialist Pulmonology 06/06/24 documented as of this encounter
--- OUTSIDE RECORDS SUMMARY | 2024-10-22 15:07 | XMS_ITS | Encounter Summary ---
Author Organization [facility] Address [address] [place] [address] Care Team Providers Care Sales Operations Director Name Role Phone Medina Lemus MD Primary Care Provider Yumiko Jerome MD Primary Care Prov ider Sylvie Groves SEAL EXTRUSION OPERATOR Unavailable [phone] Pritesh Santana MD Unavailable Unavailabl e Reason for Visit * Reason Comments E-prescribe Rx Request Encounter Details Date Type Department Care Team Description 02/10/2022 Refill Adult Medicine [address] [address] Medina Lemus MD E-prescribe Rx Request Social History Tobacco Use Types Packs/Day Years [...] Miscellaneous Notes * Telephone Encounter - Clarita Crain M.A. - 02/11/2022 4:17 PM EDT Lab Results Component Value Date NA 142 08/21/2021 K 5.1 08/21/2021 CO2 36 08/21/2021 CL 104 08/21/2021 BUN 18 08/21/2021 CREAT 0.82 08/21/2021 GLU 99 08/21/2021 CA 9.8 08/21/2021 GFR > 60 08/21/2021 ' Last appt with pcp 12/15/21 * Telephone Encounter - Marisela Hemanth - 02/10/2022 8:18 AM EDT Patient would like script to be: E-PRESCRIBED/FAXED TO PHARMACY WHEN WAS THE PATIENT'S LAST APPOINTMENT IN ADULT MEDICINE? 12/15/21 WHEN WAS THE LAST TIME THE PATIENT SAW THEIR PCP? Same as above Does patient have an upcoming appointment? Yes 07/26/22 (THE MEDICATION REQUESTED IS ON THE MED [...] N/A Patients current insurance carrier is: Payor: [facility] / Plan: [facility] / Product Type: HMO [id number] documented in this encounter Plan of Treatment Not on file documented as of this encounter Visit Diagnoses Diagnosis Primary osteoarthritis of both knees Primary localized osteoarthrosis, lower leg documented in this encounter Care Teams Sales Operations Director Relationship Specialty Start Date End Date Medina Lemus MD PCP - General Internal Medicine 02/25/21 05/05/22 Ruth Diego, Yumiko Shah MD [address] [place] [address] PCP - General Internal Medicine 05/06/22 Sylvie Groves NP [address] [place] [address] Specialist Nurse Practitioner Family 06/06/24 Pritesh Santana MD [address] [place] [address] Specialist Pulmonology 06/06/24 documented as of this encounter
--- OUTSIDE RECORDS SUMMARY | 2024-10-22 15:07 | XMS_ITS | Encounter Summary ---
Author Organization [facility] Address [address] [place] [address] Care Team Providers Care Oracle Financials Developer Name Role Phone Paola Cooney MD Primary Care Provider Medina Amaya MD Primary Care Provider Yumiko Jerome MD Primary Care Prov ider Sylvie Groves NP Unavailable Pritesh Santana MD Unavailable Unavailabl e Encounter Details Date Type Department Care Team Description 03/22/2017 [facility] Medical Records [address] [place] [address] Abstract, Provider Social History Tobacco Use Types [...] on filedocumented in this encounter Care Teams Oracle Financials Developer Relationship Specialty Start Date End Date Paola Cooney MD PCP - General 06/30/10 02/24/21 Medina Lemus MD PCP - General Internal Medicine 02/25/21 05/05/22 Yumiko Prakash MD [address] [place] [address] [phone] PCP - General Internal Medicine 05/06/22 Sylvie Groves NP [address] [place] [address] Specialist Nurse Practitioner [facility] 06/06/24 Pritesh Santana MD [address] [place] [address] Specialist Pulmonology 06/06/24 documented as of this encounter
--- OUTSIDE RECORDS SUMMARY | 2024-10-22 15:07 | XMS_ITS | Encounter Summary ---
Author Organization [facility] Address [address] [place] [address] Care Team Providers Care Light Rail Operator Name Role Phone Yumiko Prakash MD Primary Care Prov ider Sylvie Groves CRM MARKETING ANALYST Unavailable [phone] Pritesh Santana MD Unavailable Unavailabl e Encounter Details Date Type Department Care Team Description 08/31/2022 Colorectal Surgeon Report Medical Records [address] [place] [address] Pritesh Santana MD Social History Tobacco Use Types Packs/Day [...] on filedocumented in this encounter Care Teams Light Rail Operator Relationship Specialty Start Date End Date Yumiko Prakash MD [address] [place] [address] [phone] PCP - General Internal Medicine 05/06/22 Sylvie Groves NP [address] [place], [place] [phone] Specialist Nurse Practitioner Family 06/06/24 Pritesh Santana MD [address] [place] [address] Specialist Pulmonology 06/06/24 documented as of this encounter
--- OUTSIDE RECORDS SUMMARY | 2024-10-22 15:07 | XMS_ITS | Encounter Summary ---
Author Organization [facility] Address [address] [place] [address] Care Team Providers Care Building Code Inspector Name Role Phone Paola Cooney MD Primary Care Provider Medina Amaya MD Primary Care Provider Yumiko Jerome MD Primary Care Prov ider Sylvie Groves NP Unavailable [phone] Pritesh Santana MD Unavailable Unavailabl e Encounter Details Date Type Department Care Team Description 10/24/2019 Audit Clerks Supervisor Report Medical Records [address] [place] [id number] Jerald Dominguez MD Social History Tobacco Use [...] on filedocumented in this encounter Care Teams Building Code Inspector Relationship Specialty Start Date End Date Paola Cooney MD PCP - General 06/30/10 02/24/21 Medina Lemus MD PCP - General Internal Medicine 02/25/21 05/05/22 Yumiko Prakash MD [address] [place] [id number] PCP - General Internal Medicine 05/06/22 Sylvie Groves NP [address] [place] [address] Specialist Nurse Practitioner Family 06/06/24 Pritesh Santana MD [address] [place] [address] Specialist Pulmonology 06/06/24 documented as of this encounter
--- OUTSIDE RECORDS SUMMARY | 2024-10-22 15:07 | XMS_ITS | Continuity of Care Document ---
Author Organization [facility] Address [address] [address],[address] [place] [address] Phone Care Team Providers Care Voice Studies Director Name Role Phone Z-Converted, Provider Unavailable Unavailabl [...] Date Provider Providers Copied on Encounter [facility], [address] [place] [address],[facility] [address], [place], [place], [id number], tel:[phone] Converted Locations No Information 8 Z-Convert ed Provider. . Norbert [facility], [address] [address],[address], [place], [place], [id number], [place] tel:[phone] [facility] Pain in joint involving lower legBackache, unspecifiedEdem aCough 8 Z-Convert ed Provider. . [facility], [address] [place] [address],[address], [place], [place], [id number], tel:[phone] Converted Locations No Information 8 Z-Convert ed Provider. . [facility], [address], [place], [place], [id number], [place] tel:[phone] [facility] Unspecified essential hypertension Jun- 0 8 Z-Convert ed Provider. . [facility], [address] [facility] [address] [facility], [place], [place], [id number], [place] tel:[phone] Converted Locations No Information 8 Dobles Lissa . [address], [place], [id number] . tel:[phone] [facility], [address], [place], [place], [id number], [place] tel:[phone] [facility] Urinary frequency 8 Dobles Lissa . [address], [place], [id number] . tel:[phone] [facility], [address], [place], [place], [id number], [place] tel:[phone] [facility] Unspecified chest pain 8 Z-Convert ed [...]
== END 2024-10-22 14:42 | disposition home or self-care (01) ==
PROVIDERS: PCP Internal Medicine; Visit Provider Physician Assistant
DX: M17.2 Bilateral post-traumatic osteoarthritis of knee (principal)
CPT/HCPCS: 99203; G2211

== ENCOUNTER → 2024-10-22 14:00 | Outpatient (BNV) | payer OTHER, SELFPAY | PROVIDERS: Visit Provider Radiology Diagnostic Radiology | DX: M17.11 Unilateral primary osteoarthritis, right knee (principal) | CPT/HCPCS: 73562 ==

== ENCOUNTER 2024-11-05 08:54 | Outpatient (AMB) | payer OTHER, SELFPAY ==
--- NOTE | 2024-11-05 09:09 | A.OFFVIS_ITS ---
Vital Signs 11/05/24 09:15 Height 5 ft 8 in Weight 290 lb BMI 44.1 Intake Visit Reasons: Newprob-left elbow pain Intake Note: Surinder is a 54 year old right hand dominant male who presents today for an evaluation of left elbow pain. Patient reports his pain has been present for months. Denies injury. His pain is constant and increases with stretching out his arm or lifting. No numbness or tingling. No other tx. Allergies No Known Allergies Allergy (Verified 11/05/24 09:10) Medication List - Last Reconciled 11/05/24 by Surendra Yo PA-C acetaminophen (Tylenol Extra Strength) 500 - 1,000 mg (1 - 2 x 500 mg) PO Q6H PRN amlodipine 5 mg PO QAM atenolol 50 mg PO DAILY duloxetine 60 mg PO BID duloxetine 30 mg PO QAM fexofenadine ([place] Allergy) 60 mg PO Q12H ibuprofen 600 mg PO Q6H PRN HPI HPI Newprob-left elbow pain: Details: 54-year-old gentleman presents to the office today for left elbow pain. He did have an accident in 1996 where he sustained a left supracondylar fracture. He states the pain is not along the humerus rather it is in the elbow along the lateral aspect. He has pain with lifting pushing pulling or carrying. He has some mild numbness and tingling. No treatment to date. [facility] Medical History Liver fibrosis Steatosis, liver Lower extremity edema Hx of renal calculi Carpal tunnel syndrome Osteoarthritis GERD (gastroesophageal reflux disease) Hypertension Depression Migraine Sleep apnea Surgical History History of sleeve gastrectomy History of varicose vein ligation Morbid obesity History of bunionectomy of left great toe Family History Father Arthritis Mother No problems noted. Brother No problems noted. Sister No problems noted. Sister No problems noted. Sister No problems noted. Sister No problems noted. Sister No problems noted. Son No problems noted. Son No problems noted. Son No problems noted. Son No problems noted. 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 No erythema or swelling. ROM full without pain. Tenderness over the lateral epicondyle and pain with resisted wrist extension. NVI. Results Reviewed Results Reviewed: X-rays of the left elbow / humerus obtained in the office today show evidence of healed fracture along with some degenerative joint changes of the elbow. Assessment & Plan Assessment & Plan (1) Left lateral epicondylitis: Code(s): M77.12 - Lateral epicondylitis, left elbow Category: Medical Plan: We discussed options today which include occupational therapy and modification of activities. He deferred on formal physical therapy at this time and was given a handout for home exercise program. I recommend anti-inflammatory use. If symptoms persist or worsen he can contact our office for a steroid injection otherwise follow up as needed. Orders: Orders XR humerus LT Today R52 - Pain, unspecified Coding Level of Care Code Est Pt Level 3 (61822) Complex EM visit Add On G2211 Diagnoses Left lateral epicondylitis M77.12
[2024-11-05 09:15] VITALS: BMI 44.1
--- OUTSIDE RECORDS SUMMARY | 2024-11-05 09:24 | XMS_ITS | Encounter Summary ---
Author Organization [employer] [facility] Address [address] [place] [address] Care Team Providers Care Gerentological Physiotherapist Name Role Phone Unavailable Primary Care Provider Unavailabl e Encounter Details Date Type Department Care Team (Latest Contact Info) Description 05/15/2019 Abstract [facility] CONVERSIONS Dental, Provider, DDS Social History Tobacco Use Types Packs/Day Years Used Date Smoking Tobacco: Never Assessed Sex and Gender Information Value Date Recorded Sex Assigned at Male 07/12/2022 10:25 AM EDT Legal Sex Male 10:25 AM EDT Gender Identity Not on file Sexual Orientation Not on file documented as of this encounter Plan of Treatment Upcoming Encounters Date Type Department Care Team (Late st Contact Info) Description 11/09/2024 10:30 AM EST Medication Management [facility] MEDICINE [address] [place] [address] documented as of this encounter Visit Diagnoses Not on filedocumented in this encounter
--- OUTSIDE RECORDS SUMMARY | 2024-11-05 09:24 | XMS_ITS | Clinical Summary ---
Author Organization [employer] Address [address] [place] [address] Care Team Providers Care Parts Cataloguer Name Role Phone Unavailable Primary Care Provider Unavailabl e Social History Tobacco Use Types Packs/Day Years Used Date Smoking Tobacco: Never Assessed Sex and Gender Information Value Date Recorded Sex Assigned at Male 07/12/2022 10:25 AM EDT Legal Sex Male 10:25 AM EDT Gender Identity Not on file Sexual Orientation Not on file Plan of Treatment Upcoming Encounters Date Type Department Care Team ([facility] st Contact Info) Description 11/09/2024 10:30 AM EST Medication Management [facility] [address] [place] [address] Health Maintenance Due Date Last Done Comments CT Colonography 1972 Colonoscopy 1972 Colorectal Cancer Screening 1972 Depression Screening 1972 FIT DNA/Cologuard 1972 FIT 1972 FOBT 1972 HIV Screening 1972 Lipid Panel 1972 SDOH Screening 1972 Sigmoidoscopy 1972 Alcohol/Substance Use Screening 1984 Tobacco Screening 1984 Family Planning (PISQ) 02/17/1987 Hepatitis C Screening 02/17/1990 DTaP/Tdap/Td Vaccines (1 - Tdap) 02/17/1991 Hepatitis [...]
--- OUTSIDE RECORDS SUMMARY | 2024-11-05 09:25 | XMS_ITS | Clinical Summary ---
Author Organization [address] Address [address] [place] [address] Phone Care Team Providers Care Driver'S License Examiner Name Role Phone Yumiko Michelle MD Primary Care Prov ider Allergies No known active allergies Medications celecoxib (CeleBREX) 200 mg capsule Take 1 Capsule by mouth 2 times daily as needed for Pain. 4 Active docusate sodium (COLACE) 250 mg capsule Take 1 Capsule by mouth daily as needed for Constipation. 4 Active capsaicin (Zostrix) 0.033 % cream Apply 4 g topically 3 times daily as needed (PAIN).Apply 4 g topically 3 times daily as needed (PAIN). 100 g 2 5 Active diclofenac (VOLTAREN) 1 % topical gel Apply 1 Dose topically 2 (two) times a day. 100 g 2 5 Active amLODIPine (NORVASC) 5 mg tablet Take 1 tablet (5 mg total) by mouth 1 (one) time each day. 90 each 3 5 10/23/19 26 Active atenoloL (TENORMIN) 50 mg tablet Take 1 tablet (50 mg total) by mouth 1 (one) time each day. 90 each 3 5 10/23/19 26 Active DULoxetine (CYMBALTA) [address] capsule Take 1 capsule (30 mg total) by mouth 1 (one) time each day. 90 capsule 3 5 10/23/19 26 Active fexofenadine (EDDY) 60 mg tablet Take 1 tablet (60 mg total) by mouth 1 (one) time each day. 90 tablet 3 5 10/23/19 26 Active pantoprazole (PROTONIX) 40 mg EC tablet Take 1 tablet (40 mg total) by mouth 1 (one) time each day. 90 tablet 1 5 10/23/19 26 Active atenoloL (TENORMIN) 50 mg tablet Take 1 tablet (50 mg total) by mouth 1 (one) time each day. 4 10/23/19 Discontinu ed(Reorder ) amLODIPine (NORVASC) 5 mg tablet Take 1 tablet (5 mg total) by mouth 1 (one) time each day. 10/23/19 Discontinu ed(Reorder ) pantoprazole (PROTONIX) 40 mg EC tablet Take 1 tablet (40 mg total) by mouth 1 (one) time each day. 4 10/23/19 Discontinu ed(Reorder ) capsaicin (Zostrix) 0.033 % cream Apply 4 g topically 3 times daily as needed (PAIN). 4 10/23/19 Discontinu ed(Reorder ) diclofenac (VOLTAREN) 1 % topical gel Apply 1 Dose topically 2 (two) times a day. 10/23/19 Discontinu ed(Reorder ) DULoxetine (CYMBALTA) [address] capsule Take 1 capsule (30 mg total) by mouth 1 (one) time each day. 90 capsule 4 10/23/19 Discontinu ed(Reorder ) fexofenadine (EDDY) 60 mg tablet Take 1 tablet (60 mg total) by mouth 1 (one) time each day. 90 tablet 4 10/23/19 Discontinu ed(Reorder ) Active Problems Problem Noted Date Diagnosed Date Seasonal allergies 06/06/2024 Hypercholesterolemia 06/22/2023 Sweating increase 09/08/2021 Chronic, continuous use of opioids 05/03/2019 Morbid obesity 12/23/2016 Assessment & Plan (10/23/2024 11:07 AM EST): Healthy diet, regular exercise, burning more calories than intake were discussed with the patient. BMI is 44.7. Umbilical hernia without obstruction and without gangrene 06/02/2016 Meralgia paresthetica of right side 11/04/2014 Overview (08/14/2024): Per Dr. Ruiz note 10/22/14 OA (osteoarthritis) of knee 01/18/2013 Overview (08/14/2024): Xrays mod OA 11/2011 DJD of shoulder 01/18/2013 Overview (08/14/2024): Mild on xray 2011 Obstructive sleep apnea 10/30/2012 Vitamin D deficiency 08/10/2012 Essential hypertension, benign 06/14/2011 Assessment & Plan (10/23/2024 11:07 AM EST): Well controlled today 122/74. We will continue amlodipine, atenolol. Instructed to follow a low salt diet, and exercise regularly. Orders: Comprehensive metabolic panel; Future Lipid panel with reflex to direct LDL; Future Low testosterone 06/14/2011 Overview (08/14/2024): Previously saw Dr. Samuel ([facility]) and used testosterone gel; DC'd about 2013 Arthralgia of multiple sites 06/14/2011 Overview (08/14/2024): Low back, both knees, ankles, left shoulder Diagnosed with RA prev PCP but no inflammatory changes observed in joints today Will get previous records Fibromyalgia 06/14/2011 Overview (08/14/2024): Per patient. Dx from previous PCP GERD (gastroesophageal reflux disease) 1 Assessment & Plan (10/23/2024 11:07 AM EST): Well-controlled on pantoprazole. Will continue same medication. Recommended to avoid taking NSAIDs very frequently. Migraine 06/14/2011 Depression with anxiety 06/14/2011 Overview (08/14/2024): Sees Mecca Campuzano therapist, Quique Henderson prescriber at [facility] (part of [facility]) in [place]. CTS (carpal tunnel syndrome) 06/14/2011 Encounters Date Type Department Care Team Description 10/23/2024 9:30 AM EST Office Visit Adult Medicine [address] [phone] Yumiko Michelle MD Encounter for general adult medical examination without abnormal findings (Primary Dx); Essential hypertension, benign; Gastroesophageal reflux disease, unspecified whether esophagitis present; Morbid obesity (CMS/HCC); Advance care planning from Last 3 Months Immunizations Name Administration Dates Next Due Hepatitis B (Tvmxpzu-F-Rpucf , Recombivax HB-Adult) 19yo and older 04/08/2014,08/31/2013,08/01/2013 [...] History Surgery Date Site/Laterality Comments FOOT SURGERY 2010 PROCEDURE: HISTORICAL FOOT SURGERY; COMMENT: [facility]- left metatarsal repair BARIATRIC SURGERY 10/09/2020 PROCEDURE: [place] LAPS GSTRC RSTRICTIV PX LONGITUDINAL GASTRECTOMY; COMMENT: Dr. Dominguez [facility] Medical History Medical History Date Comments Arthralgia of multiple sites 06/14/2011 DX: Arthralgia of multiple sites Essential hypertension, benign 06/14/2011 D X:Essential hypertension, benign Hypercholesterolemia 06/14/2011 DX:Hypercho lesterolemia Low testosterone 06/14/2011 DX:Low testoste patrick CTS (carpal tunnel syndrome) 06/14/2011 DX: CTS (carpal tunnel syndrome) Depression with anxiety 06/14/2011 DX:Depre ssion with anxiety; COMMENT: Sees Mecca Campuzano therapist, Quique Henderson prescriber at [facility] (part of [facility]) in [place]. Migraine 06/14/2011 DX:Migraine GERD (gastroesophageal reflux disease) 06/14/2011 DX:GERD (gastroesophageal reflux disease) Fibromyalgia 06/14/2011 DX:Fibromyalgia; COMMENT: Per patient. Dx from previous PCP Vitamin D deficiency 08/10/2012 DX:Vitamin D deficiency Sleep apnea 10/30/2012 DX:Sleep apnea Morbid obesity (CMS/HCC) 12/23/2016 DX:Morb id obesity (HCC) Chronic, continuous use of opioids 05/03/2019 DX:Chronic, [...] Date Smoking Tobacco: Never Smokeless Tobacco: Never Tobacco Cessation:Counseling Given: Not Answered Alcohol Use Standard Drinks/Week Comments Yes 0 (1 standard drink = 0.6 oz pur e alcohol) Housing Instability Answer Date Recorde d Are you worried that in the next 2 months you may not have stable housing? No 10/23/2024 Food Access & Nutrition Answer Date Rec orded Do you have access to a vari ety of food including fruits and vegetables? Yes 10/23/2024 Access to Healthcare Answer Date Record ed Within the last 3 months, ho w many times did you visit the emergency department for your medical care? 1 10/23/2024 Health Literacy Answer Date Recorded How often do you need to hav e someone help you when you read instructions, pamphlets, or other written material from your doctor or pharmacy? Never 10/23/2024 Caregiver: How often do you need to have someone help you when you read instructions, pamphlets, or other written material from your doctor or pharmacy? Not on file 10/23/2024 Financial Risk Answer Date Recorded How hard is it for you to pa y for the very basics like food, housing, medical care, and air conditioning / heating? Not very hard 10/23/2024 Transportation Answer Date Recorded Has the lack of transportati on kept you from meetings, work, or from getting things needed for daily living? No Has the lack of transportati on kept you from medical appointments or from getting medications? No 10/23/2024 Social Isolation Answer Date Recorded How often do you feel lonely or isolated from th ose around you? Never 10/23/2024 Food Risk Answer Date Recorded Within the past 12 months we worried whether our food would run out before we got money to buy more. Not on file 10/23/2024 Within the past 12 months th e food we bought just didn't last and we didn't have money to get more. Never true 10/23/2024 Dependent Care Answer Date Recorded Do you need help finding or paying for care for your loved ones. For example, early childhood special educator or elderly care for an older adult? No 10/23/2024 Education Answer Date Recorded Do you think completing more education or training, like finishing a GED, going to college, or learning a trade, would be helpful for you? No 10/23/2024 Employment and Income Answer Date Recor ded During the last four weeks, have you been actively looking for work? No 10/23/2024 Living Situation Answer Date Recorded What is your living situation? 0 10/23/2024 Sex and Gender Information Value Date Recorded Sex Assigned at Male 09/20/2024 3:09 PM EST Legal Sex Male 2:57 AM EST Gender Identity Male 09/20/2024 3:09 PM EST Sexual Orientation Straight 09/20/2024 3: 09 PM EST Obstetrics History Last Filed Vital Signs Vital Sign Reading Time Taken Comments Blood Pressure 122/74 10/23/2024 9:28 AM EST Pulse 60 10/23/2024 9:28 AM EST Temperature 36.2 ??C (97.1 ??F) 10/23/2024 9:28 AM ES T Respiratory Rate 16 10/23/2024 9:28 AM EST Oxygen Saturation - - Inhaled Oxygen Concentration - - Weight 133 kg (294 lb) 10/23/2024 9:28 AM EST Height 172.7 cm (5' 8 ) 06/06/2024 2:20 PM EDT Body Mass Index 44.7 06/06/2024 2:20 PM EDT Plan of Treatment Upcoming Encounters Date Type Department Care Team (Late st Contact Info) Description 04/23/2025 8:30 AM EDT Office Visit Adult Medicine [address] [phone] Yumiko Michelle MD [address] [place] [id number] Health Maintenance Due Date Last Done Comments Pneumococcal Vaccine: 50+ Years (1 of 1 - PCV) 02/17/2022 HIV Screening 08/21/2022 COVID-19 Vaccine ( season) 2024 09/06/2023, 2021, 12/30/2020 Colorectal Cancer Screening: FIT-DNA (Cologuard) 09/16/2025 09/16/2022, 09/16/2022, 09/16/2022 Depression Screening 10/23/2025 10/23/2024, 10/20/19 Hypertension/CHF/CAD Annual BMP Blood Test 10/23/2025 10/23/2024, 04/19/2024, 04/19/2024 Medicare Annual Wellness Visit 10/23/2025 10/23/2024 Social Influencers of Health Screening 10/23/2025 10/23/2024 Cholesterol Screening (Lipid Panel) 10/23/2029 10/23/2024, 04/19/2024, 04/19/2024 DTaP,Tdap,and Td Vaccines (3 - Td or Tdap) 12/16/2031 12/15/2021, 12/02/2011 MMR Vaccines Aged Out 08/01/2013 No longer eligi ble based on patient's age to complete this topic Hepatitis B Vaccines Completed 04/08/2014, 08/31/2013, 08/01/2013 Hepatitis C Screening Completed 07/26/2022 Zoster Vaccines Completed 12/06/2023, 09/06/2023 Influenza Vaccine Completed 06/06/2024, , 07/26/2022, Additional [...] Procedure Name Priority Date/Time Associated Diagnosis Comments COMPREHENSIVE METABOLIC PANEL Routine 10/23/2024 10:19 AM EST Essential hypertension, benign LIPID PANEL WITH REFLEX TO DIRECT LDL Routine 10/23/2024 10:19 AM EST Essential hypertension, benign DEPRESSION SCREENING Routine 10/20/2023 FIT-DNA Routine 09/16/2022 HEPATITIS C SCREENING Routine 07/26/2022 from Last 3 Months or Most Recently Relevant to Health Maintenance Results * (ABNORMAL) Lipid panel with reflex to direct LDL (10/23/2024 10:19 AM EST) Cholesterol 156 0 - 200 mg/dL LAB CHEMISTRY METHOD 10/23/2024 1:00 PM [facility] Triglycerides 70 0 - 150 mg/dL LAB CHEMISTRY METHOD 10/23/2024 1:00 PM [facility] HDL 41 >=40 mg/dL LAB CHEMISTRY METHOD 10/23/2024 1:00 PM [facility] LDL Calculated 101(H) 0 - 100 mg/dL LAB CHEMISTRY METHOD 10/23/2024 1:00 PM [facility] VLDL Cholesterol Lawrence 14 mg/dL LAB CHEMISTRY METHOD 10/23/2024 1:00 PM [facility] Non HDL Chol. (LDL+VLDL) 115 <145 mg/dL LAB CHEMISTRY METHOD 10/23/2024 1:00 PM [facility] Chol/HDL Ratio 3.8 0.0 - 4.4 LAB CHEMISTRY METHOD 10/23/2024 1:00 PM [facility] Blood Venous blood specimen / Unknown Venipuncture / Unknown 10/23/2024 10:19 AM EST 10/23/2024 10:19 AM EST us Yumiko Michelle MD LAB BLOOD ORDERABL ES Final Result [facility] [address] [place] [address], [place] [phone] * Comprehensive metabolic panel (10/23/2024 10:19 AM EST) Sodium 140 133 - 145 mmol/L LAB CHEMISTRY METHOD 10/23/2024 1:00 PM [facility] Potassium 4.3 3.5 - 5.5 mmol/L LAB CHEMISTRY METHOD 10/23/2024 1:00 PM [facility] Chloride 104 96 - 110 mmol/L LAB CHEMISTRY METHOD 10/23/2024 1:00 PM [facility] CO2 32 21 - 32 mmol/L LAB CHEMISTRY METHOD 10/23/2024 1:00 PM [facility] Anion Gap 4 3 - 11 LAB CHEMISTRY METHOD 10/23/2024 1:00 PM [facility] Glucose 96 70 - 100 mg/dL LAB CHEMISTRY METHOD 10/23/2024 1:00 PM [facility] BUN 11 5 - 25 mg/dL LAB CHEMISTRY METHOD 10/23/2024 1:00 PM [facility] Creatinine 0.72 0.70 - 1.30 mg/dL LAB CHEMISTRY METHOD 10/23/2024 1:00 PM [facility] eGFR 110 >=60 mL/min/1. 73m2 LAB CHEMISTRY METHOD 10/23/2024 1:00 PM [facility] Comment:Calculation based on the??Chronic Kidney Disease Epidemiology Collaboration (CKD-EPI) equation refit??without adjustment for race. BUN/Creatinine Ratio 15.3 LAB CHEMISTRY METHOD 10/23/2024 1:00 PM [facility] Calcium 9.3 8.5 - 10.5 mg/dL LAB CHEMISTRY METHOD 10/23/2024 1:00 PM [facility] AST (SGOT) 17 10 - 42 unit/L LAB CHEMISTRY METHOD 10/23/2024 1:00 PM [facility] ALT (SGPT) 22 10 - 60 unit/L LAB CHEMISTRY METHOD 10/23/2024 1:00 PM [facility] Alkaline Phosphatase 73 42 - 121 unit/L LAB CHEMISTRY METHOD 10/23/2024 1:00 PM [facility] Total Protein 7.4 6.0 - 8.0 g/dL LAB CHEMISTRY METHOD 10/23/2024 1:00 PM [facility] Albumin 3.8 3.2 - 5.0 g/dL LAB CHEMISTRY METHOD 10/23/2024 1:00 PM [facility] Total Bilirubin 0.7 0.0 - 1.4 mg/dL LAB CHEMISTRY METHOD 10/23/2024 1:00 PM [facility] Blood Venous blood specimen / Unknown Venipuncture / Unknown 10/23/2024 10:19 AM EST 10/23/2024 10:19 AM EST Yumiko Michelle MD LAB BLOOD ORDERABL ES Final Result [facility] [address] [place] [address], * Depression Screening (10/20/2023) Depression Screening Abstracted us Historical Provider HEALTH MAINTENANCE Final Result * FIT-DNA (Cologuard) (09/16/2022) Pathologist [facility] Colorectal Cancer Screening: FIT-DNA (Cologuard) Negative, Abstracted Historical Provider HEALTH MAINTENANCE Final Result * Hepatitis C Screening (07/26/2022) Hepatitis C Screening Abstracted us Historical Provider HEALTH MAINTENANCE Final Result from Last 3 Months or Most Recently Relevant to Health Maintenance Insurance [employer] Member Subscriber Plan / Payer (Ef fective 2023-Present) Name:Surinder Mckinney Relation to Subscriber:Self Name:Surinder Mckinney Payer ID:[id number] Group ID:[id number] Type:Not on file Address: [place] [address] [address] [id number] Care Teams Driver'S License Examiner Relationship Specialty Start Date End Date Yumiko Michelle MD [address] [place] [phone] PCP - General Internal Medicine 05/06/22
--- OUTSIDE RECORDS SUMMARY | 2024-11-05 09:25 | XMS_ITS | Encounter Summary ---
Author Organization [facility] Address [address] [place] [address] Care Team Providers Care Development Associate Name Role Phone Yumiko Michelle MD Primary Care Prov ider Reason for Visit * Reason Comments Hypertension Encounter Details Date Type Department Care Team ([facility] st Contact Info) Description 10/23/2024 9:30 AM EST Office Visit Adult Medicine [facility] [address] [place] [phone] Yumiko Michelle MD [address] [place] [phone] Encounter for general adult medical examination without abnormal findings (Primary Dx); Essential hypertension, benign; Gastroesophageal reflux disease, unspecified whether esophagitis present; Morbid obesity (CMS/HCC); Advance care planning Social History Tobacco Use Types Packs/Day Years [...] care for your loved ones. For example, child care centre manager or elderly care for an older adult? [...] Orientation Straight 09/20/2024 3: 09 PM EST documented as of this encounter Last Filed Vital Signs Vital Sign Reading Time Taken Comments Blood Pressure 122/74 10/23/2024 9:28 AM EST Pulse 60 10/23/2024 9:28 AM EST Temperature 36.2 ??C (97.1 ??F) 10/23/2024 9:28 AM ES T Respiratory Rate 16 10/23/2024 9:28 AM EST Oxygen Saturation - - Inhaled Oxygen Concentration - - Weight 133 kg (294 lb) 10/23/2024 9:28 AM EST Height - - Body Mass Index 44.7 06/06/2024 2:20 PM EDT documented in this encounter Ordered Prescriptions Prescription Sig Dispense Quantity Refills Last Filled Start Date End Date pantoprazole (PROTONIX) 40 mg EC tablet Take 1 tablet (40 mg total) by mouth 1 (one) time each day. 90 tablet 1 10/23/2024 6 fexofenadine (EDDY) 60 mg tablet Take 1 tablet (60 mg total) by mouth 1 (one) time each day. 90 tablet 3 10/23/2024 6 DULoxetine (CYMBALTA) [address] capsule Take 1 capsule (30 mg total) by mouth 1 (one) time each day. 90 capsule 3 10/23/2024 6 atenoloL (TENORMIN) 50 mg tablet Take 1 tablet (50 mg total) by mouth 1 (one) time each day. 90 each 3 10/23/2024 6 amLODIPine (NORVASC) 5 mg tablet Take 1 tablet (5 mg total) by mouth 1 (one) time each day. 90 each 3 10/23/2024 6 diclofenac (VOLTAREN) 1 % topical gel Apply 1 Dose topically 2 (two) times a day. 100 g 2 10/23/2024 capsaicin (Zostrix) 0.033 % cream Apply 4 g topically 3 times daily as needed (PAIN).Apply 4 g topically 3 times daily as needed (PAIN). 100 g 2 10/23/2024 documented in this encounter Progress Notes * Yumiko Michelle MD - 10/23/2024 9:30 AM ESTAssociated Problem(s): Essential hypertension, benign Well controlled today 122/74. We will continue amlodipine, atenolol. Instructed to follow a low salt diet, and exercise regularly. Orders: Comprehensive metabolic panel; Future Lipid panel with reflex to direct LDL; Future * Yumiko Michelle MD - 10/23/2024 9:30 AM ESTAssociated Problem(s): Morbid obesity (CMS/HCC) Healthy diet, regular exercise, burning more calories than intake were discussed with the patient. BMI is 44.7. * Yumiko Michelle MD - 10/23/2024 9:30 AM ESTAssociated Problem(s): GERD (gastroesophageal reflux disease) Well-controlled on pantoprazole. Will continue same medication. Recommended to avoid taking NSAIDs very frequently. * Yumiko Michelle MD - 10/23/2024 9:30 AM EST Images from the original note were not included. Medicare Annual Wellness Visit Note Patient Name: Surinder Doss Date of : 1970 Race: White Ethnicity: Other , /a, or Hebrew origin Date of Service: 10/23/2024 Surinder is a 54 y.o. male presenting for Hypertension History of Present Illness Patient with a pmh of HTN, GERD, ARACELY on CPAP, morbid obesity, OA comes for AWV and med review. Feels well, compliant with medications, tries to follow the recommended diet, does not exercise regularly. Previously on narcotics, dcd for csc violation. Chronic knee pain. Evaluated by ortho, recommended injections, discussed TKA, but he is not in condition to do these procedures at this time because he lives on a 3rd floor, planning to move to a first floor. 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 Lives with his and his children. Comprehensive Medical and Social History: Patient Active Problem List Diagnosis Essential hypertension, benign Low testosterone Arthralgia of multiple sites Fibromyalgia GERD (gastroesophageal reflux disease) Migraine Depression with anxiety CTS (carpal tunnel syndrome) Vitamin D deficiency Obstructive sleep apnea OA (osteoarthritis) of knee DJD of shoulder Meralgia paresthetica of right side Umbilical hernia without obstruction and without gangrene Morbid obesity (CMS/HCC) Chronic, continuous use of opioids Sweating increase Seasonal allergies Hypercholesterolemia No Known Allergies Current Outpatient Medications Medication Sig Dispense Refill amLODIPine (NORVASC) 5 mg tablet Take 1 tablet (5 mg total) by mouth 1 (one) time each day. 90 each3 atenoloL (TENORMIN) 50 mg tablet Take 1 tablet (50 mg total) by mouth 1 (one) time each day. 90 each 3 capsaicin (Zostrix) 0.033 % cream Apply 4 g topically 3 times daily as needed (PAIN).Apply 4 g topically 3 times daily as needed (PAIN). 100 g 2 celecoxib (CeleBREX) 200 mg capsule Take 1 Capsule by mouth 2 times daily as needed for Pain. diclofenac (VOLTAREN) 1 % topical gel Apply 1 Dose topically 2 (two) times a day. 100 g 2 docusate sodium (COLACE) 250 mg capsule Take 1 Capsule by mouth daily as needed for Constipation. DULoxetine (CYMBALTA) [address] capsule Take 1 capsule (30 mg total) by mouth 1 (one) time each day.90 capsule 3 fexofenadine (EDDY) 60 mg tablet Take 1 tablet (60 mg total) by mouth 1 (one) time each day. 90 tablet 3 pantoprazole (PROTONIX) 40 mg EC tablet Take 1 tablet (40 mg total) by mouth 1 (one) time each day.90 tablet 1 No current facility-administered medications for this visit. Past Medical History: Diagnosis Date Arthralgia of multiple sites 06/14/2011 DX:Arthralgia of multiple sites Chronic, continuous use of opioids 05/03/2019 DX:Chronic, continuous use of opioids CTS (carpal tunnel syndrome) 06/14/2011 DX:CTS (carpal tunnel syndrome) Depression with anxiety 06/14/2011 DX:Depression with anxiety; COMMENT: Sees Mecca Campuzano therapist, Quique Henderson prescriber at [facility] in [place]. Essential hypertension, benign 06/14/2011 DX:Essential hypertension, benign Fibromyalgia 06/14/2011 DX:Fibromyalgia; COMMENT: Per patient. Dx from previous PCP GERD (gastroesophageal reflux disease) 06/14/2011 DX:GERD (gastroesophageal reflux disease) Hypercholesterolemia 06/14/2011 DX:Hypercholesterolemia Low testosterone 06/14/2011 DX:Low testosterone Migraine 06/14/2011 DX:Migraine Morbid obesity (CMS/HCC) 12/23/2016 DX:Morbid obesity (HCC) Sleep apnea 10/30/2012 DX:Sleep apnea Vitamin D deficiency 08/10/2012 DX:Vitamin D deficiency Past Surgical History: Procedure Laterality Date BARIATRIC SURGERY 10/09/2020 PROCEDURE: [place] LAPS GSTRC RSTRICTIV PX LONGITUDINAL GASTRECTOMY; COMMENT: Dr. Dominguez - [place] [facility] 2009, 2010 PROCEDURE: HISTORICAL FOOT SURGERY; COMMENT: [facility]- left metatarsal repair Social History Socioeconomic History Marital status: Spouse name: None Number of children: None Years of education: None Highest education level: None Occupational History None Tobacco Use Smoking status: Never Smokeless tobacco: Never Substance and Sexual Activity Alcohol use: Yes Drug use: Yes Types: Marijuana/Cannabis Sexual activity: None Comment: Tubal Ligation in Other Topics Concern None Social History Narrative 04/16/2015: Lives in [place] with his , 4 boys (15,14,14,12) and 20 yo daughter. No smoking in the home and he feels safe at home. 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 Reports he has scheduled appointments for the eye docto r and dentist. Patient has no complaints at this time. 10/04/2017: Lives in [place] with his , 4boys (17,16,16,14) and his 24 year old daughter is out of the home and living in [place]. Nonsmoking household with working smoke detectors up. No fir earms in the home. He is working at the [employer] in [employer] and notes that he has been doing this for about a year. He feels safe at work and enjoys it. He is scheduled with his eye doctor and his dentist in the next 2-3 months. He [place] [facility] [place] and rheumatology here for his fibromyalgia. Family History Problem Relation Name Age of Onset No Known Problems Mother Arthritis Father GI problems Father No Known Problems Maternal Grandmother Diabetes Maternal Grandfather No Known Problems Paternal Grandmother No Known Problems Paternal Grandfather Asthma Daughter Abel : 09/08/1993 Asthma Son Danish : 04/04/2000 No Known Problems Son Surinder Lloyd : 04/29/2001; fraternal twin No Known Problems Son Surinder Todd : 04/29/2001; fraternal twin No Known Problems Son Romina : 2003 No Known Problems Sister Half paternal No Known Problems Brother Half paternal No Known Problems Sister Half paternal No Known Problems Sister Half paternal Other (Other: HIV) Brother Half paternal No Known Problems Sister Half paternal No Known Problems Sister Half maternal Colon cancer Neg Hx Prostate cancer Neg Hx Heart attack Neg Hx Breast cancer Neg Hx Ovarian cancer Neg Hx Uterine cancer Neg Hx Immunizations: Immunization History Administered Date(s) Administered Hepatitis B (Byhzcvo-Z-Opyil, Recombivax HB-Adult) 19yo and older 08/01/2013, 08/31/2013, 04/08/2014 Influenza Quadravalent, MDCK, 0.5ml, preservative free (Flucelvax) 6mo and older 07/25/2018, 07/30/2019, 06/09/2020, 06/25/2021, 07/26/2022, 06/22/2023 Influenza Quadravalent, MDCK, 0.5ml, with preservative (Flucelvax) 6mo and older 07/04/2017 Influenza trivalent, 0.5mL, preservative free (Fluarix; FluLaval; Fluzone) ages 6mo and older (Afluria) 3 years and older 06/14/2011, 08/10/2012, 07/12/2013, 07/09/2014, 05/23/2015, 09/21/2016, 06/06/2024 MMR, measles mumps and rubella Live (Priorix; M-M-R II) 12mo and older 08/01/2013 [employer] SARS-CoV-2 COVID-19, mRNA, LNP-S, preservative free 12/30/2020, 2021, 09/06/2023 Td Tetanus diptheria (Tdvax) 7yo and older 12/15/2021 Tdap Tetanus diptheria acellular pertussis (Boostrix; Adacel) 7yo and older 12/02/2011 Zoster recombinant (Shingrix) 19yo and older 09/06/2023 Hospitalization in the last year: Has not been hospitalized in the past 12 months. Current Providers and Suppliers: Patient Care Team: Yumiko Michelle MD as PCP - General (Internal Medicine) Patient does not have/use current medical supplier Risk Assessments: Cognitive Function Assessment No cognitive concerns, No screenings indicated. Depression Screening (PHQ2/9): Depression Screening Over the last 2 weeks, how often have you been bothered by little interest or pleasure in doing things?: Not at all Over the last 2 weeks, how often have you been bothered by feeling down, depressed, or hopeless?: Not at all Depression Risk: 0 PHQ9 Full Set of Questions Over the last 2 weeks, how often have you been bothered by little interest or pleasure in doing things?: Not at all Over the last 2 weeks, how often have you been bothered by feeling down, depressed, or hopeless?: Not at all Depression Risk Score NEW: 0 Depression Plan : Depression screening positive. Follow up in assessment and plan. Pain: Pain Medications: Patient does not take any opioid medications BMI: Body mass index is 44.7 kg/m??. The BMI is above average. The patient received dietary education and exercise education because they have an above normal BMI. Functional Ability and Level of Safety Review Health Status: No data recorded Activity of Daily Living (ADLs): No data recorded Instrumental Activities of Daily Living (IADLs): No data recorded Physical Activity: No data recorded Nutritional Assessment: No data recorded Social Influencer of Health (SIOH): Social Influencers of Health Within the past 12 months the food we bought just didn't last and we didn't have money to get more.: Never true How hard is it for you to pay for the very basics like food, housing, medical care, and air conditioning / heating?: Not very hard Are you worried that in the next 2 months you may not have stable housing?: No Do you have access to a variety of food including fruits and vegetables?: Yes Within the last 3 months, how many times did you visit the emergency department for your medical care?: 1 Has the lack of transportation kept you from meetings, work, or from getting things needed for daily living?: No Has the lack of transportation kept you from medical appointments or from getting medications?: No How often do you feel lonely or isolated from those around you?: Never How often do you need to have someone help you when you read instructions, pamphlets, or other written material from your doctor or pharmacy?: Never Sexual Health: Have you been bothered by sexual problems: No Fall Risk: . . . Hearing: No data recorded Vision Screening: Required for Medicare Initial Preventative Physical Exam (IPPE) No data recorded Review of Systems Review of Systems Constitutional: Negative. Respiratory: Negative. Cardiovascular: Negative. Gastrointestinal: Negative. All other systems reviewed and are negative. Objective BP 122/74 Pulse 60 Temp 36.2 ??C (97.1 ??F) (Temporal) Resp 16 Wt 133 kg (294 lb) BMI 44.70 kg/m?? Physical Exam Vitals reviewed. Constitutional: Appearance: Normal appearance. Cardiovascular: Rate and Rhythm: Normal rate and regular rhythm. Heart sounds: Normal heart sounds. Pulmonary: Effort: Pulmonary effort is normal. Breath sounds: Normal breath sounds. Musculoskeletal: General: No swelling. Normal range of motion. Cervical back: Neck supple. Skin: General: Skin is warm. Neurological: General: No focal deficit present. Mental Status: He is alert. Assessment/Plan Patient presented today for an Subsequent Medicare Wellness Visit with management of chronic condition(s). Assessment & Plan Encounter for general adult medical examination without abnormal findings Assessed Essential hypertension, benign Well controlled today 122/74. We will continue amlodipine, atenolol. Instructed to follow a low salt diet, and exercise regularly. Orders: Comprehensive metabolic panel; Future Lipid panel with reflex to direct LDL; Future Gastroesophageal reflux disease, unspecified whether esophagitis present Well-controlled on pantoprazole. Will continue same medication. Recommended to avoid taking NSAIDs very frequently. Morbid obesity (CMS/[facility], [facility]) Healthy diet, regular exercise, burning more calories than intake were discussed with the patient. BMI is 44.7. Advance care planning Advance Care Planning Discussion: Advance Care Planning was discussed. Surinder reports that he does have advance directives and/or surrogate decision maker. Patient has identified their surrogate decision maker. During the visit we discussed: Code Status was discussed No Order A total time of 16 minutes or greater was spent on Advance Care Planning today :Yes, between 16-29 minutes, total actual time 16 (if applicable add billing code 50108 with modifier 25 or modifier 33 if during a medicare wellness visit) Fall Prevention Education Discussed: removal of throw rugs in home, adequate lighting/night lights,pausing with transitional movements, and paying attention to surroundings Health Maintenance Topic Date Due Pneumococcal Vaccine: 50+ Years (1 of 1 - PCV) Never done DTaP,Tdap,and Td Vaccines (3 - Td or Tdap) 06/16/2022 HIV Screening Never done COVID-19 Vaccine ( - season) 2024 Medicare Annual Wellness Visit 10/20/2024 Hypertension/CHF/CAD Annual BMP Blood Test 04/19/2025 Colorectal Cancer Screening: FIT-DNA (Cologuard) 09/16/2025 Depression Screening 10/23/2025 Social Influencers of Health Screening 10/23/2025 Cholesterol Screening (Lipid Panel) 04/19/2029 Hepatitis B Vaccines Completed Influenza Vaccine Completed Zoster Vaccines Completed Hepatitis C Screening Completed HIB Vaccines Aged Out IPV Vaccines Aged Out Hepatitis A Vaccines Aged Out MMR Vaccines Aged Out Varicella Vaccines Aged Out Meningococcal ACWY Vaccine Aged Out Meningococcal B Vacine Aged Out HPV Vaccines Aged Out Pneumococcal Vaccine: Pediatrics (0 to 5 Years) and At-Risk Patients (6 to 64 Years) Aged Out RSV Immunization Patients Under 20 months Aged Out Yumiko Diego MD ADULT MEDICINE [address] Dept: [phone] Dept documented in this encounter Plan of Treatment Upcoming Encounters Date Type Department Care Team (Late st Contact Info) Description 04/23/2025 8:30 AM EDT Office Visit Adult [address] [phone] Yumiko Michelle MD [address] [place] [phone] documented as of this encounter Results * (ABNORMAL) Lipid panel with reflex to direct LDL (10/23/2024 10:19 AM EST) Cholesterol 156 0 - 200 mg/dL LAB CHEMISTRY METHOD 10/23/2024 1:00 PM EST [facility] Triglycerides 70 0 - 150 mg/dL LAB CHEMISTRY METHOD 10/23/2024 1:00 PM EST [facility] HDL 41 >=40 mg/dL LAB CHEMISTRY METHOD 10/23/2024 1:00 PM [facility] LDL Calculated 101(H) 0 - 100 mg/dL LAB CHEMISTRY METHOD 10/23/2024 1:00 PM [facility] VLDL Cholesterol Lawrence 14 mg/dL LAB CHEMISTRY METHOD 10/23/2024 1:00 PM [facility] Non HDL Chol. (LDL+VLDL) 115 <145 mg/dL LAB CHEMISTRY METHOD 10/23/2024 1:00 PM [facility] Chol/HDL Ratio 3.8 0.0 - 4.4 LAB CHEMISTRY METHOD 10/23/2024 1:00 PM [facility] Blood Venous blood specimen / Unknown Venipuncture / Unknown 10/23/2024 10:19 AM EST 10/23/2024 10:19 AM EST Yumiko Michelle MD LAB BLOOD ORDERABL ES Final Result [facility] [address] [place] [address], * Comprehensive metabolic panel (10/23/2024 10:19 AM EST) Sodium 140 133 - 145 mmol/L LAB CHEMISTRY METHOD 10/23/2024 1:00 PM [facility] Potassium 4.3 3.5 - 5.5 mmol/L LAB CHEMISTRY METHOD 10/23/2024 1:00 PM [facility] Chloride 104 96 - 110 mmol/L LAB CHEMISTRY METHOD 10/23/2024 1:00 PM [facility] CO2 32 21 - 32 mmol/L LAB CHEMISTRY METHOD 10/23/2024 1:00 PM [facility] Anion Gap 4 3 - 11 LAB CHEMISTRY METHOD 10/23/2024 1:00 PM [facility] Glucose 96 70 - 100 mg/dL LAB CHEMISTRY METHOD 10/23/2024 1:00 PM [facility] BUN 11 5 - 25 mg/dL LAB CHEMISTRY METHOD 10/23/2024 1:00 PM [facility] Creatinine 0.72 0.70 - 1.30 mg/dL LAB CHEMISTRY METHOD 10/23/2024 1:00 PM [facility] eGFR 110 >=60 mL/min/1. 73m2 LAB CHEMISTRY METHOD 10/23/2024 1:00 PM [facility] Comment:Calculation based on the??Chronic Kidney Disease Epidemiology Collaboration (CKD-EPI) equation refit??without adjustment for race. BUN/Creatinine Ratio 15.3 LAB CHEMISTRY METHOD 10/23/2024 1:00 PM [facility] Calcium 9.3 8.5 - 10.5 mg/dL LAB CHEMISTRY METHOD 10/23/2024 1:00 PM [facility] AST (SGOT) 17 10 - 42 unit/L LAB CHEMISTRY METHOD 10/23/2024 1:00 PM [facility] ALT (SGPT) 22 10 - 60 unit/L LAB CHEMISTRY METHOD 10/23/2024 1:00 PM [facility] Alkaline Phosphatase 73 42 - 121 unit/L LAB CHEMISTRY METHOD 10/23/2024 1:00 PM [facility] Total Protein 7.4 6.0 - 8.0 g/dL LAB CHEMISTRY METHOD 10/23/2024 1:00 PM EST [facility] Albumin 3.8 3.2 - 5.0 g/dL LAB CHEMISTRY METHOD 10/23/2024 1:00 PM EST [facility] Total Bilirubin 0.7 0.0 - 1.4 mg/dL LAB CHEMISTRY METHOD 10/23/2024 1:00 PM EST [facility] Blood Venous blood specimen / Unknown Venipuncture / Unknown 10/23/2024 10:19 AM EST 10/23/2024 10:19 AM EST us Yumiko Michelle MD LAB BLOOD ORDERABL ES Final Result [facility] [address] [place] [address], documented in this encounter Visit Diagnoses Diagnosis Encounter for general adult medical examination without abnormal findings- Primary Essential hypertension, benign Gastroesophageal reflux disease, unspecified whether esophagitis present Morbid obesity ([facility], [facility]) Morbid obesity Advance care planning Other specified counseling documented in this encounter Discontinued Medications Medication Sig Discontinue Reason Start Date End Da te atenoloL (TENORMIN) 50 mg tablet Take 1 tablet (50 mg total) by mouth 1 (one) time each day. Reorder 02/16/2024 10/23/2024 amLODIPine (NORVASC) 5 mg tablet Take 1 tablet (5 mg total) by mouth 1 (one) time each day. Reorder 02/16/2024 10/23/2024 pantoprazole (PROTONIX) 40 mg EC tablet Take 1 tablet (40 mg total) by mouth 1 (one) time each day. Reorder 02/16/2024 10/23/2024 capsaicin (Zostrix) 0.033 % cream Apply 4 g topically 3 times daily as needed (PAIN). Reorder 02/17/2024 10/23/2024 diclofenac (VOLTAREN) 1 % topical gel Apply 1 Dose topically 2 (two) times a day. Reorder 02/17/2024 10/23/2024 DULoxetine (CYMBALTA) [address] capsule Take 1 capsule (30 mg total) by mouth 1 (one) time each day. Reorder 09/06/2024 10/23/2024 fexofenadine (EDDY) 60 mg tablet Take 1 tablet (60 mg total) by mouth 1 (one) time each day. Reorder 09/06/2024 10/23/2024 documented as of this encounter Additional Health Concerns Assessment Noted Time PHQ-9 Depression Total Score: 0 10/23/19 9:32 AM EST documented as of this encounter Care Teams Development Associate Relationship Specialty Start Date End Date Yumiko Michelle MD [address] [place] [id number] PCP - General Internal Medicine 05/06/22 documented as of this encounter
--- OUTSIDE RECORDS SUMMARY | 2024-11-05 09:25 | XMS_ITS | Continuity of Care Document ---
Author Organization kat [facility] Address [address] [address],[address] [place] [address] Phone Care Team Providers Care Office Professional Name Role Phone Z-Converted, Provider Unavailable Unavailabl [...] Date Provider Providers Copied on Encounter [facility], [address] [place] [address],[facility] [address], [place], [place], [id number], tel:[phone] Converted Locations No Information 8 Z-Convert ed Provider. . [facility], [address] [address],[address], [place], [place], [id number], [place] tel:[phone] [facility] Pain in joint involving lower legBackache, unspecifiedEdem aCough 8 Z-Convert ed Provider. . [facility], [address] [place] [address],[address], [place], [place], [id number], tel:[phone] Converted Locations No Information 8 Z-Convert ed Provider. . [facility], [address] [facility] [address], [place], [place], [id number], [place] tel:[phone] [facility] Unspecified essential hypertension Jun- 0 8 Z-Convert ed Provider. . [facility], [address] [facility],[address] [facility], [place], [place], [id number], [place] tel:[phone] Converted Locations No Information 8 Dobles Lissa . [address], [place], [id number] . tel:[phone] [facility], [address] [facility] [address], [place], [place], [id number], [place] tel:[phone] [facility] Urinary frequency 8 Dobles Lissa . [address], [place], [id number] . tel:[phone] [facility], [address] [facility] [address], [place], [place], [id number], [place] tel:[phone] [facility] Unspecified chest pain 8 Z-Convert ed Provider. . Family History Family Member Type Diagnosis Age At Onset No Information Immunizations Vaccine Date Status Comments INFLUENZA VACCINE AGE 3 AND ABOVE administered Source: New Immuniza tion Record Payers Payer name Insurance type Covered democrat ID Authoriza tion(s) No Information Social History [...]
== END 2024-11-05 09:51 | disposition home or self-care (01) ==
PROVIDERS: PCP Internal Medicine; Visit Provider Physician Assistant
DX: M77.12 Lateral epicondylitis, left elbow (principal)
CPT/HCPCS: 99213; G2211

== ENCOUNTER → 2024-11-05 08:58 | Outpatient (BNV) | payer OTHER, SELFPAY | PROVIDERS: Visit Provider Radiology Diagnostic Radiology | DX: M79.622 Pain in left upper arm (principal) | CPT/HCPCS: 73060 ==

== ENCOUNTER 2024-11-05 12:19 | Outpatient (REF) | payer OTHER, SELFPAY ==
--- NOTE | ~2024-11-05 | XR_ITS ---
EXAMINATION: XR HUMERUS, LEFT CLINICAL INFORMATION: R52 - Pain, unspecified COMPARISON: X-ray report dated August 26, 2009. TECHNIQUE: AP and lateral views of the left humerus. FINDINGS: Old traumatic deformity distal diaphysis of the humerus. No acute cortical disruption. No periosteal bone reaction. No lytic or blastic lesions. XR/XR humerus LT IMPRESSION: No acute fracture. Old traumatic deformity, distal diaphysis. Electronically signed by: Daniel Go MD 11/06/2024 10:36 AM RONEN AGUILAR
--- OUTSIDE RECORDS SUMMARY | 2024-11-06 14:57 | XMS_ITS | Encounter Summary ---
Author Organization [employer] [facility] Address [address] [facility] 7t [place] [address] Care Team Providers Care Splitter Hand Name Role Phone Unavailable Primary Care Provider Unavailabl e Encounter Details Date Type Department Care Team (Latest Contact Info) Description 05/15/2019 Abstract [facility] CONVERSIONS Dental, Provider, DDS Social History Tobacco [...] 10:30 AM EST Medication Management [facility] MEDICINE [address] [place] [address] documented as of this encounter Visit Diagnoses Not on filedocumented in this encounter
--- OUTSIDE RECORDS SUMMARY | 2024-11-06 14:57 | XMS_ITS | Continuity of Care Document ---
Author Organization [facility] Address [address] [address],[address] [place] [address] Phone Care Team Providers Care Substation Manager Name Role Phone Z-Converted, Provider Unavailable [...] Date Provider Providers Copied on Encounter [facility], [address] [place] [address],[facility] [address], [place], [place], [id number], tel:[phone] Converted Locations No Information 8 Z-Convert ed Provider. . [facility], [address] [address],[address], [place], [place], [id number], [place] tel:[phone] [facility] Pain in joint involving lower legBackache, unspecifiedEdem aCough 8 Z-Convert ed Provider. . [facility], [address] [place] [address],[address], [place], [place], [id number], tel:[phone] Converted Locations No Information 8 Z-Convert ed Provider. . [facility], [address] [facility] [address], [place], [place], [id number], [place] tel:[phone] [facility] Unspecified essential hypertension Jun- 0 8 Z-Convert ed Provider. . [facility], [address] [facility] [address] [facility], [place], [place], [id number], [place] tel:[phone] Converted Locations No Information 8 Dobles Lissa . [address] [place], [place], [id number] . tel:[phone] [facility], [address] [facility] [address], [place], [place], [id number], [place] tel:[phone] [facility] Urinary frequency 8 Dobles Lissa . [address], [place], [id number] . tel:[phone] [facility], [address] [facility] [address], [place], [place], [id number], [place] tel:[phone] [facility] Unspecified chest pain 8 Z-Convert ed Provider. . Family History Family Member Type Diagnosis Age At Onset No Information Immunizations Vaccine Date Status Comments INFLUENZA VACCINE AGE 3 AND ABOVE administered Source: New Immuniza tion Record Payers Payer name Insurance type Covered alliance party ID Authoriza tion(s) No Information Social [...]
--- OUTSIDE RECORDS SUMMARY | 2024-11-06 14:57 | XMS_ITS | Encounter Summary ---
Author Organization [facility] Address [address] [place] [address] Care Team Providers Care Photo Print Specialist Name Role Phone Yumiko Michelle MD Primary Care Prov ider Reason for Visit * Reason Comments Hypertension Encounter Details Date Type Department Care Team ([facility] st Contact Info) Description 10/23/2024 9:30 AM EST Office Visit Adult Medicine [facility] [address] [place] [phone] Yumiko Michelle MD [address] [place] [address] Encounter for general adult medical examination without [...] for your loved ones. For example, child welfare counselor or elderly care for an older adult? [...] Race: White Ethnicity: Other , /a, or Indonesian origin Date of Service: 10/23/2024 Surinder is [...] to a first floor. 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 Lives with his and his [...] Mecca Campuzano therapist, Quique Henderson prescriber at [facility] ([facility]) in [place]. Essential hypertension, benign 06/14/2011 DX:Essential hypertension, benign [...] Procedure Laterality Date BARIATRIC SURGERY 10/09/2020 PROCEDURE: [place] LAPS GSTRC RSTRICTIV PX LONGITUDINAL GASTRECTOMY; COMMENT: Dr. Dominguez - [place] FOOT SURGERY 2009, 2010 PROCEDURE: HISTORICAL FOOT SURGERY; COMMENT: [facility]- left metatarsal repair Social History Socioeconomic [...] None Social History Narrative 04/16/2015: Lives in [place] with his , 4 boys (15,14,14,12) and 20 yo daughter. No smoking in the home and he feels safe at home. 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 Reports he has scheduled appointments for the eye docto r and dentist. Patient has no complaints at this time. 10/04/2017: Lives in [place] with his , 4boys (17,16,16,14) and his 24 year old daughter is out of the home and living in [place]. Nonsmoking household with working smoke detectors up. No fir earms in the home. He is working at the [employer] and notes that he has been doing this for about a year. He feels safe at work and enjoys it. He is scheduled with his eye doctor and his dentist in the next 2-3 months. He sees pulmonolo gy here at [facility] for his sleep apnea and rheumatology here [...] Immunization History Administered Date(s) Administered Hepatitis B (Tzgmaos-D-Zmmlb, Recombivax HB-Adult) 19yo and older 08/01/2013, 08/31/2013, [...] (Priorix; M-M-R II) 12mo and older 08/01/2013 [employer] SARS-CoV-2 COVID-19, mRNA, LNP-S, preservative free 12/30/2020, [...] avoid taking NSAIDs very frequently. Morbid obesity (CMS/[facility]) Healthy diet, regular exercise, burning more calories [...] time 16 (if applicable add billing code 35194 with modifier 25 or modifier 33 if [...] Aged Out Yumiko Diego MD ADULT MEDICINE [address] Dept: [phone] Dept documented in this encounter Plan of Treatment Upcoming Encounters Date Type Department Care Team (Late st Contact Info) Description 04/23/2025 8:30 AM EDT Office Visit Adult [address] [phone] Yumiko Michelle MD [address] [place] [phone] documented as of this encounter Results * (ABNORMAL) Lipid panel with reflex to direct LDL (10/23/2024 10:19 AM EST) Cholesterol 156 0 - 200 mg/dL LAB CHEMISTRY METHOD 10/23/2024 1:00 PM EST [facility] Triglycerides 70 0 - 150 mg/dL LAB CHEMISTRY METHOD 10/23/2024 1:00 PM EST [facility] HDL 41 >=40 mg/dL LAB CHEMISTRY METHOD 10/23/2024 1:00 PM [facility] LDL Calculated 101(H) 0 - 100 mg/dL LAB CHEMISTRY METHOD 10/23/2024 1:00 PM [facility] VLDL Cholesterol Lawrence 14 mg/dL LAB CHEMISTRY METHOD 10/23/2024 1:00 PM [facility] Non HDL Chol. (LDL+VLDL) 115 <145 mg/dL LAB CHEMISTRY METHOD 10/23/2024 1:00 PM [facility] Chol/HDL Ratio 3.8 0.0 - 4.4 LAB CHEMISTRY METHOD 10/23/2024 1:00 PM [facility] Blood Venous blood specimen / Unknown Venipuncture / Unknown 10/23/2024 10:19 AM EST 10/23/2024 10:19 AM EST Yumiko Michelle MD LAB BLOOD ORDERABL ES Final Result [facility] [address] [place] [address], * Comprehensive metabolic panel (10/23/2024 10:19 AM EST) Sodium 140 133 - 145 mmol/L LAB CHEMISTRY METHOD 10/23/2024 1:00 PM [facility] Potassium 4.3 3.5 - 5.5 mmol/L LAB CHEMISTRY METHOD 10/23/2024 1:00 PM [facility] Chloride 104 96 - 110 mmol/L LAB CHEMISTRY METHOD 10/23/2024 1:00 PM [facility] CO2 32 21 - 32 mmol/L LAB CHEMISTRY METHOD 10/23/2024 1:00 PM [facility] Anion Gap 4 3 - 11 LAB CHEMISTRY METHOD 10/23/2024 1:00 PM [facility] Glucose 96 70 - 100 mg/dL LAB CHEMISTRY METHOD 10/23/2024 1:00 PM [facility] BUN 11 5 - 25 mg/dL LAB CHEMISTRY METHOD 10/23/2024 1:00 PM [facility] Creatinine 0.72 0.70 - 1.30 mg/dL LAB CHEMISTRY METHOD 10/23/2024 1:00 PM [facility] eGFR 110 >=60 mL/min/1. 73m2 LAB CHEMISTRY METHOD 10/23/2024 1:00 PM [facility] Comment:Calculation based on the??Chronic Kidney Disease Epidemiology Collaboration (CKD-EPI) equation refit??without adjustment for race. BUN/Creatinine Ratio 15.3 LAB CHEMISTRY METHOD 10/23/2024 1:00 PM [facility] Calcium 9.3 8.5 - 10.5 mg/dL LAB CHEMISTRY METHOD 10/23/2024 1:00 PM [facility] AST (SGOT) 17 10 - 42 unit/L LAB CHEMISTRY METHOD 10/23/2024 1:00 PM [facility] ALT (SGPT) 22 10 - 60 unit/L LAB CHEMISTRY METHOD 10/23/2024 1:00 PM [facility] Alkaline Phosphatase 73 42 - 121 unit/L LAB CHEMISTRY METHOD 10/23/2024 1:00 PM [facility] Total Protein 7.4 6.0 - 8.0 g/dL LAB CHEMISTRY METHOD 10/23/2024 1:00 PM EST [facility] Albumin 3.8 3.2 - 5.0 g/dL LAB CHEMISTRY METHOD 10/23/2024 1:00 PM EST [facility] Total Bilirubin 0.7 0.0 - 1.4 mg/dL LAB CHEMISTRY METHOD 10/23/2024 1:00 PM EST [facility] Blood Venous blood specimen / Unknown Venipuncture / Unknown 10/23/2024 10:19 AM EST 10/23/2024 10:19 AM EST us Yumiko Michelle MD LAB BLOOD ORDERABL ES Final Result [facility] ([facility] [address] [place] [address], documented in this encounter Visit Diagnoses Diagnosis Encounter for general adult medical examination without abnormal findings- Primary Essential hypertension, benign Gastroesophageal reflux disease, unspecified whether esophagitis present Morbid obesity ([facility]) Morbid obesity Advance care planning Other specified [...] documented as of this encounter Care Teams Photo Print Specialist Relationship Specialty Start Date End Date Yumiko Michelle MD [address] [place] [id number] PCP - General Internal Medicine 05/06/22 documented as of this encounter
--- OUTSIDE RECORDS SUMMARY | 2024-11-06 14:57 | XMS_ITS | Clinical Summary ---
Author Organization [address] Address [address] [place] [address] Phone Care Team Providers Care Detector Car Operator Name Role Phone Yumiko Michelle MD Primary [...] [facility]) in [place]. CTS (carpal tunnel syndrome) 06/14/2011 Encounters Date Type Department Care Team Description 10/23/2024 9:30 AM EST Office Visit Adult Medicine [address] [phone] Yumiko Michelle MD Encounter for general adult medical examination without abnormal findings (Primary Dx); Essential hypertension, benign; Gastroesophageal reflux disease, unspecified whether esophagitis present; Morbid obesity (CMS/HCC); Advance care planning from Last 3 Months Immunizations Name Administration Dates Next Due Hepatitis B (Mvmupey-P-Nyqty , Recombivax HB-Adult) 19yo and older 04/08/2014,08/31/2013,08/01/2013 [...] SURGERY 2010 PROCEDURE: HISTORICAL FOOT SURGERY; COMMENT: [facility]- left metatarsal repair BARIATRIC SURGERY 10/09/2020 PROCEDURE: [place] LAPS GSTRC RSTRICTIV PX LONGITUDINAL GASTRECTOMY; COMMENT: Dr. Dominguez [facility] Medical History Medical History Date Comments [...] [facility]) in [place]. Migraine 06/14/2011 DX:Migraine GERD (gastroesophageal reflux disease) [...] care for your loved ones. For example, vocational childcare teacher or elderly care for an older adult? [...] 8:30 AM EDT Office Visit Adult Medicine [address] [phone] Yumiko Michelle MD [address] [place] [phone] Health Maintenance Due Date Last Done Comments [...] mg/dL LAB CHEMISTRY METHOD 10/23/2024 1:00 PM [facility] Triglycerides 70 0 - 150 mg/dL LAB CHEMISTRY METHOD 10/23/2024 1:00 PM [facility] HDL 41 >=40 mg/dL LAB CHEMISTRY METHOD 10/23/2024 1:00 PM [facility] LDL Calculated 101(H) 0 - 100 mg/dL LAB CHEMISTRY METHOD 10/23/2024 1:00 PM [facility] VLDL Cholesterol Lawrence 14 mg/dL LAB CHEMISTRY METHOD 10/23/2024 1:00 PM [facility] Non HDL Chol. (LDL+VLDL) 115 <145 mg/dL LAB CHEMISTRY METHOD 10/23/2024 1:00 PM [facility] Chol/HDL Ratio 3.8 0.0 - 4.4 LAB CHEMISTRY METHOD 10/23/2024 1:00 PM [facility] Blood Venous blood specimen / Unknown Venipuncture / Unknown 10/23/2024 10:19 AM EST 10/23/2024 10:19 AM EST us Yumiko Michelle MD LAB BLOOD ORDERABL ES Final Result [facility] [address] [place] [address], [place] [phone] * Comprehensive metabolic panel (10/23/2024 10:19 AM EST) Sodium 140 133 - 145 mmol/L LAB CHEMISTRY METHOD 10/23/2024 1:00 PM [facility] Potassium 4.3 3.5 - 5.5 mmol/L LAB CHEMISTRY METHOD 10/23/2024 1:00 PM [facility] Chloride 104 96 - 110 mmol/L LAB CHEMISTRY METHOD 10/23/2024 1:00 PM [facility] CO2 32 21 - 32 mmol/L LAB CHEMISTRY METHOD 10/23/2024 1:00 PM [facility] Anion Gap 4 3 - 11 LAB CHEMISTRY METHOD 10/23/2024 1:00 PM [facility] Glucose 96 70 - 100 mg/dL LAB CHEMISTRY METHOD 10/23/2024 1:00 PM [facility] BUN 11 5 - 25 mg/dL LAB CHEMISTRY METHOD 10/23/2024 1:00 PM [facility] Creatinine 0.72 0.70 - 1.30 mg/dL LAB CHEMISTRY METHOD 10/23/2024 1:00 PM [facility] eGFR 110 >=60 mL/min/1. 73m2 LAB CHEMISTRY METHOD 10/23/2024 1:00 PM [facility] Comment:Calculation based on the??Chronic Kidney Disease Epidemiology Collaboration (CKD-EPI) equation refit??without adjustment for race. BUN/Creatinine Ratio 15.3 LAB CHEMISTRY METHOD 10/23/2024 1:00 PM [facility] Calcium 9.3 8.5 - 10.5 mg/dL LAB CHEMISTRY METHOD 10/23/2024 1:00 PM [facility] AST (SGOT) 17 10 - 42 unit/L LAB CHEMISTRY METHOD 10/23/2024 1:00 PM [facility] ALT (SGPT) 22 10 - 60 unit/L LAB CHEMISTRY METHOD 10/23/2024 1:00 PM [facility] Alkaline Phosphatase 73 42 - 121 unit/L LAB CHEMISTRY METHOD 10/23/2024 1:00 PM [facility] Total Protein 7.4 6.0 - 8.0 g/dL LAB CHEMISTRY METHOD 10/23/2024 1:00 PM [facility] Albumin 3.8 3.2 - 5.0 g/dL LAB CHEMISTRY METHOD 10/23/2024 1:00 PM [facility] Total Bilirubin 0.7 0.0 - 1.4 mg/dL LAB CHEMISTRY METHOD 10/23/2024 1:00 PM [facility] Blood Venous blood specimen / Unknown Venipuncture / Unknown 10/23/2024 10:19 AM EST 10/23/2024 10:19 AM EST Yumiko Michelle MD LAB BLOOD ORDERABL ES Final Result [facility] [address] [place] [address], * Depression Screening (10/20/2023) Depression Screening Abstracted us Historical Provider HEALTH MAINTENANCE Final Result * FIT-DNA (Cologuard) (09/16/2022) Pathologist [facility] Colorectal Cancer Screening: FIT-DNA (Cologuard) [...] ID:[id number] Group ID:[id number] Type:Not on file Address: [address] [address] [address] [address] Care Teams Detector Car Operator Relationship Specialty Start Date End Date Yumiko Michelle MD [address] [place] [phone] PCP - General Internal Medicine 05/06/22
--- OUTSIDE RECORDS SUMMARY | 2024-11-06 14:57 | XMS_ITS | Clinical Summary ---
Author Organization [employer] Address [address] [facility] 7t [place] [address] Care Team Providers Care Director Of Enterprise Applications Name Role Phone Unavailable Primary Care Provider Unavailabl e Social History Tobacco Use Types Packs/Day Years Used Date Smoking Tobacco: Never Assessed Sex and Gender Information Value Date Recorded Sex Assigned at Male 07/12/2022 10:25 AM EDT Legal Sex Male 10:25 AM EDT Gender Identity Not on file Sexual Orientation Not on file Plan of Treatment Upcoming Encounters Date Type Department Care Team ([facility] st Contact Info) Description 11/09/2024 10:30 AM EST Medication Management [facility] MEDICINE [address] [place] [address] Health Maintenance Due Date Last Done Comments [...]
== END 2024-11-05 12:20 | disposition home or self-care (01) ==
LOC: HO.HOSX 12:19
PROVIDERS: Visit Provider Physician Assistant
DX: R52 Pain, unspecified (principal); M77.12 Lateral epicondylitis, left elbow; Z87.81 Personal history of (healed) traumatic fracture
CPT/HCPCS: 73060; 99212